=== PATIENT | male | born 1930 | race Caucasian/White ===

== ENCOUNTER → 2016-07-03 | Outpatient (REF) | payer MEDICARE, OTHER ==
[~2016-07-03] MED LIST: ALLO100T PO; ASPI1TAB PO; ASPI325T PO; ATOR40TA PO; DIGO0.12 PO; FINA5TAB2 PO; METO25TAB OR; NEXI40CA PO; PERC5TAB6 PO; TAMS0.4C2 PO; fish oil OR; levothyroxine OR; theophylline OR; tylenol OR; ventolin inhaler
[2016-07-03 13:53] LABS: PERCENT SATURATION 9.7 % (19.7-37.4)
== END ==
LOC: M LAB REF 13:11
PROVIDERS: ATTEND Internal Medicine Medical Oncology
DX: C91.90 Lymphoid leukemia, unspecified not having achieved remission (principal)

== ENCOUNTER → 2016-07-14 | Outpatient (REF) | payer MEDICARE, OTHER ==
[2016-07-14 13:46] LABS: PERCENT SATURATION 24.9 % (19.7-37.4)
== END ==
LOC: M LAB REF 12:58
PROVIDERS: ATTEND Internal Medicine Nephrology
DX: N18.9 Chronic kidney disease, unspecified (principal); D63.1 Anemia in chronic kidney disease

== ENCOUNTER → 2017-02-02 | Outpatient (CLI) | payer MEDICARE, OTHER ==
[~2017-02-02] MED LIST changes: -ATOR40TA PO; +ATOR40TA75 PO; +GASTROGRAFIN SOLUTION 30ML (Q9963) As Ordered ONE; +PERC5TAB12 PO; -PERC5TAB6 PO
--- NOTE | 2017-02-02 17:21 | REP ---
Clinical: History of testicular cancer, non-small cell lung cancer, chronic lymphocytic leukemia. Technique: Axial noncontrast images from the thoracic inlet to the upper abdomen with coronal and sagittal re-formations. Comparison: 06/19/2016. Findings: Moderate diffuse COPD and emphysematous changes are appreciated including perihilar and lower lobe bronchiectasis, as well as scattered scarring predominate noted in the left apex and right upper lobe and to a lesser extent the bilateral lung bases. An 8 mm noncalcified density in the subpleural right middle lobe (image 53) appears less conspicuous than prior examination. No further consolidation, significant nodule or mass lesion appreciated. No pleural effusion or pneumothorax. Tracheobronchial tree is patent. Right-sided volume loss and mediastinal shift is consistent with partial lobectomy as are the surgical clips in the right hilum. Sub centimeter mediastinal lymph nodes are nonspecific and remain unchanged. Atherosclerotic changes to the thoracic aorta and coronary arteries noted without aortic aneurysm or cardiomegaly. Surrounding musculoskeletal structures demonstrate osteopenia and degenerative changes including old healed right rib fractures. Impression: 1. Diffuse moderate COPD and emphysematous changes along with bronchiectasis and scattered scarring as well as postsurgical changes involving the right hemithorax which remains stable. 2. 8 mm noncalcified density in the periphery of the right middle lobe is less conspicuous than prior examination with less solid component noted. However, the patient's history a follow-up examination at 6-9 months may be warranted. 3. No further acute mediastinal or pleuroparenchymal process appreciated. Signed by Sam Maier MD 02/02/2017 05:13 P
--- NOTE | 2017-02-02 17:32 | REP ---
Clinical: History of testicular cancer, non-small cell lung cancer, chronic lymphocytic leukemia for evaluation of bladder mass. Comparison: 12/01/2016. Findings: Lung bases demonstrate moderate emphysematous changes and stable 9 mm nodule in the periphery of the right middle lobe along with bibasilar scarring. Liver, spleen, pancreas, gallbladder, bilateral adrenal glands are normal. Left kidney appears atrophic and bilateral renal rounded lesions are appreciated likely representing simple and hyperdense cysts although mass lesion cannot be excluded in exophytic right lateral lesion measuring 2.2 cm. The enteric system is without obstruction or acute inflammatory process scattered sigmoid diverticula noted without acute diverticulitis. Pelvis demonstrates enlarged prostate gland with mass effect extending into the bladder base which warrants urological consultation. No ascites. No significant adenopathy. No further obvious mass lesion appreciated. Atherosclerotic changes to the aorta and vasculature noted along with aorto-iliac stents. No free air. Osseous structures demonstrate degenerative changes without focal osseous abnormality. Impression: 1. Stable 9 mm right middle lobe lung nodule and bibasilar emphysematous changes with scarring. 2. Renal lesions likely representing simple and complex cysts although ultrasound may be warranted for further investigation to rule out right renal mass. 3. Diverticulosis without acute diverticulitis. 4. Enlarged prostate gland with significant mass effect into the base of the bladder warrants urological consultation. 5. No ascites, adenopathy, or further mass lesion identified within the abdomen and pelvis. Signed by Sam Maier MD 02/02/2017 05:23 P
== END ==
LOC: M RAD 15:06
PROVIDERS: ATTEND Internal Medicine Medical Oncology
DX: C34.91 Malignant neoplasm of unspecified part of right bronchus or lung (principal); N28.1 Cyst of kidney, acquired; K57.90 Diverticulosis of intestine, part unspecified, without perforation or abscess without bleeding; Z85.47 Personal history of malignant neoplasm of testis; C91.10 Chronic lymphocytic leukemia of B-cell type not having achieved remission
CPT/HCPCS: 71250; 74176; Q9963

== ENCOUNTER 2017-08-14 18:17 | Inpatient (IN) | payer MEDICARE, OTHER ==
[2017-08-14 19:31] LABS: BASO % 0.4 % (0.0-1.0); EOS # 0.1 10^3/uL (0.0-0.50); EOS % 1.3 % (0.0-3.0); HEMATOCRIT 33.2 % (42.0-52.0); IMMATURE GRANULOCYTE % 0.9 % (0-3.0); LYMPH % 11.6 % (24.0-44.0); MEAN CORPUSCULAR HEMOGLOBIN 29.7 pg (27.0-33.0); MEAN CORPUSCULAR HGB CONC 33.1 g/dl (32.0-36.5); MEAN CORPUSCULAR VOLUME 89.7 fl (80.0-96.0); MONO # 1.1 10^3/uL (0.0-0.8); MONO % 13.4 % (0.0-5.0); NEUTROPHILS # 5.9 10^3/uL (1.8-7.7); NEUTROPHILS % 72.4 % (36.0-66.0); PLATELET COUNT, AUTOMATED 260 10^3/uL (150-450); RED CELL DISTRIBUTION WIDTH 13.9 % (11.5-14.5); WHITE BLOOD COUNT 8.2 10^3/uL (4.0-10.0)
[2017-08-14 19:44] LABS: INR 1.06
[2017-08-14 20:10] LABS: LACTIC ACID SEPSIS PROTOCOL 1.1 MMOL/L (0.4-2.0)
[2017-08-14 20:10] LABS: ALBUMIN 2.8 GM/DL (3.2-5.2); ALBUMIN/GLOBULIN RATIO 0.64 (1.00-1.93); ALKALINE PHOSPHATASE 78 U/L (45-117); ALT/SGPT 10 U/L (12-78); ANION GAP 9 MEQ/L (8-16); AST/SGOT 9 U/L (7-37); BILIRUBIN,DIRECT 0.1 MG/DL (0.0-0.2); BILIRUBIN,TOTAL 0.3 MG/DL (0.2-1.0); BLOOD UREA NITROGEN 18 MG/DL (7-18); CALCIUM LEVEL 8.6 MG/DL (8.8-10.2); CARBON DIOXIDE LEVEL 24 MEQ/L (21-32); CHLORIDE LEVEL 106 MEQ/L (98-107); CPK CREATINE PHOSPHOKINASE 29 U/L (39-308); CREATININE FOR GFR 2.01 MG/DL (0.70-1.30); GLOMERULAR FILTRATION RATE 33.7 (>35); GLUCOSE, FASTING 105 MG/DL (70-100); POTASSIUM SERUM 4.3 MEQ/L (3.5-5.1); SODIUM LEVEL 139 MEQ/L (136-145); TOTAL PROTEIN 7.2 GM/DL (6.4-8.2); TROPONIN I < 0.02 NG/ML (< 0.10)
[2017-08-14 20:11] LABS: INFLUENZA A AMPLIFICATION NEGATIVE (NEGATIVE); INFLUENZA B AMPLIFICATION NEGATIVE (NEGATIVE)
[2017-08-14 20:15] LABS: MB/CK RELATIVE INDEX 3.44 (< OR =4); NT-PRO BNP 389 PG/ML (<450); THYROID STIMULATING HORMONE 0.642 uIU/ML (0.358-3.740)
[2017-08-14 20:20] LABS: DIGOXIN LEVEL 0.1 NG/ML (0.5-2.0)
[2017-08-14] MEDS: IPRATROPIUM 0.5MG/ALBUTEROL 2.5MG INH SOL UD 3ML (DUONEB)(J7620) NEB (20:20)
[2017-08-14] MEDS: NS 500 ML IV (22:00)
[2017-08-15] MEDS ORDERED: ALBUTEROL 90 MCG/ACT 8GM HFA INHALER INH (02:30)
[2017-08-15] MEDS ORDERED: PILL CUTTER/CRUSHER XX (03:00)
[2017-08-15] MEDS ORDERED: ACETAMINOPHEN TAB 650MG DOSE (2X325MG) As Ordered (03:21)
[2017-08-15] MEDS: ONDANSETRON 4MG/2ML VIAL (J2405) IV (03:30)
[2017-08-15] MEDS: ACETAMINOPHEN TAB 650MG DOSE (2X325MG) PO (03:30)
[2017-08-15] MEDS: GASTROGRAFIN SOLUTION 30ML PO ×2 (03:42→04:15)
[2017-08-15] MEDS: NS 1,000 ML IV ×3 (03:45→21:20)
[2017-08-15] MEDS: LEVOTHYROXINE 112MCG TABLET (0.112MG) PO (05:34)
[2017-08-15] MEDS: HEPARIN SOD (PORCINE) 5000 UNITS/ML VIAL SC ×3 (05:34→21:20)
[2017-08-15 07:19] LABS: ALBUMIN 2.3 GM/DL (3.2-5.2); ALBUMIN/GLOBULIN RATIO 0.64 (1.00-1.93); ALKALINE PHOSPHATASE 63 U/L (45-117); ALT/SGPT 6 U/L (12-78); ANION GAP 11 MEQ/L (8-16); AST/SGOT 8 U/L (7-37); BILIRUBIN,TOTAL 0.3 MG/DL (0.2-1.0); BLOOD UREA NITROGEN 17 MG/DL (7-18); CALCIUM LEVEL 7.9 MG/DL (8.8-10.2); CARBON DIOXIDE LEVEL 22 MEQ/L (21-32); CHLORIDE LEVEL 109 MEQ/L (98-107); CREATININE FOR GFR 1.86 MG/DL (0.70-1.30); GLOMERULAR FILTRATION RATE 36.9 (>35); GLUCOSE, FASTING 106 MG/DL (70-100); SODIUM LEVEL 142 MEQ/L (136-145); TOTAL PROTEIN 5.9 GM/DL (6.4-8.2)
[2017-08-15] MEDS: FINASTERIDE 5 MG TAB PO (08:29)
[2017-08-15] MEDS: PANTOPRAZOLE 40MG INJ (PROTONIX) (C9113) IV (08:29)
[2017-08-15] MEDS: METOPROLOL TART 25 MG TABLET PO ×2 (08:30→21:24)
[2017-08-15] MEDS: ALLOPURINOL 300 MG TAB PO (08:30)
[2017-08-15] MEDS: CETIRIZINE (ZyrTEC) 10 MG TAB PO (09:59)
[2017-08-15] MEDS: ALBUTEROL SULFATE 2.5 MG/0.5 ML INH NEB SOLN INH (20:28)
[2017-08-15] MEDS: TAMSULOSIN 0.4 MG CAP PO (21:20)
[2017-08-15] MEDS: ROSUVASTATIN 10 MG TAB (CRESTOR) PO (21:20)
[2017-08-16] MEDS: LEVOTHYROXINE 112MCG TABLET (0.112MG) PO (06:07)
[2017-08-16] MEDS: HEPARIN SOD (PORCINE) 5000 UNITS/ML VIAL SC ×3 (06:07→20:55)
[2017-08-16] MEDS: PANTOPRAZOLE 40MG INJ (PROTONIX) (C9113) IV (07:48)
[2017-08-16] MEDS: FINASTERIDE 5 MG TAB PO (07:48)
[2017-08-16] MEDS: CETIRIZINE (ZyrTEC) 10 MG TAB PO (07:48)
[2017-08-16] MEDS: ALLOPURINOL 300 MG TAB PO (07:49)
[2017-08-16] MEDS: amLODIPine 5 MG TAB PO (07:49)
[2017-08-16] MEDS: METOPROLOL TART 25 MG TABLET PO ×2 (07:49→20:55)
[2017-08-16 08:01] LABS: HEMATOCRIT 27.5 % (42.0-52.0); HEMOGLOBIN 8.9 g/dl (14.0-18.0); MEAN CORPUSCULAR HEMOGLOBIN 29.5 pg (27.0-33.0); MEAN CORPUSCULAR HGB CONC 32.4 g/dl (32.0-36.5); MEAN CORPUSCULAR VOLUME 91.1 fl (80.0-96.0); PLATELET COUNT, AUTOMATED 177 10^3/uL (150-450); RED BLOOD COUNT 3.02 10^6/uL (4.30-6.10); RED CELL DISTRIBUTION WIDTH 13.9 % (11.5-14.5); WHITE BLOOD COUNT 8.3 10^3/uL (4.0-10.0)
[2017-08-16 08:19] LABS: ANION GAP 8 MEQ/L (8-16); BLOOD UREA NITROGEN 13 MG/DL (7-18); CALCIUM LEVEL 7.5 MG/DL (8.8-10.2); CARBON DIOXIDE LEVEL 22 MEQ/L (21-32); CHLORIDE LEVEL 109 MEQ/L (98-107); CREATININE FOR GFR 1.72 MG/DL (0.70-1.30); GLOMERULAR FILTRATION RATE 40.3 (>35); GLUCOSE, FASTING 104 MG/DL (70-100); MAGNESIUM LEVEL 1.5 MG/DL (1.8-2.4); POTASSIUM SERUM 3.9 MEQ/L (3.5-5.1); SODIUM LEVEL 139 MEQ/L (136-145)
[2017-08-16] MEDS: ALBUTEROL SULFATE 2.5 MG/0.5 ML INH NEB SOLN INH ×3 (09:26→21:17)
[2017-08-16] MEDS: ACETAMINOPHEN TAB 650MG DOSE (2X325MG) PO (13:54)
[2017-08-16] MEDS: MAG SULF 1GM/100ML (MAG RUN) 1 GM in APPROPRIATE DILUENT 1 EA IV (13:54)
[2017-08-16] MEDS: ONDANSETRON 4MG/2ML VIAL (J2405) IV (13:54)
[2017-08-16] MEDS: ROSUVASTATIN 10 MG TAB (CRESTOR) PO (20:55)
[2017-08-16] MEDS: TAMSULOSIN 0.4 MG CAP PO (20:55)
[2017-08-17 05:43] LABS: HEMATOCRIT 26.4 % (42.0-52.0); HEMOGLOBIN 8.6 g/dl (14.0-18.0); MEAN CORPUSCULAR HGB CONC 32.6 g/dl (32.0-36.5); MEAN CORPUSCULAR VOLUME 88.9 fl (80.0-96.0); PLATELET COUNT, AUTOMATED 192 10^3/uL (150-450); RED BLOOD COUNT 2.97 10^6/uL (4.30-6.10); RED CELL DISTRIBUTION WIDTH 13.9 % (11.5-14.5); WHITE BLOOD COUNT 6.8 10^3/uL (4.0-10.0)
[2017-08-17] MEDS: LEVOTHYROXINE 112MCG TABLET (0.112MG) PO (05:51)
[2017-08-17] MEDS: HEPARIN SOD (PORCINE) 5000 UNITS/ML VIAL SC ×3 (05:51→15:51)
[2017-08-17 06:05] LABS: ANION GAP 7 MEQ/L (8-16); BLOOD UREA NITROGEN 16 MG/DL (7-18); CALCIUM LEVEL 8.1 MG/DL (8.8-10.2); CARBON DIOXIDE LEVEL 24 MEQ/L (21-32); CHLORIDE LEVEL 109 MEQ/L (98-107); CREATININE FOR GFR 1.75 MG/DL (0.70-1.30); FERRITIN 322 NG/ML (26-388); GLOMERULAR FILTRATION RATE 39.5 (>35); GLUCOSE, FASTING 108 MG/DL (70-100); IRON (FE) 11 UG/DL (65-175); PERCENT SATURATION 8.9 % (19.7-50.0); POTASSIUM SERUM 4.4 MEQ/L (3.5-5.1); SODIUM LEVEL 140 MEQ/L (136-145); TOTAL IRON BINDING CAPACITY 124 UG/DL (250-450)
[2017-08-17 09:28] LABS: VITAMIN B12 LEVEL 760 PG/ML (247-911)
[2017-08-17 09:30] LABS: FOLATE 15.4 NG/ML (>5.4)
[2017-08-17] MEDS: PANTOPRAZOLE 40MG INJ (PROTONIX) (C9113) IV (09:38)
[2017-08-17] MEDS: ALLOPURINOL 300 MG TAB PO (09:39)
[2017-08-17] MEDS: CETIRIZINE (ZyrTEC) 10 MG TAB PO (09:39)
[2017-08-17] MEDS: FINASTERIDE 5 MG TAB PO (09:39)
[2017-08-17] MEDS: FERROUS SULFATE 325MG TAB PO (09:39)
[2017-08-17] MEDS: METOPROLOL TART 25 MG TABLET PO ×2 (09:42→20:20)
[2017-08-17] MEDS: amLODIPine 5 MG TAB PO (09:42)
[2017-08-17] MEDS: ALBUTEROL SULFATE 2.5 MG/0.5 ML INH NEB SOLN INH (09:51)
[2017-08-17 15:21] LABS: D-DIMER QUANT 3870.5 ng/ml (<500)
[2017-08-17 15:25] LABS: CPK CREATINE PHOSPHOKINASE 30 U/L (39-308); TROPONIN I < 0.02 NG/ML (< 0.10)
[2017-08-17] MEDS: IPRATROPIUM 0.5MG/ALBUTEROL 2.5MG INH SOL UD 3ML (DUONEB)(J7620) NEB ×3 (15:28→23:41)
[2017-08-17 15:29] LABS: CK-MB VALUE MASS < 1.0 NG/ML (<3.6); MB/CK RELATIVE INDEX 3.33 (< OR =4)
[2017-08-17] MEDS ORDERED: ALBUTEROL SULFATE 2.5 MG/0.5 ML INH NEB SOLN INH (16:45)
[2017-08-17 16:57] LABS: HEMATOCRIT 28.5 % (42.0-52.0); HEMOGLOBIN 9.2 g/dl (14.0-18.0); MEAN CORPUSCULAR HEMOGLOBIN 29.5 pg (27.0-33.0); MEAN CORPUSCULAR HGB CONC 32.3 g/dl (32.0-36.5); MEAN CORPUSCULAR VOLUME 91.3 fl (80.0-96.0); PLATELET COUNT, AUTOMATED 191 10^3/uL (150-450); RED BLOOD COUNT 3.12 10^6/uL (4.30-6.10); WHITE BLOOD COUNT 8.3 10^3/uL (4.0-10.0)
[2017-08-17 17:25] LABS: PARTIAL THROMBOPLASTIN TIME 38.1 SECONDS (26.8-37.9)
[2017-08-17] MEDS: HEPARIN DRIP 25,000 UNITS in APPROPRIATE DILUENT 1 EA IV (18:17)
[2017-08-17] MEDS: NS 1,000 ML IV (18:23)
[2017-08-17] MEDS: methylPREDNISolone INJ 40 MG/1 ML VIAL (J2920) IV (18:23)
[2017-08-17] MEDS: ROSUVASTATIN 10 MG TAB (CRESTOR) PO (20:18)
[2017-08-17] MEDS: TAMSULOSIN 0.4 MG CAP PO (20:18)
[2017-08-18 00:22] LABS: PARTIAL THROMBOPLASTIN TIME 80.3 SECONDS (26.8-37.9)
[2017-08-18] MEDS: methylPREDNISolone INJ 40 MG/1 ML VIAL (J2920) IV ×3 (01:22→17:03)
[2017-08-18] MEDS: IPRATROPIUM 0.5MG/ALBUTEROL 2.5MG INH SOL UD 3ML (DUONEB)(J7620) NEB ×6 (04:00→23:31)
[2017-08-18 05:36] LABS: HEMOGLOBIN 8.8 g/dl (14.0-18.0); MEAN CORPUSCULAR HEMOGLOBIN 29.2 pg (27.0-33.0); MEAN CORPUSCULAR HGB CONC 32.6 g/dl (32.0-36.5); MEAN CORPUSCULAR VOLUME 89.7 fl (80.0-96.0); PLATELET COUNT, AUTOMATED 192 10^3/uL (150-450); RED BLOOD COUNT 3.01 10^6/uL (4.30-6.10); RED CELL DISTRIBUTION WIDTH 13.7 % (11.5-14.5); WHITE BLOOD COUNT 8.2 10^3/uL (4.0-10.0)
[2017-08-18 05:50] LABS: PARTIAL THROMBOPLASTIN TIME 74.9 SECONDS (26.8-37.9)
[2017-08-18 05:51] LABS: ANION GAP 9 MEQ/L (8-16); BLOOD UREA NITROGEN 22 MG/DL (7-18); CALCIUM LEVEL 8.2 MG/DL (8.8-10.2); CARBON DIOXIDE LEVEL 21 MEQ/L (21-32); CHLORIDE LEVEL 107 MEQ/L (98-107); CREATININE FOR GFR 1.58 MG/DL (0.70-1.30); GLOMERULAR FILTRATION RATE 44.5 (>35); GLUCOSE, FASTING 196 MG/DL (70-100); POTASSIUM SERUM 4.5 MEQ/L (3.5-5.1); SODIUM LEVEL 137 MEQ/L (136-145)
[2017-08-18] MEDS: LEVOTHYROXINE 112MCG TABLET (0.112MG) PO (06:36)
[2017-08-18] MEDS: CETIRIZINE (ZyrTEC) 10 MG TAB PO (09:07)
[2017-08-18] MEDS: FINASTERIDE 5 MG TAB PO (09:07)
[2017-08-18] MEDS: METOPROLOL TART 25 MG TABLET PO ×2 (09:08→20:38)
[2017-08-18] MEDS: amLODIPine 5 MG TAB PO (09:08)
[2017-08-18] MEDS: FERROUS SULFATE 325MG TAB PO (09:08)
[2017-08-18] MEDS: PANTOPRAZOLE 40MG INJ (PROTONIX) (C9113) IV (09:09)
[2017-08-18] MEDS: ALLOPURINOL 300 MG TAB PO (09:09)
[2017-08-18] MEDS: HEPARIN DRIP 25,000 UNITS in APPROPRIATE DILUENT 1 EA IV (14:26)
[2017-08-18] MEDS: ROSUVASTATIN 10 MG TAB (CRESTOR) PO (20:38)
[2017-08-18] MEDS: TAMSULOSIN 0.4 MG CAP PO (20:38)
[2017-08-19] MEDS: methylPREDNISolone INJ 40 MG/1 ML VIAL (J2920) IV ×2 (01:06→09:07)
[2017-08-19] MEDS: IPRATROPIUM 0.5MG/ALBUTEROL 2.5MG INH SOL UD 3ML (DUONEB)(J7620) NEB ×6 (04:00→23:53)
[2017-08-19] MEDS: LEVOTHYROXINE 112MCG TABLET (0.112MG) PO (06:07)
[2017-08-19 06:37] LABS: HEMATOCRIT 27.6 % (42.0-52.0); MEAN CORPUSCULAR HGB CONC 32.6 g/dl (32.0-36.5); PLATELET COUNT, AUTOMATED 255 10^3/uL (150-450); RED CELL DISTRIBUTION WIDTH 13.9 % (11.5-14.5); WHITE BLOOD COUNT 16.6 10^3/uL (4.0-10.0)
[2017-08-19 06:52] LABS: PARTIAL THROMBOPLASTIN TIME 72.3 SECONDS (26.8-37.9)
[2017-08-19 06:53] LABS: ANION GAP 9 MEQ/L (8-16); BLOOD UREA NITROGEN 34 MG/DL (7-18); CALCIUM LEVEL 8.5 MG/DL (8.8-10.2); CARBON DIOXIDE LEVEL 22 MEQ/L (21-32); CHLORIDE LEVEL 109 MEQ/L (98-107); GLOMERULAR FILTRATION RATE 47.2 (>35); GLUCOSE, FASTING 144 MG/DL (70-100); POTASSIUM SERUM 4.3 MEQ/L (3.5-5.1); SODIUM LEVEL 140 MEQ/L (136-145)
[2017-08-19] MEDS: ALLOPURINOL 300 MG TAB PO (09:07)
[2017-08-19] MEDS: PANTOPRAZOLE 40MG INJ (PROTONIX) (C9113) IV (09:07)
[2017-08-19] MEDS: FINASTERIDE 5 MG TAB PO (09:08)
[2017-08-19] MEDS: amLODIPine 5 MG TAB PO (09:08)
[2017-08-19] MEDS: FERROUS SULFATE 325MG TAB PO (09:08)
[2017-08-19] MEDS: CETIRIZINE (ZyrTEC) 10 MG TAB PO (09:08)
[2017-08-19] MEDS: METOPROLOL TART 25 MG TABLET PO ×2 (09:09→21:13)
[2017-08-19] MEDS: HEPARIN DRIP 25,000 UNITS in APPROPRIATE DILUENT 1 EA IV (13:42)
[2017-08-19] MEDS: predniSONE 10 MG TAB PO (14:17)
[2017-08-19] MEDS: TAMSULOSIN 0.4 MG CAP PO (21:13)
[2017-08-19] MEDS: ROSUVASTATIN 10 MG TAB (CRESTOR) PO (21:13)
[2017-08-19] MEDS: ONDANSETRON 4MG/2ML VIAL (J2405) IV (22:03)
[2017-08-20] MEDS: IPRATROPIUM 0.5MG/ALBUTEROL 2.5MG INH SOL UD 3ML (DUONEB)(J7620) NEB ×5 (03:38→21:20)
[2017-08-20] MEDS: LEVOTHYROXINE 112MCG TABLET (0.112MG) PO (05:32)
[2017-08-20] MEDS: ONDANSETRON 4MG/2ML VIAL (J2405) IV (05:32)
[2017-08-20 07:32] LABS: HEMATOCRIT 28.4 % (42.0-52.0); HEMOGLOBIN 9.3 g/dl (14.0-18.0); MEAN CORPUSCULAR HEMOGLOBIN 29.2 pg (27.0-33.0); MEAN CORPUSCULAR HGB CONC 32.7 g/dl (32.0-36.5); PLATELET COUNT, AUTOMATED 287 10^3/uL (150-450); RED BLOOD COUNT 3.19 10^6/uL (4.30-6.10); RED CELL DISTRIBUTION WIDTH 14.3 % (11.5-14.5); WHITE BLOOD COUNT 16.4 10^3/uL (4.0-10.0)
[2017-08-20 07:41] LABS: ANION GAP 9 MEQ/L (8-16); BLOOD UREA NITROGEN 45 MG/DL (7-18); CALCIUM LEVEL 8.6 MG/DL (8.8-10.2); CARBON DIOXIDE LEVEL 22 MEQ/L (21-32); CHLORIDE LEVEL 111 MEQ/L (98-107); CREATININE FOR GFR 1.71 MG/DL (0.70-1.30); GLOMERULAR FILTRATION RATE 40.6 (>35); GLUCOSE, FASTING 128 MG/DL (70-100); POTASSIUM SERUM 4.2 MEQ/L (3.5-5.1); SODIUM LEVEL 142 MEQ/L (136-145)
[2017-08-20 07:41] LABS: PARTIAL THROMBOPLASTIN TIME 51.7 SECONDS (26.8-37.9)
[2017-08-20] MEDS: HEPARIN SOD (PORCINE) 5000 UNITS/ML VIAL IV (08:13)
[2017-08-20] MEDS: HEPARIN DRIP 25,000 UNITS in APPROPRIATE DILUENT 1 EA IV (08:15)
[2017-08-20] MEDS: FERROUS SULFATE 325MG TAB PO (08:35)
[2017-08-20] MEDS: PANTOPRAZOLE 40MG INJ (PROTONIX) (C9113) IV (08:35)
[2017-08-20] MEDS: METOPROLOL TART 25 MG TABLET PO ×2 (09:08→20:55)
[2017-08-20] MEDS: amLODIPine 5 MG TAB PO ×2 (09:08→09:14)
[2017-08-20] MEDS: SUCRALFATE SUSP 1GM/10ML UD PO ×4 (09:34→20:54)
[2017-08-20] MEDS: CETIRIZINE (ZyrTEC) 10 MG TAB PO (10:41)
[2017-08-20] MEDS: ALLOPURINOL 300 MG TAB PO (10:42)
[2017-08-20] MEDS: FINASTERIDE 5 MG TAB PO (10:42)
[2017-08-20] MEDS: predniSONE 10 MG TAB PO (10:42)
[2017-08-20] MEDS: THEOPHYLLINE (THEO-24) 100MG SR **CAPSULE PO (10:43)
[2017-08-20 14:32] LABS: PARTIAL THROMBOPLASTIN TIME 47.7 SECONDS (26.8-37.9)
[2017-08-20] MEDS: TAMSULOSIN 0.4 MG CAP PO (20:54)
[2017-08-20] MEDS: ROSUVASTATIN 10 MG TAB (CRESTOR) PO (20:54)
[2017-08-21] MEDS: IPRATROPIUM 0.5MG/ALBUTEROL 2.5MG INH SOL UD 3ML (DUONEB)(J7620) NEB ×7 (00:13→23:26)
[2017-08-21] MEDS: LEVOTHYROXINE 112MCG TABLET (0.112MG) PO (05:43)
[2017-08-21 06:09] LABS: HEMOGLOBIN 8.4 g/dl (14.0-18.0); MEAN CORPUSCULAR HEMOGLOBIN 28.9 pg (27.0-33.0); MEAN CORPUSCULAR HGB CONC 32.3 g/dl (32.0-36.5); MEAN CORPUSCULAR VOLUME 89.3 fl (80.0-96.0); PLATELET COUNT, AUTOMATED 251 10^3/uL (150-450); RED BLOOD COUNT 2.91 10^6/uL (4.30-6.10); RED CELL DISTRIBUTION WIDTH 14.4 % (11.5-14.5); WHITE BLOOD COUNT 11.8 10^3/uL (4.0-10.0)
[2017-08-21 06:28] LABS: ANION GAP 7 MEQ/L (8-16); BLOOD UREA NITROGEN 51 MG/DL (7-18); CALCIUM LEVEL 8.3 MG/DL (8.8-10.2); CARBON DIOXIDE LEVEL 23 MEQ/L (21-32); CHLORIDE LEVEL 110 MEQ/L (98-107); CREATININE FOR GFR 1.67 MG/DL (0.70-1.30); GLOMERULAR FILTRATION RATE 41.7 (>35); GLUCOSE, FASTING 108 MG/DL (70-100); POTASSIUM SERUM 4.5 MEQ/L (3.5-5.1); SODIUM LEVEL 140 MEQ/L (136-145)
[2017-08-21] MEDS: SUCRALFATE SUSP 1GM/10ML UD PO ×4 (08:04→22:17)
[2017-08-21] MEDS: METOPROLOL TART 25 MG TABLET PO ×2 (08:04→22:17)
[2017-08-21] MEDS: amLODIPine 5 MG TAB PO (08:04)
[2017-08-21] MEDS: ALLOPURINOL 300 MG TAB PO (08:04)
[2017-08-21] MEDS: PANTOPRAZOLE 40MG INJ (PROTONIX) (C9113) IV (08:04)
[2017-08-21] MEDS: CETIRIZINE (ZyrTEC) 10 MG TAB PO (08:04)
[2017-08-21] MEDS: FERROUS SULFATE 325MG TAB PO (08:05)
[2017-08-21] MEDS: predniSONE 10 MG TAB PO (08:05)
[2017-08-21] MEDS: THEOPHYLLINE (THEO-24) 100MG SR **CAPSULE PO (08:05)
[2017-08-21] MEDS: FINASTERIDE 5 MG TAB PO (08:05)
[2017-08-21] MEDS: ROSUVASTATIN 10 MG TAB (CRESTOR) PO (22:16)
[2017-08-21] MEDS: TAMSULOSIN 0.4 MG CAP PO (22:16)
[2017-08-22] MEDS: IPRATROPIUM 0.5MG/ALBUTEROL 2.5MG INH SOL UD 3ML (DUONEB)(J7620) NEB ×2 (02:36→07:58)
[2017-08-22] MEDS: LEVOTHYROXINE 112MCG TABLET (0.112MG) PO (05:43)
[2017-08-22 06:07] LABS: HEMATOCRIT 27.7 % (42.0-52.0); MEAN CORPUSCULAR HEMOGLOBIN 29.1 pg (27.0-33.0); MEAN CORPUSCULAR HGB CONC 32.5 g/dl (32.0-36.5); MEAN CORPUSCULAR VOLUME 89.6 fl (80.0-96.0); PLATELET COUNT, AUTOMATED 264 10^3/uL (150-450); RED BLOOD COUNT 3.09 10^6/uL (4.30-6.10); RED CELL DISTRIBUTION WIDTH 14.6 % (11.5-14.5); WHITE BLOOD COUNT 12.1 10^3/uL (4.0-10.0)
[2017-08-22 06:24] LABS: ANION GAP 9 MEQ/L (8-16); BLOOD UREA NITROGEN 48 MG/DL (7-18); CALCIUM LEVEL 8.2 MG/DL (8.8-10.2); CARBON DIOXIDE LEVEL 24 MEQ/L (21-32); CHLORIDE LEVEL 107 MEQ/L (98-107); CREATININE FOR GFR 1.66 MG/DL (0.70-1.30); GLUCOSE, FASTING 87 MG/DL (70-100); POTASSIUM SERUM 4.4 MEQ/L (3.5-5.1); SODIUM LEVEL 140 MEQ/L (136-145)
[2017-08-22] MEDS: SUCRALFATE SUSP 1GM/10ML UD PO (07:30)
[2017-08-22] MEDS: THEOPHYLLINE (THEO-24) 100MG SR **CAPSULE PO (09:00)
[2017-08-22] MEDS: PANTOPRAZOLE 40MG INJ (PROTONIX) (C9113) IV (10:10)
[2017-08-22] MEDS: FINASTERIDE 5 MG TAB PO (10:11)
[2017-08-22] MEDS: CETIRIZINE (ZyrTEC) 10 MG TAB PO (10:11)
[2017-08-22] MEDS: ALLOPURINOL 300 MG TAB PO (10:13)
[2017-08-22] MEDS: METOPROLOL TART 25 MG TABLET PO (10:13)
[2017-08-22] MEDS: amLODIPine 5 MG TAB PO (10:14)
[2017-08-22] MEDS: predniSONE 10 MG TAB PO (10:26)
== END 2017-08-22 11:19 | disposition home health service (06) | DRG 392 ==
LOC: M ED INP 08-15 01:40 → M ED 18:17 → M MSPAV 08-15 12:23
DX: K52.9 Noninfective gastroenteritis and colitis, unspecified (principal); C95.91 Leukemia, unspecified, in remission; I12.9 Hypertensive chronic kidney disease with stage 1 through stage 4 chronic kidney disease, or unspecified chronic kidney disease; E78.5 Hyperlipidemia, unspecified; I25.10 Atherosclerotic heart disease of native coronary artery without angina pectoris; M50.20 Other cervical disc displacement, unspecified cervical region; D63.1 Anemia in chronic kidney disease; K21.9 Gastro-esophageal reflux disease without esophagitis; J44.9 Chronic obstructive pulmonary disease, unspecified; K44.9 Diaphragmatic hernia without obstruction or gangrene; N18.3 Chronic kidney disease, stage 3 (moderate); N40.0 Benign prostatic hyperplasia without lower urinary tract symptoms; Z85.118 Personal history of other malignant neoplasm of bronchus and lung; Z85.47 Personal history of malignant neoplasm of testis; Z90.2 Acquired absence of lung [part of]; Z95.5 Presence of coronary angioplasty implant and graft; Z87.891 Personal history of nicotine dependence; Z79.899 Other long term (current) drug therapy

== ENCOUNTER → 2017-10-09 | Outpatient (CLI) | payer MEDICARE, OTHER ==
[~2017-10-09] MED LIST changes: -ALLO100T PO; -ASPI1TAB PO; -ASPI325T PO; -ATOR40TA75 PO; -DIGO0.12 PO; -FINA5TAB2 PO; -GASTROGRAFIN SOLUTION 30ML (Q9963) As Ordered ONE; -METO25TAB OR; -NEXI40CA PO; -PERC5TAB12 PO; +PROHANCE 279.3MG/ML 5ML VIAL (A9576) As Ordered; -TAMS0.4C2 PO; -fish oil OR; -levothyroxine OR; -theophylline OR; -tylenol OR; -ventolin inhaler
== END ==
LOC: M RAD 15:24
DX: N28.89 Other specified disorders of kidney and ureter (principal); N28.1 Cyst of kidney, acquired; N26.1 Atrophy of kidney (terminal)
CPT/HCPCS: A9576

== ENCOUNTER → 2017-10-12 | Outpatient (REF) | payer MEDICARE, OTHER ==
[2017-10-15 18:54] LABS: FERRITIN 162 NG/ML (26-388); IRON (FE) 28 UG/DL (65-175); PERCENT SATURATION 12.4 % (19.7-50.0); TOTAL IRON BINDING CAPACITY 225 UG/DL (250-450)
== END ==
LOC: M LAB REF 18:00
DX: N18.9 Chronic kidney disease, unspecified (principal); D63.1 Anemia in chronic kidney disease
CPT/HCPCS: 83550

== ENCOUNTER → 2017-11-05 | Outpatient (REF) | payer MEDICARE, OTHER ==
[2017-11-05 14:02] LABS: FERRITIN 125 NG/ML (26-388); IRON (FE) 38 UG/DL (65-175); PERCENT SATURATION 15.7 % (19.7-50.0); TOTAL IRON BINDING CAPACITY 242 UG/DL (250-450)
== END ==
LOC: M LAB REF 13:18
DX: D50.9 Iron deficiency anemia, unspecified (principal)
CPT/HCPCS: 83550

== ENCOUNTER 2017-12-19 09:59 | Day surgery (SDC) | payer MEDICARE, OTHER ==
[~2017-12-19 09:59] MED LIST changes: +LIDOCAINE 2% MDV 20 ML VIAL As Ordered; -PROHANCE 279.3MG/ML 5ML VIAL (A9576) As Ordered; +PROPOFOL 200 MG/20 ML VIAL As Ordered
[2017-12-19] MEDS: NS 1,000 ML IV (10:15)
[2017-12-19] MEDS ORDERED: ePHEDrine SULFATE 25 MG/5 ML(5MG/ML) SYRINGE As Ordered (12:19)
== END 2017-12-19 13:11 | disposition home or self-care (01) ==
LOC: M OPP 09:59
DX: D50.9 Iron deficiency anemia, unspecified (principal); R13.10 Dysphagia, unspecified; D12.5 Benign neoplasm of sigmoid colon; D12.4 Benign neoplasm of descending colon; D12.3 Benign neoplasm of transverse colon; D12.2 Benign neoplasm of ascending colon; K64.0 First degree hemorrhoids; K31.7 Polyp of stomach and duodenum; K44.9 Diaphragmatic hernia without obstruction or gangrene; I25.119 Atherosclerotic heart disease of native coronary artery with unspecified angina pectoris; Z95.5 Presence of coronary angioplasty implant and graft; I25.2 Old myocardial infarction; I12.9 Hypertensive chronic kidney disease with stage 1 through stage 4 chronic kidney disease, or unspecified chronic kidney disease; E78.5 Hyperlipidemia, unspecified; Z97.8 Presence of other specified devices; I73.9 Peripheral vascular disease, unspecified; N18.9 Chronic kidney disease, unspecified; M10.9 Gout, unspecified; E03.9 Hypothyroidism, unspecified; K21.9 Gastro-esophageal reflux disease without esophagitis; R12 Heartburn; C95.90 Leukemia, unspecified not having achieved remission; M19.90 Unspecified osteoarthritis, unspecified site; Z87.39 Personal history of other diseases of the musculoskeletal system and connective tissue; M54.9 Dorsalgia, unspecified; Z85.118 Personal history of other malignant neoplasm of bronchus and lung; Z85.47 Personal history of malignant neoplasm of testis; Z92.3 Personal history of irradiation; J44.9 Chronic obstructive pulmonary disease, unspecified; G47.30 Sleep apnea, unspecified; N40.1 Benign prostatic hyperplasia with lower urinary tract symptoms; Z87.891 Personal history of nicotine dependence; Z79.899 Other long term (current) drug therapy
CPT/HCPCS: 45385

== ENCOUNTER → 2018-02-12 | Outpatient (CLI) | payer MEDICARE, OTHER | LOC: M RAD 09:28 | DX: C34.90 Malignant neoplasm of unspecified part of unspecified bronchus or lung (principal); R59.0 Localized enlarged lymph nodes | CPT/HCPCS: 71250 ==

== ENCOUNTER 2018-07-04 11:54 | Day surgery (SDC) | payer MEDICARE, OTHER ==
[~2018-07-04] VITALS: Ht 175.3 cm; Wt 67.0 kg
[~2018-07-04 11:54] MED LIST changes: +ALBU83IN INH; +ALLO100T PO; +AMLO5TAB6 PO; +ASPI1TAB PO; +ASPI325T PO; +ATOR40TA75 PO; +CETI10TA PO; +DIGO0.12 PO; +FINA5TAB2 PO; +FISH1000 PO; +FLOM0.4C39 PO; -LIDOCAINE 2% MDV 20 ML VIAL As Ordered; +METO25TAB OR; +METO50TA7 PO; +NEXI40CA PO; +PERC5TAB12 PO; +PRED10TA2 PO; -PROPOFOL 200 MG/20 ML VIAL As Ordered; +ROSU10TA5 PO; +SYNT112T2 PO; +TAMS0.4C2 PO; +THEO400T4 PO; +VENTAER INH; +VITA500T PO; +ZYLO300T6 PO; +fish oil OR; +levothyroxine OR; +theophylline OR; +tylenol OR; +ventolin inhaler
[2018-07-04] MEDS ORDERED: MORPHINE 4 MG/ML 1ML VIAL/SYRINGE (J2270) IV ONE (12:30)
[2018-07-04] MEDS ORDERED: ADACEL/BOOSTRIX VACCINE (DIPHTH/PERTUSS/ACELL/TETANUS)0.5ML SYR (90715) IM ONE (13:15)
[2018-07-04] MEDS ORDERED: ceFAZolin SOD 1 GM in D5W MINI-BAG PLUS 50 ML IV ONE (13:15)
[2018-07-04] MEDS ORDERED: ONDANSETRON 4MG/2ML VIAL (J2405) IV ONE (13:15)
[2018-07-04] MEDS: MORPHINE 4 MG/ML 1ML VIAL/SYRINGE (J2270) IV PRN ×2 (13:43→15:38)
[2018-07-04 14:07] LABS: HEMATOCRIT 33.2 % (42.0-52.0); HEMOGLOBIN 10.6 g/dl (13.5-17.5); MEAN CORPUSCULAR HGB CONC 31.9 g/dl (32.0-36.5); MEAN CORPUSCULAR VOLUME 94.1 fl (80.0-96.0); PLATELET COUNT, AUTOMATED 163 10^3/uL (150-450); RED BLOOD COUNT 3.53 10^6/uL (4.30-6.10); WHITE BLOOD COUNT 9.3 10^3/uL (4.0-10.0)
--- NOTE | 2018-07-04 14:30 | REP ---
Left wrist: Three views obtained portably. History: Trauma. Findings: Three views of the left wrist demonstrate a dorsally displaced comminuted fracture of the distal radial metaphysis with a 1 cm of override. A ulnocarpal articulation is dislocated. There is diffuse osteopenia. 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 Electronically Signed by Gregor Moran MD 07/04/2018 02:21 P
[2018-07-04 14:32] LABS: CALCIUM LEVEL 8.3 MG/DL (8.8-10.2); CREATININE FOR GFR 1.72 MG/DL (0.70-1.30); GLOMERULAR FILTRATION RATE 40.2 (>35); POTASSIUM SERUM 3.8 MEQ/L (3.5-5.1)
[2018-07-04 14:35] LABS: CPK CREATINE PHOSPHOKINASE 234 U/L (39-308); MB/CK RELATIVE INDEX 2.01 (< OR =4); TROPONIN I < 0.02 NG/ML (< 0.10)
--- NOTE | 2018-07-04 14:42 | REP ---
Portable left elbow: Two views. History: Portably obtained AP and cross-table lateral views demonstrate posterior elbow dislocation. There is diffuse osteopenia. No fracture is visible on these views. Impression: Posterior elbow dislocation. No fracture is visible on these views. Electronically Signed by Gregor Moran MD 07/04/2018 10:25 P
--- NOTE | 2018-07-04 14:45 | REP ---
LEFT FOREARM: TWO VIEWS. HISTORY: Trauma. FINDINGS: Portably-obtained AP and lateral views of the left forearm demonstrate a transversely oriented, comminuted fracture of the distal radial metaphysis with dorsal displacement and 1 cm of override. No distal ulnar fracture is appreciated. The proximal radius is dislocated at the elbow. The ulnotrochlear articulation is not aligned normally either. IMPRESSION: 1. Displaced comminuted overriding distal radial metaphyseal fracture. 2. Dislocation of the proximal radioulnar and radiocapitellar articulations. Possible ulnotrochlear dislocation at the elbow as well. Recommend elbow radiographs. Electronically Signed by Gregor Moran MD 07/04/2018 10:25 P
--- NOTE | 2018-07-04 14:47 | REP ---
Chest one-view HISTORY: Preop Comparison: 08/20/2017 Linear densities are present in the right upper lobe consistent with scarring. The left lung is clear. The heart is normal in size. The pulmonary vasculature is normal in appearance. Impression: No acute disease. Electronically Signed by Mau Paiz MD 07/04/2018 02:39 P
[2018-07-04] MEDS ORDERED: NITR4TASL SL (15:47)
[2018-07-04] MEDS ORDERED: SIMV10TA2 PO (15:47)
[2018-07-04] MEDS ORDERED: MIDAZOLAM INJ 2 MG/2 ML VIAL (J2250) As Ordered ONE (15:59)
[2018-07-04] MEDS ORDERED: fentaNYL 100 MCG/2 ML INJECTION (J3010) As Ordered ONE (15:59)
[2018-07-04] MEDS ORDERED: PROPOFOL 200 MG/20 ML VIAL As Ordered ONE (15:59)
[2018-07-04] MEDS ORDERED: LIDOCAINE 2% INJ 100 MG/5 ML SDV (FOR ANES.) As Ordered ONE (15:59)
[2018-07-04] MEDS ORDERED: ePHEDrine SULFATE 25 MG/5 ML(5MG/ML) SYRINGE As Ordered ONE (16:38)
[2018-07-04] MEDS ORDERED: dexameTHASONE 4 MG/ML 1ML VIAL (J1100) As Ordered ONE (16:51)
[2018-07-04] MEDS ORDERED: ONDANSETRON 4MG/2ML VIAL (J2405) As Ordered ONE (16:51)
[2018-07-04] MEDS ORDERED: ceFAZolin 1GM INJ (J0690 PER 500MG) As Ordered ONE ×2 (16:59→17:38)
[2018-07-04] MEDS ORDERED: METOPROLOL 5 MG/5 ML VIAL As Ordered ONE (18:57)
[2018-07-04] MEDS ORDERED: LR 1,000 ML IV SCH (19:00)
[2018-07-04] MEDS ORDERED: fentaNYL 100 MCG/2 ML INJECTION (J3010) IV PRN (19:00)
[2018-07-04] MEDS ORDERED: ONDANSETRON 4MG/2ML VIAL (J2405) IV PRN (19:00)
[2018-07-04] MEDS ORDERED: MORPHINE 10 MG/ML 1ML VIAL (J2270) IV PRN (19:00)
[2018-07-04] MEDS: METOPROLOL 5 MG/5 ML VIAL IV SCH ×5 (19:00→19:22)
--- NOTE | 2018-07-04 19:14 | REP ---
LEFT FOREARM, SEVEN VIEWS: HISTORY: Fracture. COMPARISON: 07/04/2018 Seven portable radiographs were obtained with the C-Arm. The patient is status post ORIF of a fracture of the distal radius. A metal fixation plate and screws are present. There is an anatomic alignment. Three portable radiographs of the elbow were included. There is no definite fracture or dislocation. Fluoro time: 2 minutes 55 seconds. IMPRESSION: The patient is status post ORIF of a fracture of the distal radius. There is anatomic alignment. Electronically Signed by Mau Paiz MD 07/04/2018 07:16 P
[2018-07-04] MEDS ORDERED: PERCOCET 5MG/325MG TAB PO PRN (19:15)
[2018-07-04] MEDS ORDERED: MORPHINE 4 MG/ML 1ML VIAL/SYRINGE (J2270) IV PRN (19:15)
[2018-07-04 19:22] VITALS: BP 185/75
[2018-07-04] MEDS: ACETAMINOPHEN TAB 650MG DOSE (2X325MG) PO PRN (19:46)
[2018-07-04 20:13] VITALS: BP 180/86
[2018-07-04] MEDS: NS 1,000 ML IV SCH (20:54)
--- NOTE | 2018-07-04 20:57 | ECGEPIP ---
Stationary ECG Study [facility] - ED Test Date: 2018-07-04 Pat Name: SUNITHA PAEZ Department: Room: - Gender: M Teletypist: : 1930 Requested By: Adam Jean Order Number: [id number] Reading MD: Johnna Augustine Measurements Intervals [place] Rate: 56 P: -15 MA: 155 QRS: -42 QRSD: 125 T: 26 QT: 458 QTc: 445 Interpretive Statements SINUS BRADYCARDIA MARKED LEFT AXIS DEVIATION RIGHT BUNDLE BRANCH BLOCK DECREASED RATE 08/20/17 Electronically Signed On 07-04-2018 20:56:57 EST by Johnna Augustine
[2018-07-04 21:00] VITALS: BP 187/89
[2018-07-04 21:30] VITALS: BP 180/84
[2018-07-04 22:00] VITALS: BP 182/85
[2018-07-04 23:00] VITALS: BP 152/72
[2018-07-05 01:00] VITALS: BP 184/82
[2018-07-05] MEDS: NS 1,000 ML IV SCH ×2 (05:51→11:10)
[2018-07-05] MEDS: ACETAMINOPHEN TAB 650MG DOSE (2X325MG) PO PRN (05:51)
[2018-07-05 06:00] VITALS: BP 161/74
[2018-07-05] MEDS ORDERED: LEVOTHYROXINE 112MCG TABLET (0.112MG) PO SCH (06:00)
[2018-07-05] MEDS ORDERED: PERC5TAB12 PO (06:35)
--- NOTE | 2018-07-05 07:40 | IPN ---
DATE OF SERVICE: 07/04/2018 CHIEF COMPLAINT: Postoperative day 1 closed reduction left elbow dislocation plus incision and drainage left open distal radius fracture and open reduction internal fixation (ORIF) of distal radius fracture with volar plate. HISTORY OF PRESENT ILLNESS: This 88-year-old man was seen today postoperative day 1. He is doing well. He is sitting up in a chair eating breakfast. He is comfortable. Definitely less pain in the upper extremity. He is ready to go home and I did advise him of followup procedures. On physical exam, his vital signs: Temperature 97.5, blood pressure 161/74, pulse rate 67. 98% on room air. Respiratory rate 12. Both of his upper extremities are warm and well perfused. Capillary refill is under 3 seconds. He is able to wiggle his fingers. Anterior interosseous nerve (AIN), posterior interosseous nerve (PIN), median, radial and ulnar nerves all intact to motor function and sensation. No cast irritation. ASSESSMENT AND PLAN: This 88-year-old man can be discharged home today whenever he is comfortable. I put in a prescription for Percocet but if that does not get put through, then certainly the office can put it through as well to his preferred pharmacy. I advised him that I would like him to followup in 1 weeks time and that him and/or the nurses will have to help make that appointment. OFELIA
[2018-07-05] MEDS ORDERED: FINASTERIDE 5 MG TAB PO SCH (09:00)
[2018-07-05] MEDS ORDERED: TAMSULOSIN 0.4 MG CAP PO SCH (09:00)
[2018-07-05 10:00] VITALS: BP 180/70
[2018-07-05] MEDS ORDERED: FUROSEMIDE 20 MG TAB PO ONE (11:00)
[2018-07-05 14:00] VITALS: BP 190/80
[2018-07-05] MEDS ORDERED: MAALOX 30 ML SUSP *UDC PO ONE (17:30)
--- NOTE | 2018-07-05 17:46 | RO ---
DATE OF PROCEDURE: 07/04/2018 PREOPERATIVE DIAGNOSES: Left elbow dislocation, plus open distal radius fracture. POSTOPERATIVE DIAGNOSES: Left elbow dislocation, plus open distal radius fracture. PLANNED PROCEDURE: Closed reduction and casting left elbow dislocation, plus incision and drainage (I and D) left distal radius fracture, plus open reduction and internal fixation (ORIF) left distal radius fracture. SURGEON: Russel Flores MD FARM ADVISOR: None. MANAGER LOAN: Dr. Castillo ANESTHESIA: General. IMPLANTS USED: Synthes distal radius 2.4 mm variable angle plate. Six head holes and for shaft holes. PREOPERATIVE PREAMBLE: This 88-year-old man unfortunately had a slip and fall on ice. Standard closed neurovascularly intact left elbow dislocation, plus an open distal radius fracture. I saw him in emergency room at [facility]. I discussed the pros and cons, risks and benefits of going ahead with open reduction, internal fixation plus I and D of the fracture site. He had gotten tetanus and 1 gram of Ancef in the emergency department. We booked and consented this as an emergency case. OPERATIVE REPORT: Patient was brought to the operating theater and administered general anesthetic. He was given one additional gram of Ancef prior to the surgery. He was placed supine on the operating room table with the arm table up to the left. I performed a gentle closed reduction with longitudinal traction with my thumbs over the olecranon process of the left elbow. This was stable on full range of motion from 0 to 135 degrees and stable on supination and pronation. Then the left upper extremity was prepped and draped in the usual sterile fashion. A sterile tourniquet was used. This was inflated for 88 minutes prior to be taken down at the end of the case. Once the sterile prep solution was allowed to thoroughly dry, I used an Esmarch bandage to thoroughly exsanguinate the limb and then the tourniquet was inflated to 250 mmHg. I made a 4-inch incision centered over the volar aspect of the flexor carpi radialis (FCR) tendon and carried this down through skin and subcutaneous tissue. Achieved meticulous hemostasis. I incised longitudinally along the sheath of the FCR and then incised longitudinally along the floor of the tendon. I retracted this radially to protect the radial artery and nerve and then elevated the pronator quadratus and flexor pollicis longus (FPL) from the radial side and towards the ulnar side. This was quite a comminuted fracture. There was a longitudinal intra-articular split as well as a nondisplaced longitudinal split on the radial side of the proximal radial shaft. I disimpacted the fracture site thoroughly. This was difficult to get out to length. Eventually, but through longitudinal traction and reduction maneuvers, I was able to get a good reduction. I then selected a four proximal hole Synthes precontoured plate, the narrow one. I used the 2.7 mm cortical bone screw to attach this at the bone and oblong hole. Prior to doing this, I used the 1.6 mm pins to marketing communications leader my position and then I was also taking 30-degree flexion views to examine the joint. Once I had the plate in perfect position, I then performed my final reduction maneuver. It appeared to be out to length with good radial inclination and at last neutral volar tilt. I placed all the distal 2.4 mm fully threaded cortical locking screws in the plate. This was all fixed to them. I ensured that they were outside of the joint by taking AP/lateral radiographs as well as 30-degree joint views. One screw was close to the joint, so I backed that out and then redirected it. This was the most ulnar and most distal screw. It appeared more along the subchondral bone again once I redirected it. Once I was satisfied with reduction, then I placed the rest of the 2.7 mm fully threaded cortical bone screws in the proximal end of the plate. This appeared to achieve good reduction. There was definite comminution along the radial column, but this appeared to be held out to length. The joint surface appeared to be congruent. The longitudinal split at the proximal fragment did not displace. I was satisfied with the reduction of the joint surface. I then thoroughly irrigated both the surgical wound as well as the small 2 cm focal type incision overlying the ulnar head on the ulnar side. I then closed subcutaneous tissue with interrupted #2-0 Vicryl stitches and then #3-0 Ethilon in a horizontal mattress fashion for the skin. The skin was cleaned with wet and dry dressings followed by application of Adaptic and sterile 4 x 8 gauze. We then placed sterile cast padding along the length of the forearm and then used the rest of the cast padding up to above the elbow. We placed a three-sided plaster of Maya slab and then overwrapped this with Boris bandage. Patient was placed into a sling and allowed the cast to dry at about 70 degrees flexion. I took final pictures, AP/lateral, of the elbow to confirm the reduction was still in place. All sponge, needle, and instrument counts were correct, and there were no complications or excessive blood loss associated with the procedure. PLAN: For the patient is to be discharged home when they are comfortable. We will give them a prescription for Percocet, and I will followup the patient in 1 week's time.
[2018-07-05] MEDS ORDERED: METOPROLOL TART 25 MG TABLET PO SCH (21:00)
== END 2018-07-05 17:45 | disposition home or self-care (01) ==
LOC: M ED 11:54 → EDBD 11:54 → M SDC 15:08 → M ED 16:08 → M MSPAV 20:13 → M SDC 07-05 17:45
PROVIDERS: ATTEND Orthopaedic Surgery Sports Medicine
DX: S52.572B Other intraarticular fracture of lower end of left radius, initial encounter for open fracture type I or II (principal); S53.105A Unspecified dislocation of left ulnohumeral joint, initial encounter; W00.0XXA Fall on same level due to ice and snow, initial encounter; Y93.89 Activity, other specified; Y92.014 Private driveway to single-family (private) house as the place of occurrence of the external cause; Y99.8 Other external cause status; I25.10 Atherosclerotic heart disease of native coronary artery without angina pectoris; I12.9 Hypertensive chronic kidney disease with stage 1 through stage 4 chronic kidney disease, or unspecified chronic kidney disease; I25.2 Old myocardial infarction; E11.22 Type 2 diabetes mellitus with diabetic chronic kidney disease; E78.5 Hyperlipidemia, unspecified; N18.9 Chronic kidney disease, unspecified; G47.33 Obstructive sleep apnea (adult) (pediatric); K21.9 Gastro-esophageal reflux disease without esophagitis; M12.9 Arthropathy, unspecified; M10.9 Gout, unspecified; Z79.899 Other long term (current) drug therapy; Z85.118 Personal history of other malignant neoplasm of bronchus and lung; Z96.1 Presence of intraocular lens
CPT/HCPCS: 11012; 24605; 25608; 71045; 73080; 73090; 73110; 80048; 82550; 82553; 84484; 85027; 90715; 93005; 96372; 96374; 96375; 96376; 99285; C1713; J0690; J1100; J2250; J2270; J2405; J3010

== ENCOUNTER 2018-09-24 11:22 | Day surgery (SDC) | payer MEDICARE, OTHER ==
[~2018-09-24] VITALS: Ht 175.3 cm; Wt 59.0 kg
[~2018-09-24 11:22] MED LIST changes: +ASPI-1 PO; -ASPI1TAB PO; -ASPI325T PO; +ASPI81TA26 PO; +FLON1SPR NARES; +METO1TAB63 OR; -METO25TAB OR; +NITR4TASL SL; +NS 1,000 ML IV ONE; +SIMV10TA2 PO; +SUCR1TA PO; +ZOFR8TAB24 PO
--- NOTE | 2018-09-24 14:17 | ROOR ---
Patient Name: Yahir Turner Procedure Date: 09/24/2018 12:16 PM Date of : 1930 Age: 88 Room: [facility] Gender: Male Note Status: Finalized Procedure: Upper GI endoscopy Indications: Epigastric abdominal pain, Dysphagia Providers: Vishal Avila MD Referring MD: PER GALEANO MD Requesting Provider: Medicines: Monitored Anesthesia Care Complications: No immediate complications. Procedure: Pre-Anesthesia Assessment: - Prior to the procedure, a History and Physical was performed, and patient medications and allergies were reviewed. The patient is competent. The risks and benefits of the procedure and the sedation options and risks were discussed with the patient. All questions were answered and informed consent was obtained. Patient identification and proposed procedure were verified by the physician, the nurse and the anesthesiologist in the procedure room. Mental Status Examination: alert and oriented. Airway Examination: normal oropharyngeal airway and neck mobility. Respiratory Examination: clear to auscultation. CV Examination: normal. Prophylactic Antibiotics: The patient does not require prophylactic antibiotics. Prior Anticoagulants: The patient has taken no previous anticoagulant or antiplatelet agents. ASA Grade Assessment: II - A patient with mild systemic disease. After reviewing the risks and benefits, the patient was deemed in satisfactory condition to undergo the procedure. The anesthesia plan was to use monitored anesthesia care (MAC). Immediately prior to administration of medications, the patient was re-assessed for adequacy to receive sedatives. The heart rate, respiratory rate, oxygen saturations, blood pressure, adequacy of pulmonary ventilation, and response to care were monitored throughout the procedure. The physical status of the patient was re-assessed after the procedure. The Endoscope was introduced through the mouth, and advanced to the second part of duodenum. The upper GI endoscopy was accomplished without difficulty. The patient tolerated the procedure well. Findings: A medium-sized hiatal hernia was present. The Z-line was regular and was found 35 cm from the incisors. Normal mucosa was found in the entire esophagus. Scattered moderate inflammation characterized by erythema, friability and granularity was found in the gastric antrum. Biopsies were taken with a cold forceps for Helicobacter pylori testing. Verification of patient identification for the specimen was done by the physician and nurse using the patient's name, date and medical record number. Estimated blood loss was minimal. A 10 mm healed ulcer was found in the gastric antrum. The scar tissue was healthy in appearance. Biopsies were taken with a cold forceps for histology. The duodenal bulb and second portion of the duodenum were normal. Biopsies for histology were taken with a cold forceps for evaluation of celiac disease. Impression: - Medium-sized hiatal hernia. - Z-line regular, 35 cm from the incisors. - Normal mucosa was found in the entire esophagus. - Gastritis. Biopsied. - Scar in the gastric antrum. Biopsied. - Normal duodenal bulb and second portion of the duodenum. Biopsied. Recommendation: - Patient has a contact number available for emergencies. The signs and symptoms of potential delayed complications were discussed with the patient. Return to normal activities tomorrow. Written discharge instructions were provided to the patient. - Resume previous diet. - Continue present medications. - Await pathology results. - Return to GI clinic in [facility] (address [address], [address], [place], [facility]) in 4 -- 6 weeks. Please call GI clinic @ [phone] for apppointment date and time. - Return to primary care physician. Vishal Avila MD Vishal Avila MD 09/24/2018 2:17:16 PM Electronically signed by Vishal Avila MD Number of Addenda: 0 Note Initiated On: 09/24/2018 12:16 PM Estimated Blood Loss: Estimated blood loss was minimal.
[2018-09-24 14:39] VITALS: BP 180/84
== END 2018-09-24 16:29 | disposition home or self-care (01) ==
LOC: M OPP 11:22
PROVIDERS: ATTEND Internal Medicine Gastroenterology
DX: K44.9 Diaphragmatic hernia without obstruction or gangrene (principal); K29.70 Gastritis, unspecified, without bleeding; K31.89 Other diseases of stomach and duodenum; R10.13 Epigastric pain; R13.10 Dysphagia, unspecified; G47.30 Sleep apnea, unspecified; R63.4 Abnormal weight loss; J44.9 Chronic obstructive pulmonary disease, unspecified; Z79.899 Other long term (current) drug therapy; Z87.891 Personal history of nicotine dependence; Z85.118 Personal history of other malignant neoplasm of bronchus and lung; Z85.47 Personal history of malignant neoplasm of testis

== ENCOUNTER → 2018-10-14 | Outpatient (CLI) | payer MEDICARE, OTHER ==
[~2018-10-14] MED LIST changes: +CETI10TA8 PO; +ESOM1CAP5 PO; +FLUT50SP33; -NS 1,000 ML IV ONE
[2018-10-14 17:49] LABS: ALBUMIN 2.7 GM/DL (3.2-5.2); BILIRUBIN,TOTAL 0.3 MG/DL (0.2-1.0); CALCIUM LEVEL 7.8 MG/DL (8.8-10.2); CREATININE FOR GFR 1.37 MG/DL (0.70-1.30); GLOMERULAR FILTRATION RATE 52.3 (>35); POTASSIUM SERUM 3.9 MEQ/L (3.5-5.1); TOTAL PROTEIN 6.5 GM/DL (6.4-8.2)
== END ==
LOC: M LAB 11:47
PROVIDERS: ATTEND Nurse Practitioner Family
DX: C91.10 Chronic lymphocytic leukemia of B-cell type not having achieved remission (principal)

== ENCOUNTER → 2018-10-16 | Outpatient (CLI) | payer MEDICARE, OTHER ==
[~2018-10-16] MED LIST changes: +GASTROGRAFIN SOLUTION 30ML (Q9963) As Ordered ONE; +ISOVUE-370 76% 100ML VIAL (Q9967) As Ordered ONE; +LEVO250T12 PO; +PROBCAP14 PO
--- NOTE | 2018-10-16 17:55 | REP ---
Clinical: Pain and weight loss. Technique: Axial contrast enhanced images from the thoracic inlet to the upper abdomen with coronal and sagittal re-formations using 100 ml Isovue 370 intravenous contrast material. Comparison: 02/12/2018. Findings: Right-sided pleuroparenchymal and postsurgical changes are again appreciated and remain relatively stable. Mild chronic COPD/emphysematous changes including scattered bullae, bronchiectasis and minimal scarring again noted. 8 mm noncalcified nodule in the right middle lobe (image 65) appears relatively stable. No acute consolidation, new nodule or mass lesion identified. No adenopathy. Mediastinum demonstrates atherosclerotic changes to the thoracic aorta and coronary arteries without aortic aneurysm/dissection, cardiomegaly or pericardial effusion. Surrounding musculoskeletal structures without focal osseous abnormality. Limited upper abdomen demonstrates stable 3 cm right renal cyst and atrophic appearance the left kidney. Normal bilateral adrenal glands noted. Impression: 1. Chronic stable right-sided postsurgical/pleuroparenchymal changes and diffuse mild COPD/emphysematous changes along with further chronic changes as described above. 2. Stable 8 mm noncalcified nodule in the periphery of the right middle lobe. 3. No acute mediastinal or pleuroparenchymal process appreciated. Electronically Signed by Sam Maier MD 10/16/2018 05:47 P
--- NOTE | 2018-10-16 17:59 | REP ---
Clinical: Abdominal pain and weight loss. Technique: Axial contrast enhanced images from the thoracic inlet to the upper abdomen using oral (per protocol) and 100 ml Isovue 370 intravenous contrast material with coronal and sagittal re-formations. Comparison: By 01/12/2018. Findings: Liver, spleen, pancreas, gallbladder, and bilateral adrenal glands are normal. Right kidney includes stable 3 cm posterior exophytic cyst. Left kidney is completely atrophic. Evaluation of the enteric system demonstrates moderate hiatal hernia along with few scattered colonic and sigmoid diverticula. No acute obstruction or inflammatory process identified. Pelvis demonstrates mildly prominent prostate gland measuring approximately 4 cm diameter having mass effect on the base of the bladder along with subtle bladder wall irregularity which may reflect chronic changes related to outlet obstruction. No ascites. No adenopathy. No free air. Atherosclerotic changes to the aorta without aneurysm or dissection. Osseous structures demonstrate age-related osteopenia and degenerative change without significant focal osseous abnormality identified. Impression: 1. Stable right renal cyst and atrophic appearance the left kidney. 2. Prominent prostate gland with significant mass effect on the base of the bladder along the bladder changes that may reflect chronic outlet obstruction. Urology consultation may be warranted. 3. Few scattered colonic diverticula. 4. Moderate hiatal hernia. 5. No further acute abdominopelvic pathology appreciated. Electronically Signed by Sam Maier MD 10/16/2018 05:51 P
== END ==
LOC: M RAD 14:10
PROVIDERS: ATTEND Internal Medicine Medical Oncology
DX: R91.1 Solitary pulmonary nodule (principal); J44.9 Chronic obstructive pulmonary disease, unspecified; N28.1 Cyst of kidney, acquired; N40.1 Benign prostatic hyperplasia with lower urinary tract symptoms
CPT/HCPCS: 71260; 74177; Q9963; Q9967

== ENCOUNTER 2018-10-17 16:47 | Inpatient (IN) | payer MEDICARE, OTHER ==
[~2018-10-17] VITALS: Ht 175.3 cm; Wt 64.5 kg
[~2018-10-17 16:47] MED LIST changes: -CETI10TA8 PO; -ESOM1CAP5 PO; -FLUT50SP33; -GASTROGRAFIN SOLUTION 30ML (Q9963) As Ordered ONE; -ISOVUE-370 76% 100ML VIAL (Q9967) As Ordered ONE; -LEVO250T12 PO; -PROBCAP14 PO
[2018-10-17] MEDS ORDERED: MOM 30ML SUSPENSION UDC PO PRN (19:15)
[2018-10-17 20:36] VITALS: BP 148/78
[2018-10-17] MEDS ORDERED: DOCUSATE SODIUM 100 MG CAP PO SCH (21:00)
[2018-10-17] MEDS ORDERED: NEXI40CA PO (21:20)
[2018-10-17] MEDS ORDERED: FLUT50SP33 (21:20)
[2018-10-17] MEDS ORDERED: CETI10TA8 PO (21:21)
[2018-10-17] MEDS ORDERED: ESOM1CAP5 PO (21:21)
[2018-10-17] MEDS ORDERED: ONDANSETRON 4MG/2ML VIAL (J2405) IV PRN (21:45)
[2018-10-17] MEDS ORDERED: ALBUTEROL SULFATE 2.5 MG/0.5 ML INH NEB SOLN NEB PRN (21:45)
[2018-10-17] MEDS: TAMSULOSIN 0.4 MG CAP PO SCH (21:57)
[2018-10-17] MEDS: HEPARIN SOD (PORCINE) 5000 UNITS/ML VIAL SC SCH (21:58)
[2018-10-17] MEDS ORDERED: ACETAMINOPHEN 500 MG TAB PO PRN (22:00)
[2018-10-17] MEDS: METOPROLOL TART 50 MG TAB PO SCH (22:02)
[2018-10-17 22:03] LABS: BASO # 0.1 10^3/uL (0.0-0.2); BASO % 0.4 % (0.0-1.0); EOS # 0.2 10^3/uL (0.0-0.50); HEMATOCRIT 30.9 % (42.0-52.0); HEMOGLOBIN 9.9 g/dl (13.5-17.5); LYMPH # 1.3 10^3/uL (1.5-4.5); LYMPH % 11.2 % (24.0-44.0); MEAN CORPUSCULAR HEMOGLOBIN 30.3 pg (27.0-33.0); MEAN CORPUSCULAR VOLUME 94.5 fl (80.0-96.0); MONO # 1.1 10^3/uL (0.0-0.8); MONO % 8.8 % (0.0-5.0); NEUTROPHILS # 9.3 10^3/uL (1.8-7.7); NEUTROPHILS % 77.2 % (36.0-66.0); PLATELET COUNT, AUTOMATED 172 10^3/uL (150-450); RED BLOOD COUNT 3.27 10^6/uL (4.30-6.10)
[2018-10-17 22:25] LABS: ALBUMIN 2.4 GM/DL (3.2-5.2); BILIRUBIN,TOTAL 0.4 MG/DL (0.2-1.0); CALCIUM LEVEL 7.3 MG/DL (8.8-10.2); CREATININE FOR GFR 1.44 MG/DL (0.70-1.30); GLOMERULAR FILTRATION RATE 49.4 (>35); POTASSIUM SERUM 4.4 MEQ/L (3.5-5.1); TOTAL PROTEIN 5.7 GM/DL (6.4-8.2)
--- NOTE | 2018-10-18 01:58 | HPEPDOC ---
General Date of Admission October 17, 2018 at 20:36 Date of Service: October 17, 2018 Chief Complaint The patient is a 88-year-old male admitted with a reason for visit of Prostatitis. Source: Patient, Family, Old records Exam Limitations: No limitations Severity: Moderate Associated Symptoms: Chest Pain, Nausea, Vomiting, Shortness of breath, Weakness History of Present Illness 88 year old male with PMH of multiple cancers including lung, testicular bother treated and CLL being monitored , BPH, CAD with stents, HLD, Hiatal hernia, diverticulosis, COPD, CKD with renal artery stents, hypertension presented to [facility] ED ED with complains of abdominal pain, nausea, diarrhea, chest pain, SOB and weakness. Here he had a T scan which showed prostatic enlargement. His WBC was elevated to 20K. It was felt that he had prostatitis and was transferred here after giving a dose of Zosyn. On my interview paint complained of lower abdominal pain more in the hypogastrium and left illiac fossa which was constant , dull aching without any radiation. It was associated with intermittent nausea and vomiting and intermittent diarrhea. This pain has been going on for about 6 weeks. He denied any chest pain or SOB to me. He also complained of frequency of urination which became really bad today. e was going several times in the morning with only small amounts of output each time. He had a bladder scan here which showed 547 l. He could void only 25 ml . Straight cath produced 675 ml of urine. i feel most of his abdominal symptoms are related to acute on chronic urinary retention due to BPH. I am not sure if he has an associated parostitis or UTI or not. His UA is benign but he has already received antibiotics in [place]. Home Medications Scheduled Allopurinol (Zyloprim) 300 Mg Tab, 150 MG PO DAILY, (Reported) Cetirizine HCl (Cetirizine HCl) 10 Mg Tablet, 10 MG PO DAILY, (Reported) Esomeprazole Magnesium (Esomeprazole Magnesium) 40 Mg Capsule.dr, 40 MG PO DAILY, (Reported) Finasteride (Finasteride) 5 Mg Tab, 5 MG PO DAILY, (Reported) Levothyroxine Sodium (Synthroid) 112 Mcg Tab, 112 MCG PO DAILY, (Reported) Metoprolol Tartrate (Metoprolol Tartrate) 50 Mg Tab, 25 MG PO BID, (Reported) Simvastatin (Simvastatin) 10 Mg Tab, 10 MG PO DAILY, (Reported) Tamsulosin HCl (Flomax) 0.4 Mg Cap, 0.4 MG PO QHS, (Reported) Scheduled PRN Albuterol Sulf (Albuterol Sulfate) 2.5 Mg/3 Ml Nebu, 2.5 MG INH Q4H PRN for SHORTNESS OF BREATH, (Reported) Albuterol Sulfate (Ventolin Hfa) 108 Mcg/Act Aer, 2 PUFFS INH Q4H PRN for SHORTNESS OF BREATH, (Reported) Fluticasone Propionate (Fluticasone Propionate) 15.8 Ml [place].susp, 2 SPRAYS NA DAILY PRN for NASAL CONGESTION, (Reported) Nitroglycerin (Nitrostat) 0.4 Mg Subl, 0.4 MG SL NITRO PRN for CHEST PAIN, (Reported) Allergies Coded Allergies: ascorbic acid (Verified Allergy, Unknown, VIT C, 09/24/18) iron (Verified Allergy, Unknown, 09/24/18) Past Medical History Medical History multiple cancers including Stage 1A Adenocarcinoma of lung treated , 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 Stern , Hypothyroid, gout. Surgical History right upper lobectomy in 2013 right orchidectomy in cardiac stents Bilateral renal artery stents inguinal hernia repair carpal tunnel release breast biopsy appendectomy Family History Both parents . No family history of coronary artery disease. One brother from kidney problem. Social History * Smoker: former Smoker Alcohol: Denies Drugs: denies Remote tobacco use as well as alcohol drinking. Quit many years. No drug abuse. A-FIB/CHADSVASC A-FIB History Current/History of A-Fib/PAF?: No Review of Systems Constitutional: Reports: Weakness, Fatigue; Denies: Chills, Fever, Night Sweats Eyes: Denies: Pain, Vision change ENT: Denies: Head Aches, Ear Pain, Dysphagia Skin: Denies: Rash, Lesions, Breakdown Pulmonary: Denies: Dyspnea, Cough Cardiovascular: Denies: Chest Pain, Palpitations, Orthopnea Gastrointestinal: Reports: Nausea, Vomiting, Abdominal Pain, Diarrhea Genitourinary: Reports: Dysuria, Frequency Hematologic: Denies: Bruising, Bleeding Excessively Musculoskeletal: Denies: Neck Pain, Back Pain Neurological: Denies: Weakness, Numbness, Change in speech, Confusion Psych: Reports: Mood Normal; Denies: Depression, Memory Issues Physical Examination General Exam: Positive: Alert, Cooperative, Mild Distress Eye Exam: Positive: PERRLA, Conjunctiva & lids normal, EOMI; Negative: Sclera icteric ENT Exam: Positive: Atraumatic, Mucous membr. moist/pink, Pharynx Normal Neck Exam: Positive: Supple; Negative: JVD, thyromegaly Chest Exam: Positive: Clear to auscultation, Diminished Heart Exam: Positive: Rate Normal, Regular Rhythm, Normal S1, Normal S2; Negative: Murmurs, Rubs Abdomen Exam: Positive: Normal bowel sounds, Soft, Tenderness (in the hypogastrium), Other (dull to percussion in kassi ypogastrium) Extremity Exam: Negative: Clubbing, Cyanosis, Edema Skin Exam: Positive: Nl turgor and temperature; Negative: Breakdown, Lesion Neuro Exam: Positive: Normal Gait, Normal Speech, Cranial Nerves 3-12 NL, Reflexes 2+ Psych Exam: Positive: Mental status NL, Mood NL, Oriented x 3 Vital Signs Vital Signs Date Time Temp Pulse Resp B/P (MAP) Pulse Ox O2 Delivery O2 Flow Rate FiO2 10/17/18 22:02 64 148/78 10/17/18 20:36 97.9 16 95 Laboratory Data Labs 24H Laboratory Tests 2 10/17/18 20:55: Lactic Acid Level 1.1 10/17/18 21:48: Immature Granulocyte % (Auto) 0.4, White Blood Count 12.0H, Red Blood Count 3.27L, Hemoglobin 9.9L, Hematocrit 30.9L, Mean Corpuscular Volume 94.5, Mean Co rpuscular Hemoglobin 30.3, Mean Corpuscular Hemoglobin Concent 32.0, Red Cell Distribution Width 16.2H, Platelet Count 172, Neutrophils (%) (Auto) 77.2H, Lymphocytes (%) (Auto) 11.2L, Monocytes (%) (Auto) 8.8H, Eosinophils (%) (Auto) 2.0, Basophils (%) (Auto) 0.4, Neutrophils # (Auto) 9.3H, Lymphocytes # (Auto) 1.3L, Monocytes # (Auto) 1.1H, Eosinophils # (Auto) 0.2, Basophils # (Auto) 0.1, Nucleated Red Blood Cells % (auto) 0.0, Anion Gap 6L, Glomerular Filtration Rate 49.4, Blood Urea Nitrogen 17, Creatinine 1.44H, Sodium Level 139, Potassium Level 4.4, Chloride Level 107, Carbon Dioxide Level 26, Calcium Level 7.3L, Aspartate Amino Transf (AST/SGOT) 13, Alanine Aminotransferase (ALT/SGPT) 21, Alkaline Phosphatase 91, Total Bilirubin 0.4, Total Protein 5.7L, Albumin 2.4L, Albumin/Globulin Ratio 0.73L 10/17/18 22:24: Urine Color YELLOW, Urine Appearance CLEAR, Urine pH 5.0, Urine Specific [place] 1.025, Urine Protein 1+H, Urine Glucose (UA) NEGATIVE, Urine Ketones NEGATIVE, Urine Blood NEGATIVE, Urine Nitrite NEGATIVE, Urine Bilirubin NEGATIVE, Urine Urobilinogen 0.2, Urine Leukocyte Esterase NEGATIVE, Urine WBC (Auto) 5H, Urine RBC (Auto) 1, Urine Hyaline Casts (Auto) 0, Urine Bacteria (Auto) NEGATIVE, Urine Squamous Epithelial Cells 0, Urine Sperm (Auto) CBC/BMP Laboratory Tests 10/17/18 21:48 Red Blood Count 3.27 L, Mean Corpuscular Volume 94.5, Mean Corpuscular Hemoglobin 30.3, Mean Corpuscular Hemoglobin Concent 32.0, Red Cell Distribution Width 16.2 H, Neutrophils (%) (Auto) 77.2 H, Lymphocytes (%) (Auto) 11.2 L, Monocytes (%) (Auto) 8.8 H, Eosinophils (%) (Auto) 2.0, Basophils (%) (Auto) 0.4, Neutrophils # (Auto) 9.3 H, Lymphocytes # (Auto) 1.3 L, Monocytes # (Auto) 1.1 H, Eosinophils # (Auto) 0.2, Basophils # (Auto) 0.1, Calcium Level 7.3 L, Aspartate Amino Transf (AST/SGOT) 13, Alanine Aminotransferase (ALT/SGPT) 21, Alkaline Phosphatase 91, Total Bilirubin 0.4, Total Protein 5.7 L, Albumin 2.4 L Microbiology Microbiology 10/17/18 Blood Culture, Received Pending 10/17/18 Blood Culture, Received Pending Assessment/Plan 88 year old male with PMH of multiple cancers including lung, testicular bother treated and CLL being monitored , BPH, CAD with stents, HLD, Hiatal hernia, diverticulosis, COPD, CKD with renal artery stents, hypertension presented to [place] ED with complains of abdominal pain, nausea, diarrhea, chest pain, SOB and weakness. Here he had a T scan which showed prostatic enlargement. His WBC was elevated to 20K. It was felt that he had prostatitis and was transferred here after giving a dose of Zosyn. On my interview paint complained of lower abdominal pain more in the hypogastrium and left illiac fossa which was constant , dull aching without any radiation. It was associated with intermittent nausea and vomiting and intermittent diarrhea. This pain has been going on for about 6 weeks. He denied any chest pain or SOB to me. He also complained of frequency of urination which became really bad today. e was going several times in the morning with only small amounts of output each time. He had a bladder scan here which showed 547 l. He could void only 25 ml . Straight cath produced 675 ml of urine. i feel most of his abdominal symptoms are related to acute on chronic urinary retention due to BPH. I am not sure if he has an associated parostitis or UTI or not. His UA is benign but he has already received antibiotics in [place]. Acute on chronic urinary retention due to BPH bladder scan prn and leonardo cath if again has retention continue flomax and finasteride. Prostatitis I am unsure if he actually has this or not. His UA has 5 cells here and WBC is 12k His WBC was 20K in other hospital but that could also be due to pain and discomfort form the acute retention will give levofloxacin IV has e has been having nausea and vomiting. blood culture has been ordered. Follow up Urine culture from other hospital Hiatal hernia, GERD, Healed gastric antral ulcer and gastritis in EGD continue pantoprazole will also give sucralfate Hypothyroid continue Synthroid Hyperuricemia continue allopurinol hyperlipidemia continue statin Chronic anemia due to chronic disease and iron deficiency get IV iron intermittently. CANCERS h/o lung ca, h/o testicular cancer treated CLL followed by oncology Bladder mass followed by urology COPD continue albuterol prn. CAD with h/o stents no issues at present CKD stage 3 will bilateral renal artery stents no issues at present Hypertension BP well controlled. Protein calorie malnutrition BMI of 19.2 with temporal wasting and albumin of 2.4 DVT prophylaxis has been ordered Plan / VTE VTE Prophylaxis Ordered?: Yes JOSIAH KUMAR MD October 18, 2018 01:38
[2018-10-18] MEDS: LevoFLOXacin IV 250 MG in APPROPRIATE DILUENT 1 EA IV SCH (02:49)
[2018-10-18] MEDS: LEVOTHYROXINE 112MCG TABLET (0.112MG) PO SCH (05:57)
[2018-10-18 06:00] VITALS: BP 129/62
[2018-10-18 08:03] LABS: BASO # 0.1 10^3/uL (0.0-0.2); BASO % 0.7 % (0.0-1.0); EOS # 0.3 10^3/uL (0.0-0.50); EOS % 3.6 % (0.0-3.0); HEMATOCRIT 27.8 % (42.0-52.0); HEMOGLOBIN 8.8 g/dl (13.5-17.5); LYMPH # 1.2 10^3/uL (1.5-4.5); LYMPH % 13.6 % (24.0-44.0); MEAN CORPUSCULAR HEMOGLOBIN 29.1 pg (27.0-33.0); MEAN CORPUSCULAR HGB CONC 31.7 g/dl (32.0-36.5); MEAN CORPUSCULAR VOLUME 92.1 fl (80.0-96.0); MONO # 0.7 10^3/uL (0.0-0.8); MONO % 8.3 % (0.0-5.0); NEUTROPHILS # 6.2 10^3/uL (1.8-7.7); PLATELET COUNT, AUTOMATED 145 10^3/uL (150-450); RED BLOOD COUNT 3.02 10^6/uL (4.30-6.10); WHITE BLOOD COUNT 8.5 10^3/uL (4.0-10.0)
[2018-10-18] MEDS: ALLOPURINOL 300 MG TAB PO SCH (08:37)
[2018-10-18] MEDS: SIMVASTATIN 10 MG TAB PO SCH (08:37)
[2018-10-18] MEDS: FINASTERIDE 5 MG TAB PO SCH (08:37)
[2018-10-18] MEDS: HEPARIN SOD (PORCINE) 5000 UNITS/ML VIAL SC SCH ×2 (08:37→22:02)
[2018-10-18] MEDS: PANTOPRAZOLE 40MG INJ (PROTONIX) (C9113) IV SCH (08:37)
[2018-10-18] MEDS: METOPROLOL TART 50 MG TAB PO SCH ×2 (08:37→22:02)
[2018-10-18 09:50] LABS: ALBUMIN 2.2 GM/DL (3.2-5.2); BILIRUBIN,TOTAL 0.3 MG/DL (0.2-1.0); CALCIUM LEVEL 7.7 MG/DL (8.8-10.2); CREATININE FOR GFR 1.35 MG/DL (0.70-1.30); GLOMERULAR FILTRATION RATE 53.2 (>35); POTASSIUM SERUM 4.1 MEQ/L (3.5-5.1); TOTAL PROTEIN 5.6 GM/DL (6.4-8.2)
[2018-10-18 09:51] LABS: MAGNESIUM LEVEL 0.9 MG/DL (1.8-2.4)
[2018-10-18] MEDS: MAG SULF 1GM/100ML (MAG RUN) 1 GM in APPROPRIATE DILUENT 1 EA IV SCH ×3 (11:07→13:25)
[2018-10-18 14:00] VITALS: BP 140/69
--- NOTE | 2018-10-18 15:27 | IPNPDOC ---
Text Note Date of Service The patient was seen on 10/18/18. NOTE Subjective: Patient is an 88-year-old male with a PMHx COPD, HTN, DLP, CKD3 w/ Renal artery stents, Lung CA s/p resection, Testicular CA s/p orchiectomy, CLL (Following oncology), BPH, CAD s/p stent, Hiatal hernia, Diverticulosis, who presented to [facility] completed, abdominal pain, nausea and diarrhea. Patient received imaging yesterday CT scan which showed prostate enlargement and a WBC of 20. Patient was suspected of having prostatitis and was transferred to [facility] for further evaluation and treatment. Patient was seen and examined at the bedside. Currently patient reports that his abdominal pain is doing significantly better. He denies nausea or vomiting. Has not yet had a bowel movement. Patient denies chest pain, shortness of breath, palpitations. Patient is having some difficulty with urination, overnight he required straight catheterization. Currently patient is attempting to urinate on his own. I have advised him that if he is unable to urinate, a Ahumada catheter will be placed. Objective: Vitals (See below) General: Lying in bed, no acute distress, comfortable, AAOx3 HEENT: NC, AT CVS: RRR, +S1S2 Lungs: Fair air entry b/l, -w/r/r Abdomen: Soft, nondistended, without tenderness Extremities: No edema, - Calf tenderness Assessment and plan: Acute on Chronic urinary retention - possibly 2/2 enlarge prostate - 2/2 BPH, possibly 2/2 prostatitis - Currently patient's kidney function appears to be better than baseline - Patient is required straight catheterizations while hospitalized - Patient will attempt to urinate on his own today - Will continue with bladder scans to evaluate urinary retention - Will insert indwelling Ahumada catheter if persistently retaining - c/w Tamsulosin and Finasteride Suspected Prostatitis - Currently, patient is afebrile and hemodynamically stable - Urine analysis did not reveal any signs of infection - Blood cultures 10/17: Pending - Will review lab work completed a [facility] - s/p Zosyn at [place] - c/w Levofloxacin (Antibiotic day #2) Hypothyroid - c/w Levothyroxine Hyperuricemia - c/w Allopurinol Chronic anemia 2/2 chronic disease and iron deficiency - Patient receives outpatient infusions of iron Malignancy - Patient has extensive history of lung cancer status post resection, testicular cancer status post orchiectomy - Current history of CLL following with oncology - She also has a bladder mass and is following urology COPD - no evidence of exacerbation - c/w inhaled therapy as ordered DLP - c/w Simvastatin CKD stage 3 - Patient has had bilateral renal artery stents placement - Creatinine baseline of 1.4-1.6 - Creatinine appears to be better than baseline Hypertension - BP appears well controlled - c/w Metoprolol Protein calorie malnutrition - BMI of 19.2 with temporal wasting and albumin of 2.4 - Will start Ensure supplementation Hiatal hernia / GERD / Healed gastric antral ulcer / Gastritis - Found on EGD - c/w Protonix DVT prophylaxis - c/w Heparin VS,Fishbone, I+O VS, Fishbone, I+O Laboratory Tests 10/17/18 21:48 Red Blood Count 3.27 L, Mean Corpuscular Volume 94.5, Mean Corpuscular Hemoglobi n 30.3, Mean Corpuscular Hemoglobin Concent 32.0, Red Cell Distribution Width 16.2 H, Neutrophils (%) (Auto) 77.2 H, Lymphocytes (%) (Auto) 11.2 L, Monocytes (%) (Auto) 8.8 H, Eosinophils (%) (Auto) 2.0, Basophils (%) (Auto) 0.4, Neutrophils # (Auto) 9.3 H, Lymphocytes # (Auto) 1.3 L, Monocytes # (Auto) 1.1 H, Eosinophils # (Auto) 0.2, Basophils # (Auto) 0.1, Calcium Level 7.3 L, Aspartate Amino Transf (AST/SGOT) 13, Alanine Aminotransferase (ALT/SGPT) 21, Alkaline Phosphatase 91, Total Bilirubin 0.4, Total Protein 5.7 L, Albumin 2.4 L 10/18/18 07:47 Red Blood Count 3.02 L, Mean Corpuscular Volume 92.1, Mean Corpuscular Hemoglobin 29.1, Mean Corpuscular Hemoglobin Concent 31.7 L, Red Cell Distribution Width 16.1 H, Neutrophils (%) (Auto) 73.0 H, Lymphocytes (%) (Auto) 13.6 L, Monocytes (%) (Auto) 8.3 H, Eosinophils (%) (Auto) 3.6 H, Basophils (%) (Auto) 0.7, Neutrophils # (Auto) 6.2, Lymphocytes # (Auto) 1.2 L, Monocytes # (Auto) 0.7, Eosinophils # (Auto) 0.3, Basophils # (Auto) 0.1, Calcium Level 7.7 L, Aspartate Amino Transf (AST/SGOT) 16, Alanine Aminotransferase (ALT/SGPT) 17, Alkaline Phosphatase 80, Total Bilirubin 0.3, Total Protein 5.6 L, Albumin 2.2 L Vital Signs Date Time Temp Pulse Resp B/P (MAP) Pulse Ox O2 Delivery O2 Flow Rate FiO2 10/18/18 14:00 97.8 56 17 140/69 (92) 98 I&O- Last 24 Hours up to 6 AM 10/18/18 06:00 Intake Total 350 ml Output Total 700 ml Balance -350 ml YURIY FORD MD October 18, 2018 15:27
[2018-10-18 22:00] VITALS: BP 168/74
[2018-10-18] MEDS: TAMSULOSIN 0.4 MG CAP PO SCH (22:01)
[2018-10-19] MEDS: LevoFLOXacin IV 250 MG in APPROPRIATE DILUENT 1 EA IV SCH (01:04)
[2018-10-19 06:00] VITALS: BP 163/85
[2018-10-19] MEDS: LEVOTHYROXINE 112MCG TABLET (0.112MG) PO SCH (06:03)
[2018-10-19 06:35] LABS: BASO % 0.5 % (0.0-1.0); EOS # 0.3 10^3/uL (0.0-0.50); EOS % 3.9 % (0.0-3.0); HEMATOCRIT 28.6 % (42.0-52.0); HEMOGLOBIN 9.3 g/dl (13.5-17.5); MEAN CORPUSCULAR HEMOGLOBIN 29.7 pg (27.0-33.0); MEAN CORPUSCULAR HGB CONC 32.5 g/dl (32.0-36.5); MEAN CORPUSCULAR VOLUME 91.4 fl (80.0-96.0); MONO # 0.7 10^3/uL (0.0-0.8); MONO % 8.9 % (0.0-5.0); NEUTROPHILS # 6.2 10^3/uL (1.8-7.7); NEUTROPHILS % 74.1 % (36.0-66.0); PLATELET COUNT, AUTOMATED 163 10^3/uL (150-450); RED BLOOD COUNT 3.13 10^6/uL (4.30-6.10); WHITE BLOOD COUNT 8.3 10^3/uL (4.0-10.0)
[2018-10-19 06:57] LABS: CALCIUM LEVEL 7.5 MG/DL (8.8-10.2); CREATININE FOR GFR 1.26 MG/DL (0.70-1.30); GLOMERULAR FILTRATION RATE 57.6 (>35); MAGNESIUM LEVEL 1.8 MG/DL (1.8-2.4); POTASSIUM SERUM 3.8 MEQ/L (3.5-5.1)
[2018-10-19] MEDS: PANTOPRAZOLE 40MG INJ (PROTONIX) (C9113) IV SCH (09:44)
[2018-10-19] MEDS: HEPARIN SOD (PORCINE) 5000 UNITS/ML VIAL SC SCH (09:44)
[2018-10-19] MEDS: FINASTERIDE 5 MG TAB PO SCH (09:44)
[2018-10-19 09:45] VITALS: BP 163/85
[2018-10-19] MEDS: ALLOPURINOL 300 MG TAB PO SCH (09:45)
[2018-10-19] MEDS: SIMVASTATIN 10 MG TAB PO SCH (09:45)
[2018-10-19] MEDS: METOPROLOL TART 50 MG TAB PO SCH (09:45)
[2018-10-19 14:00] VITALS: BP 154/72
[2018-10-19] MEDS ORDERED: LEVO250T12 PO ×2 (14:42→15:19)
[2018-10-19] MEDS ORDERED: PROBCAP14 PO ×2 (14:44→15:19)
--- NOTE | 2018-10-19 15:26 | DS.PDOC ---
Discharge Summary General Date of Admission October 17, 2018 at 20:36 Date of Discharge 10/19/2018 Discharge Summary PROCEDURES PERFORMED DURING STAY: [None]. ADMITTING DIAGNOSES / DISCHARGE DIAGNOSES: Acute on Chronic urinary retention - possibly 2/2 enlarge prostate - 2/2 BPH, possibly 2/2 prostatitis Suspected Prostatitis Hypothyroid Hyperuricemia Chronic anemia 2/2 chronic disease and iron deficiency Malignancy COPD DLP CKD stage 3 Hypertension Protein calorie malnutrition Hiatal hernia / GERD / Healed gastric antral ulcer / Gastritis DVT prophylaxis COMPLICATIONS/CHIEF COMPLAINT: Possible urinary retention HISTORY OF PRESENT ILLNESS: Patient is an 88-year-old male with a PMHx COPD, HTN, DLP, CKD3 w/ Renal artery stents, Lung CA s/p resection, Testicular CA s/p orchiectomy, CLL (Following oncology), BPH, CAD s/p stent, Hiatal hernia, Diverticulosis, who presented to [facility] completed, abdominal pain, nausea and diarrhea. Patient received imaging yesterday CT scan which showed prostate enlargement and a WBC of 20. Patient was suspected of having prostatitis and was transferred to [facility] for further evaluation and treatment. HOSPITAL COURSE: Acute on Chronic urinary retention - possibly 2/2 enlarge prostate - 2/2 BPH, possibly 2/2 prostatitis - Currently patient's kidney function appears to be better than baseline - Patient had required straight catheterizations while hospitalized; - Patient will attempt to urinate on his own today - Will continue with bladder scans to evaluate urinary retention - Patient has not required a urinary catheter - c/w Tamsulosin and Finasteride Fevers - likely 22/2 suspected Prostatitis - ROS is negative for any other source of infection - Currently, patient is afebrile and hemodynamically stable - Urine analysis did not reveal any signs of infection - Blood cultures 10/17: Negative at 24 hours - GI Panel 10/19: Negative - Will review lab work completed a [facility] - Discussed with [place] ER provider; Urinalysis was negative / Urine culture negative / CXR completed negative - s/p Zosyn at [place]; c/w Levofloxacin (Antibiotic day #3) - will complete antibiotic course as an outpatient - Will have outpatient follow up with primary care to evaluate need for continue antibiotics Hypothyroid - c/w Levothyroxine Hyperuricemia - c/w Allopurinol Chronic anemia 2/2 chronic disease and iron deficiency - Patient receives outpatient infusions of iron Malignancy - Patient has extensive history of lung cancer status post resection, testicular cancer status post orchiectomy - Current history of CLL following with oncology - She also has a bladder mass and is following urology COPD - no evidence of exacerbation - c/w inhaled therapy as ordered DLP - c/w Simvastatin CKD stage 3 - Patient has had bilateral renal artery stents placement - Creatinine baseline of 1.4-1.6 - Creatinine appears to be better than baseline Hypertension - BP appears well controlled - c/w Metoprolol Protein calorie malnutrition - BMI of 19.2 with temporal wasting and albumin of 2.4 - c/w Ensure supplementation Hiatal hernia / GERD / Healed gastric antral ulcer / Gastritis - Found on EGD - c/w Protonix DVT prophylaxis - c/w Heparin DISCHARGE MEDICATIONS: Please see below. ALLERGIES: Please see below. PHYSICAL EXAMINATION ON DISCHARGE: Vitals (See below) General: Lying in bed, no acute distress, comfortable, AAOx3 HEENT: NC, AT CVS: RRR, +S1S2 Lungs: Fair air entry b/l, no auscultated wheezing / rhonchi / rales Abdomen: Soft, nondistended, without tenderness Extremities: No edema, - Calf tenderness LABORATORY DATA: Please see below. ACTIVITY: [As tolerated]. DISCHARGE PLAN: Follow up with Dr. Josefa Mesa within 7 days Remain complaint with treatment plan and medications Return to the ER if you experience any problems DISPOSITION: Home DISCHARGE CONDITION: [Stable]. TIME SPENT ON DISCHARGE: 36 minutes Vital Signs/I&Os Vital Signs Date Time Temp Pulse Resp B/P (MAP) Pulse Ox O2 Delivery O2 Flow Rate FiO2 10/19/18 09:45 63 163/85 10/19/18 06:00 99.0 18 98 I&O- Last 24 Hours up to 6 AM 10/19/18 06:00 Intake Total 1460 ml Output Total 220 ml Balance 1240 ml Laboratory Data Labs 24H Laboratory Tests 2 10/19/18 05:33: Immature Granulocyte % (Auto) 0.6, White Blood Count 8.3, Red Blood Count 3.13L, Hemoglobin 9.3L, Hematocrit 28.6L, Mean Corpuscular Volume 91.4, Mean Corpuscular Hemoglobin 29.7, Mean Corpuscular Hemoglobin Concent 32.5, Red Cell Distribution Width 16.0H, Platelet Count 163, Neutrophils (%) (Auto) 74.1H, Lymphocytes (%) (Auto) 12.0L, Monocytes (%) (Auto) 8.9H, Eosinophils (%) (Auto) 3.9H, Basophils (%) (Auto) 0.5, Neutrophils # (Auto) 6.2, Lymphocytes # (Auto) 1.0L, Monocytes # (Auto) 0.7, Eosinophils # (Auto) 0.3, Basophils # (Auto) 0.0, Nucleated Red Blood Cells % (auto) 0.0, Anion Gap 5L, Glomerular Filtration Rate 57.6, Blood Urea Nitrogen 18, Creatinine 1.26, Sodium Level 138, Potassium Level 3.8, Chloride Level 107, Carbon Dioxide Level 26, Calcium Level 7.5L, Magnesium Level 1.8 CBC/BMP Laboratory Tests 10/19/18 05:33 Red Blood Count 3.13 L, Mean Corpuscular Volume 91.4, Mean Corpuscular Hemoglobin 29.7, Mean Corpuscular Hemoglobin Concent 32.5, Red Cell Distribution Width 16.0 H, Neutrophils (%) (Auto) 74.1 H, Lymphocytes (%) (Auto) 12.0 L, Monocytes (%) (Auto) 8.9 H, Eosinophils (%) (Auto) 3.9 H, Basophils (%) (Auto) 0.5, Neutrophils # (Auto) 6.2, Lymphocytes # (Auto) 1.0 L, Monocytes # (Auto) 0.7, Eosinophils # (Auto) 0.3, Basophils # (Auto) 0.0, Calcium Level 7.5 L Microbiology Microbiology 10/17/18 Blood Culture - Preliminary, Resulted No growth after 24 hours . All specim... 10/17/18 Blood Culture - Preliminary, Resulted No growth after 24 hours . All specim... 10/19/18 Gastrointestinal Tract Panel (PCR) - Final, Complete Discharge Medications Scheduled Allopurinol (Zyloprim) 300 Mg Tab, 150 MG PO DAILY, (Reported) Cetirizine HCl (Cetirizine HCl) 10 Mg Tablet, 10 MG PO DAILY, (Reported) Esomeprazole Magnesium (Esomeprazole Magnesium) 40 Mg Capsule.dr, 40 MG PO DAILY, (Reported) Finasteride (Finasteride) 5 Mg Tab, 5 MG PO DAILY, (Reported) Lactobacillus Acidophilus (Probiotic) 1 Each Capsule, 1 CAP PO TID Levofloxacin (Levofloxacin) 250 Mg Tablet, 1 TAB PO DAILY Levothyroxine Sodium (Synthroid) 112 Mcg Tab, 112 MCG PO DAILY, (Reported) Metoprolol Tartrate (Metoprolol Tartrate) 50 Mg Tab, 25 MG PO BID, (Reported) Simvastatin (Simvastatin) 10 Mg Tab, 10 MG PO DAILY, (Reported) Tamsulosin HCl (Flomax) 0.4 Mg Cap, 0.4 MG PO QHS, (Reported) Scheduled PRN Albuterol Sulf (Albuterol Sulfate) 2.5 Mg/3 Ml Nebu, 2.5 MG INH Q4H PRN for SHORTNESS OF BREATH, (Reported) Albuterol Sulfate (Ventolin Hfa) 108 Mcg/Act Aer, 2 PUFFS INH Q4H PRN for SHORTNESS OF BREATH, (Reported) Fluticasone Propionate (Fluticasone Propionate) 15.8 Ml [place].susp, 2 SPRAYS NA DAILY PRN for NASAL CONGESTION, (Reported) Nitroglycerin (Nitrostat) 0.4 Mg Subl, 0.4 MG SL NITRO PRN for CHEST PAIN, (Re ported) Allergies Coded Allergies: ascorbic acid (Verified Allergy, Unknown, VIT C, 09/24/18) iron (Verified Allergy, Unknown, 09/24/18) YURIY FORD MD October 19, 2018 15:26
== END 2018-10-19 17:45 | disposition home or self-care (01) | DRG 728 ==
LOC: M MSPAV 20:36
PROVIDERS: ADMIT Student in an Organized Health Care Education/Training Program; ATTEND Internal Medicine
DX: N41.0 Acute prostatitis (principal); C91.90 Lymphoid leukemia, unspecified not having achieved remission; E46 Unspecified protein-calorie malnutrition; N40.1 Benign prostatic hyperplasia with lower urinary tract symptoms; R33.9 Retention of urine, unspecified; I25.10 Atherosclerotic heart disease of native coronary artery without angina pectoris; E78.5 Hyperlipidemia, unspecified; K44.9 Diaphragmatic hernia without obstruction or gangrene; E03.9 Hypothyroidism, unspecified; M10.9 Gout, unspecified; D50.9 Iron deficiency anemia, unspecified; K57.90 Diverticulosis of intestine, part unspecified, without perforation or abscess without bleeding; J44.9 Chronic obstructive pulmonary disease, unspecified; N18.3 Chronic kidney disease, stage 3 (moderate); I12.9 Hypertensive chronic kidney disease with stage 1 through stage 4 chronic kidney disease, or unspecified chronic kidney disease; Z79.899 Other long term (current) drug therapy; Z88.8 Allergy status to other drugs, medicaments and biological substances; Z85.49 Personal history of malignant neoplasm of other male genital organs; Z85.118 Personal history of other malignant neoplasm of bronchus and lung; Z95.5 Presence of coronary angioplasty implant and graft; Z90.2 Acquired absence of lung [part of]; Z90.49 Acquired absence of other specified parts of digestive tract; Z96.0 Presence of urogenital implants; Z87.891 Personal history of nicotine dependence

== ENCOUNTER 2018-10-31 09:59 | Inpatient (IN) | payer MEDICARE, OTHER ==
[~2018-10-31] VITALS: Ht 175.3 cm; Wt 59.1 kg
[2018-10-31] MEDS: SIMVASTATIN 10 MG TAB PO SCH (09:00)
[~2018-10-31 09:59] MED LIST changes: +CETI10TA8 PO; +ESOM1CAP5 PO; +FLUT50SP33; +LEVO250T12 PO; +PROBCAP14 PO
[2018-10-31] MEDS ORDERED: ONDA4TAB5 PO (10:11)
[2018-10-31 10:38] LABS: BASO # 0.1 10^3/uL (0.0-0.2); BASO % 0.9 % (0.0-1.0); EOS # 0.3 10^3/uL (0.0-0.50); EOS % 3.7 % (0.0-3.0); HEMATOCRIT 36.5 % (42.0-52.0); HEMOGLOBIN 11.7 g/dl (13.5-17.5); LYMPH # 1.3 10^3/uL (1.5-4.5); LYMPH % 14.3 % (24.0-44.0); MEAN CORPUSCULAR HEMOGLOBIN 30.5 pg (27.0-33.0); MEAN CORPUSCULAR HGB CONC 32.1 g/dl (32.0-36.5); MEAN CORPUSCULAR VOLUME 95.1 fl (80.0-96.0); MONO # 0.8 10^3/uL (0.0-0.8); MONO % 8.7 % (0.0-5.0); NEUTROPHILS # 6.5 10^3/uL (1.8-7.7); NEUTROPHILS % 71.5 % (36.0-66.0); PLATELET COUNT, AUTOMATED 231 10^3/uL (150-450); RED BLOOD COUNT 3.84 10^6/uL (4.30-6.10); WHITE BLOOD COUNT 9.1 10^3/uL (4.0-10.0)
[2018-10-31] MEDS ORDERED: IPRATROPIUM 0.5MG/ALBUTEROL 2.5MG INH SOL UD 3ML (DUONEB)(J7620) NEB ONE (10:45)
[2018-10-31] MEDS ORDERED: ALBUTEROL SULFATE 2.5 MG/0.5 ML INH NEB SOLN INH ONE (10:45)
[2018-10-31] MEDS ORDERED: NS 500 ML IV ONE ×2 (10:45→15:15)
--- NOTE | 2018-10-31 10:58 | REP ---
Chest one-view HISTORY: Cough Comparison: 07/04/2018 Linear densities are present in the right upper lobe consistent with scarring. A minimal increase in interstitial markings is present in the lungs consistent with chronic interstitial change. The heart is normal in size. The pulmonary vasculature is normal in appearance. Impression: 1. Right upper lobe scarring. 2. Chronic interstitial change. Electronically Signed by Mau Paiz MD 10/31/2018 10:50 A
[2018-10-31 11:11] LABS: ABG HCO3 24.7 MEQ/L (22.0-26.0); ABG O2 SATURATION 97.4 % (95.0-99.0); ABG PARTIAL PRESSURE CO2 32.3 mmHg (35.0-45.0); ABG PARTIAL PRESSURE O2 88.6 mmHg (75.0-100.0); ABG STANDARD HCO3 26.2 MEQ/L (22.0-26.0); ABG TOTAL CO2 25.7 MEQ/L (23.0-31.0); ABG pH (ARTERIAL) 7.501 UNITS (7.350-7.450)
[2018-10-31] MEDS ORDERED: ISOVUE-370 76% 100ML VIAL (Q9967) As Ordered ONE (11:12)
[2018-10-31 11:17] LABS: ALBUMIN 2.6 GM/DL (3.2-5.2); ALT/SGPT 31 U/L (12-78); BILIRUBIN,DIRECT 0.1 MG/DL (0.0-0.2); BILIRUBIN,TOTAL 0.3 MG/DL (0.2-1.0); CK-MB VALUE MASS < 1.0 NG/ML (<3.6); CPK CREATINE PHOSPHOKINASE 14 U/L (39-308); LIPASE 102 U/L (73-393); MB/CK RELATIVE INDEX 7.14 (< OR =4); NT-PRO BNP 339 PG/ML (<450); TOTAL PROTEIN 6.4 GM/DL (6.4-8.2); TROPONIN I < 0.02 NG/ML (< 0.10)
--- NOTE | 2018-10-31 12:17 | REP ---
CT ANGIOGRAM CHEST: TECHNIQUE: Axial contrast enhanced images from the thoracic inlet to the upper abdomen using 100 mL Isovue 370 intravenous contrast material with multiplanar reformations. There is no CT evidence of pulmonary embolism. There is atherosclerotic calcification of the thoracic aorta without aneurysm or dissection. Heart is not enlarged. Patient has had prior right lung surgery. No significant adenopathy is seen in the axillary, mediastinal or hilar regions. A small calcified lymph node is seen in the subcarinal region. There is a small hiatal hernia. There is mild pericardial fluid. There is diffuse chronic fibrotic change and postsurgical scarring. There is a new hazy infiltrate in the right lower lobe with a small right effusion. Small bullous changes are seen in the right lower lobe. IMPRESSION: No CT evidence of pulmonary embolism. Postsurgical and chronic fibrotic changes. Small amount of pericardial fluid. Small right effusion. Mild right lower lobe infiltrate. Electronically Signed by Dante Edwards MD 11/04/2018 01:44 P
--- NOTE | 2018-10-31 12:46 | REP ---
CT ABDOMEN AND PELVIS WITH IV CONTRAST: TECHNIQUE: Axial contrast enhanced images from the lung bases to the pubic symphysis using 100 mL Isovue 370 intravenous contrast material with multiplanar reformations. Liver demonstrates no mass. Gallbladder is significantly distended with possible wall edema raising the possibility of cholecystitis. There is no evidence for biliary dilatation. The spleen, adrenals, pancreas are unremarkable. Right kidney demonstrates two cysts as seen on prior study of 10/16/2018. There is significant left renal atrophy with a small cyst in the upper pole. There is no hydronephrosis bilaterally. There is mild ectasia of the distal abdominal aorta. There is atherosclerotic calcification. 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 A stent is seen in the proximal renal artery bilaterally. No adenopathy is seen. There is no free air or free fluid. There is no bowel wall thickening. Prostate is enlarged compressing upon the base of the bladder. There are degenerative changes of the spine. IMPRESSION: Significantly distended gallbladder with possible wall edema. I cannot exclude cholecystitis. There is no biliary dilatation or free fluid. Recommend right upper quadrant ultrasound. No other acute findings identified. Electronically Signed by Dante Edwards MD 11/04/2018 01:45 P
--- NOTE | 2018-10-31 13:58 | REP ---
RIGHT UPPER QUADRANT ULTRASOUND: Real-time sonographic evaluation of right upper quadrant performed. Moderate sludge is seen in a mildly distended gallbladder. No stones are seen. There is no gallbladder wall thickening. There is no pericholecystic fluid. There is no intrahepatic or extrahepatic biliary dilatation, common bile duct measuring 5 mm. Liver is grossly unremarkable. Pancreas could not be seen. Right kidney demonstrates no hydronephrosis with normal size 11.1 cm in length. Cyst in the mid right kidney measures 3 cm in diameter. IMPRESSION: Mildly distended gallbladder with moderate intraluminal sludge. No gallstones, gallbladder wall thickening, pericholecystic fluid, or biliary dilatation. Electronically Signed by Dante Edwards MD 11/04/2018 01:46 P
[2018-10-31] MEDS ORDERED: LIDOCAINE 2% 5ML JELLY UROJET TOP ONE (14:15)
[2018-10-31] MEDS ORDERED: GI COCKTAIL 50ML BTL(HYOSCYAMINE/MAALOX/LIDOCAINE VISCOUS)(1:3:1) PO ONE (15:00)
[2018-10-31 16:40] LABS: CK-MB VALUE MASS < 1.0 NG/ML (<3.6); CPK CREATINE PHOSPHOKINASE 15 U/L (39-308); MB/CK RELATIVE INDEX 6.67 (< OR =4); TROPONIN I < 0.02 NG/ML (< 0.10)
[2018-10-31] MEDS ORDERED: NS 1,000 ML IV ONE (17:30)
[2018-10-31] MEDS ORDERED: ACETAMINOPHEN TAB 650MG DOSE (2X325MG) PO PRN (17:45)
[2018-10-31] MEDS ORDERED: MAALOX 30 ML SUSP *UDC PO PRN (17:45)
[2018-10-31] MEDS: IPRATROPIUM 0.5MG/ALBUTEROL 2.5MG INH SOL UD 3ML (DUONEB)(J7620) NEB SCH (19:25)
[2018-10-31 20:26] LABS: INR 1.01; PROTHROMBIN TIME 13.4 SECONDS (12.1-14.4)
[2018-10-31 20:28] LABS: ALBUMIN 2.7 GM/DL (3.2-5.2); BILIRUBIN,TOTAL 0.3 MG/DL (0.2-1.0); CALCIUM LEVEL 8.9 MG/DL (8.8-10.2); CREATININE FOR GFR 1.4 MG/DL (0.70-1.30); POTASSIUM SERUM 4.1 MEQ/L (3.5-5.1); TOTAL PROTEIN 6.5 GM/DL (6.4-8.2)
[2018-10-31 21:16] VITALS: BP 177/88
[2018-10-31] MEDS: METOPROLOL TART 25 MG TABLET PO SCH (22:27)
[2018-10-31] MEDS: TAMSULOSIN 0.4 MG CAP PO SCH (22:27)
[2018-10-31] MEDS: HEPARIN SOD (PORCINE) 5000 UNITS/ML VIAL SC SCH (22:28)
[2018-10-31] MEDS: FAMOTIDINE IV BAG 20 MG in APPROPRIATE DILUENT 1 EA IV SCH (22:28)
[2018-11-01 02:00] VITALS: BP 168/86
[2018-11-01] MEDS: IPRATROPIUM 0.5MG/ALBUTEROL 2.5MG INH SOL UD 3ML (DUONEB)(J7620) NEB SCH ×4 (02:00→18:23)
--- NOTE | 2018-11-01 02:57 | HPEPDOC ---
General Date of Admission Oct 31, 2018 at 17:45 Date of Service: Oct 31, 2018 Chief Complaint The patient is a 88-year-old male admitted with a reason for visit of Gastroenteritis. Source: Patient, Old records History of Present Illness Pt is 88 y/o M with Hx of Lung Ca diagnosed 4 years ago , s/p lobe resection with no chemoradiation as per Pt. Pt f/u with hem/Onc on a regular basis and he states that there is new lesion found in his lung and kidney. 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 He presented to ED with complaints of abdominal pain , acid reflux and generalized weakness. Upon my encounter pt states that he has ongoing generalized abdominal pain for the last three months he has been worked up by GI and underwent EGD which revealed gastritis/inflammation. He states the last few weeks he has burning sensation due to acid reflux. As per ED physician he had orthostatic hypotension. He refers that when he gets up he feels dizzy and lightheaded. He denies any vomiting, any hematemesis. Denies any blood in the stools. Denies fever, chest pain or SOB. Home Medications Scheduled Allopurinol (Zyloprim) 300 Mg Tab, 150 MG PO DAILY, (Reported) Cetirizine HCl (Cetirizine HCl) 10 Mg Tablet, 10 MG PO DAILY, (Reported) Esomeprazole Magnesium (Esomeprazole Magnesium) 40 Mg Capsule.dr, 40 MG PO DAILY, (Reported) Finasteride (Finasteride) 5 Mg Tab, 5 MG PO DAILY, (Reported) Levothyroxine Sodium (Synthroid) 112 Mcg Tab, 112 MCG PO DAILY, (Reported) Metoprolol Tartrate (Metoprolol Tartrate) 50 Mg Tab, 25 MG PO BID, (Reported) Simvastatin (Simvastatin) 10 Mg Tab, 10 MG PO DAILY, (Reported) Tamsulosin HCl (Flomax) 0.4 Mg Cap, 0.4 MG PO QHS, (Reported) Scheduled PRN Albuterol Sulf (Albuterol Sulfate) 2.5 Mg/3 Ml Nebu, 2.5 MG INH Q4H PRN for SHORTNESS OF BREATH, (Reported) Albuterol Sulfate (Ventolin Hfa) 108 Mcg/Act Aer, 2 PUFFS INH Q4H PRN for SHORTNESS OF BREATH, (Reported) Fluticasone Propionate (Fluticasone Propionate) 15.8 Ml [place].susp, 2 SPRAYS NA DAILY PRN for NASAL CONGESTION, (Reported) Nitroglycerin (Nitrostat) 0.4 Mg Subl, 0.4 MG SL NITRO PRN for CHEST PAIN, (Reported) Ondansetron HCl (Ondansetron HCl) 4 Mg Tablet, 4 MG PO Q6H PRN for NAUSEA OR VOMITING, (Reported) Allergies Coded Allergies: ascorbic acid (Verified Allergy, Unknown, VIT C, 09/24/18) iron (Verified Allergy, Unknown, 09/24/18) Past Medical History Medical History multiple cancers including Stage 1A Adenocarcinoma of lung treated , 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 Stern , Hypothyroid, gout. Surgical History right upper lobectomy in 2013 right orchidectomy in cardiac stents Bilateral renal artery stents inguinal hernia repair carpal tunnel release breast biopsy appendectomy Family History Both parents . No family history of coronary artery disease. One brother from kidney problem. Social History * Smoker: former Smoker Alcohol: Denies Drugs: denies Remote tobacco use as well as alcohol drinking. Quit many years. No drug abuse. A-FIB/CHADSVASC A-FIB History Current/History of A-Fib/PAF?: No Review of Systems Constitutional: Denies: Chills, Fever, Night Sweats Eyes: Denies: Pain, Vision change ENT: Denies: Head Aches, Ear Pain, Dysphagia Skin: Denies: Rash, Lesions, Breakdown Pulmonary: Denies: Dyspnea, Cough Cardiovascular: Denies: Chest Pain, Palpitations, Orthopnea, Paroxysmal Noc. Dy spnea, Lt Headedness Musculoskeletal: Denies: Neck Pain, Back Pain, Joint Pain, Muscle Pain, Spasms Neurological: Denies: Weakness, Numbness, Change in speech, Confusion Psych: Reports: Mood Normal; Denies: Depression, Memory Issues Other systems GI : pt reports burning sensation, abdominal pain, dizziness, lightheadedness, generalized weakness Physical Examination General Exam: Positive: Alert, No Acute Distress Eye Exam: Positive: PERRLA, Conjunctiva & lids normal, EOMI; Negative: Sclera icteric ENT Exam: Positive: Atraumatic, Mucous membr. moist/pink, Pharynx Normal Neck Exam: Positive: Supple; Negative: JVD, thyromegaly Chest Exam: Positive: Clear to auscultation, Normal air movement Heart Exam: Positive: Rate Normal, Regular Rhythm, Normal S1, Normal S2; Negative: Murmurs, Rubs Telemetry: Positive: No significant arrhythmia Extremity Exam: Positive: Normal pulses; Negative: Clubbing, Cyanosis, Edema Psych Exam: Positive: Mental status NL, Mood NL, Oriented x 3 Other physical findings Pt has epigastric tenderness, Positive orthostatic hypotension, dry mucus membrane, diminished skin turgor Vital Signs Vital Signs Date Time Temp Pulse Resp B/P (MAP) Pulse Ox O2 Delivery O2 Flow Rate FiO2 10/31/18 22:27 85 175/88 10/31/18 21:16 97.6 18 86 10/31/18 19:46 Room Air Laboratory Data Labs 24H Laboratory Tests 2 10/31/18 10:28: Immature Granulocyte % (Auto) 0.9, White Blood Count 9.1, Red Blood Count 3.84L, Hemoglobin 11.7L, Hematocrit 36.5L, Mean Corpuscular Volume 95.1, Mean Corpuscular Hemoglobin 30.5, Mean Corpuscular Hemoglobin Concent 32.1, Red Cell Distribution Width 16.0H, Platelet Count 231, Neutrophils (%) (Auto) 71.5H, Lymphocytes (%) (Auto) 14.3L, Monocytes (%) (Auto) 8.7H, Eosinophils (%) (Auto) 3.7H, Basophils (%) (Auto) 0.9, Neutrophils # (Auto) 6.5, Lymphocytes # (Auto) 1.3L, Monocytes # (Auto) 0.8, Eosinophils # (Auto) 0.3, Basophils # (Auto) 0.1, Nucleated Red Blood Cells % (auto) 0.0, Aspartate Amino Transf (AST/SGOT) 29, Alanine Aminotransferase (ALT/SGPT) 31, Alkaline Phosphatase 100, Total Bili estes 0.3, Direct Bilirubin 0.1, Total Creatine Kinase 14L, Creatine Kinase MB < 1.0, Creatine Kinase MB Relative Index 7.14H, Troponin I < 0.02, GE-Nmj-[id number]-Type Natriuretic Peptide 339, Total Protein 6.4, Albumin 2.6L, Albumin/Globulin Ratio 0.68L, Lipase 102, Thyroid Stimulating Hormone (TSH) 18.400H 10/31/18 10:31: POC Glucose (Misc Panel) 90, POC Sodium (Misc Panel) 138, POC Potassium (Misc Panel) 4.4, POC Chloride (Misc Panel) 101, POC Total CO2 (Misc Panel) 30.0H, POC Blood Urea Nitrogen (Misc Panel 28H, POC Ionized Calcium (Misc Panel) 4.1L, POC Creatinine (Misc Panel) 1.5H, POC Hematocrit (Misc Panel) 34.0L 10/31/18 10:46: Activated Partial Thromboplast Time 28.5, Lactic Acid Level 1.4 10/31/18 10:52: Blood Gas Bicarbonate Standard 26.2H, Arterial Blood pH 7.501H, Arterial Blood Partial Pressure CO2 32.3L, Arterial Blood Partial Pressure O2 88.6, Arterial Blood Total CO2 25.7, Arterial Blood HCO3 24.7, Arterial Blood Base Excess 2.0, Arterial Blood Oxygen Saturation 97.4 10/31/18 14:29: Urine Color YELLOW, Urine Appearance CLEAR, Urine pH 7.0, Urine Specific [place] 1.035, Urine Protein NEGATIVE, Urine Glucose (UA) NEGATIVE, Urine Ketones TRACEH, Urine Blood NEGATIVE, Urine Nitrite NEGATIVE, Urine Bilirubin NEGATIVE, Urine Urobilinogen 0.2, Urine Leukocyte Esterase NEGATIVE, Urine WBC (Auto) 0, Urine RBC (Auto) 2, Urine Hyaline Casts (Auto) 0, Urine Bacteria (Auto) NEGATIVE, Urine Squamous Epithelial Cells 0, Urine Sperm (Auto) 10/31/18 15:51: Total Creatine Kinase 15L, Creatine Kinase MB < 1.0, Creatine Kinase MB Relative Index 6.67H, Troponin I < 0.02 10/31/18 19:38: Prothrombin Time 13.4, Prothromb Time International Ratio 1.01, Anion Gap 9, Glomerular Filtration Rate 51.0, Blood Urea Nitrogen 23H, Creatinine 1.40H, Sodium Level 139, Potassium Level 4.1, Chloride Level 105, Carbon Dioxide Level 25, Calcium Level 8.9, Aspartate Amino Transf (AST/SGOT) 23, Alanine Aminotransferase (ALT/SGPT) 27, Alkaline Phosphatase 88, Total Bilirubin 0.3, Total Protein 6.5, Albumin 2.7L, Albumin/Globulin Ratio 0.71L CBC/BMP Laboratory Tests 10/31/18 10:28 Red Blood Count 3.84 L, Mean Corpuscular Volume 95.1, Mean Corpuscular Hem oglobin 30.5, Mean Corpuscular Hemoglobin Concent 32.1, Red Cell Distribution Width 16.0 H, Neutrophils (%) (Auto) 71.5 H, Lymphocytes (%) (Auto) 14.3 L, Monocytes (%) (Auto) 8.7 H, Eosinophils (%) (Auto) 3.7 H, Basophils (%) (Auto) 0.9, Neutrophils # (Auto) 6.5, Lymphocytes # (Auto) 1.3 L, Monocytes # (Auto) 0.8, Eosinophils # (Auto) 0.3, Basophils # (Auto) 0.1 10/31/18 19:38 Calcium Level 8.9, Aspartate Amino Transf (AST/SGOT) 23, Alanine Aminotransferase (ALT/SGPT) 27, Alkaline Phosphatase 88, Total Bilirubin 0.3, Total Protein 6.5, Albumin 2.7 L Microbiology Microbiology 10/31/18 Blood Culture, Received Pending 10/31/18 Blood Culture, Received Pending Assessment/Plan Pt is 88 y/o M with Hx of lung CA, s/p lobectomy with possible recent recurrence (?), presented to ED with abdominal pain, acid reflux , generalized weakness and orthostatic hypotension. Pt will be admitted to regular floor to receive IVF resuscitation, correct electrolyte abnormalities, symptomatic management of N /V/GI discomfort. Recent abdominal sono and CT scan completed reveales possible gastritis. 1-Dehydration 2/2 GI loss 2-Generalized weakness/Deconditioning 3-Gastroenteritis 4-Hx of Lung CA Plan / VTE VTE Prophylaxis Ordered?: Yes VTE Exclusion Mechanical Proph: Other VTE Exclusion Pharmacological: Other LEIDA HARRIS MD Nov 01, 2018 02:57
[2018-11-01] MEDS: HEPARIN SOD (PORCINE) 5000 UNITS/ML VIAL SC SCH ×3 (05:24→20:04)
[2018-11-01 05:40] VITALS: BP 142/72
[2018-11-01 06:42] LABS: ALBUMIN 2.1 GM/DL (3.2-5.2); BILIRUBIN,TOTAL 0.2 MG/DL (0.2-1.0); CALCIUM LEVEL 7.6 MG/DL (8.8-10.2); CREATININE FOR GFR 1.28 MG/DL (0.70-1.30); GLOMERULAR FILTRATION RATE 56.6 (>35); MAGNESIUM LEVEL 2.1 MG/DL (1.8-2.4); POTASSIUM SERUM 4.2 MEQ/L (3.5-5.1); TOTAL PROTEIN 5.3 GM/DL (6.4-8.2)
[2018-11-01] MEDS: SIMVASTATIN 10 MG TAB PO SCH (08:44)
[2018-11-01] MEDS: METOPROLOL TART 25 MG TABLET PO SCH ×2 (08:44→20:04)
[2018-11-01 10:00] VITALS: BP 148/74
[2018-11-01 13:56] VITALS: BP 148/74
[2018-11-01 17:50] VITALS: BP 149/74
[2018-11-01] MEDS: TAMSULOSIN 0.4 MG CAP PO SCH (20:04)
[2018-11-01] MEDS: FAMOTIDINE IV BAG 20 MG in APPROPRIATE DILUENT 1 EA IV SCH (20:05)
[2018-11-01] MEDS: ONDANSETRON 4 MG TAB (S0181) PO PRN (20:06)
[2018-11-01 22:00] VITALS: BP 134/73
--- NOTE | 2018-11-01 23:25 | IPNPDOC ---
Text Note Date of Service The patient was seen on 11/01/18. NOTE Pt was seen and examined at bedside. Reports improvement in abdominal discomfor t. Denies N/V. Denies hematemesis or blood in the stool. Subjective: Constitutional: Denies: Chills, Fever, Night Sweats Eyes: Denies: Pain, Vision change ENT: Denies: Head Aches, Ear Pain, Dysphagia Skin: Denies: Rash, Lesions, Breakdown Pulmonary: Denies: Dyspnea, Cough Cardiovascular: Denies: Chest Pain, Palpitations, Orthopnea, Paroxysmal Noc. Dyspnea, Lt Headedness Musculoskeletal: Denies: Neck Pain, Back Pain, Joint Pain, Muscle Pain, Spasms Neurological: Denies: Weakness, Numbness, Change in speech, Confusion Psych: Reports: Mood Normal; Denies: Depression, Memory Issues Other systems GI : pt reports burning sensation, abdominal pain, dizziness, lightheadedness, generalized weakness Physical Examination General Exam: Positive: Alert, No Acute Distress Eye Exam: Positive: PERRLA, Conjunctiva & lids normal, EOMI; Negative: Sclera icteric ENT Exam: Positive: Atraumatic, Mucous membr. moist/pink, Pharynx Normal Neck Exam: Positive: Supple; Negative: JVD, thyromegaly Chest Exam: Positive: Clear to auscultation, Normal air movement Heart Exam: Positive: Rate Normal, Regular Rhythm, Normal S1, Normal S2; Negative: Murmurs, Rubs Telemetry: Positive: No significant arrhythmia Extremity Exam: Positive: Normal pulses; Negative: Clubbing, Cyanosis, Edema Psych Exam: Positive: Mental status NL, Mood NL, Oriented x 3 Other physical findings Pt has epigastric tenderness, Positive orthostatic hypotension, dry mucus mem brane, diminished skin turgor Vital Signs Date Time Temp Pulse Resp B/P (MAP) Pulse Ox O2 Delivery O2 Flow Rate FiO2 11/01/18 22:00 98.0 73 19 134/73 (93) 95 11/01/18 20:04 74 134/74 11/01/18 17:50 97.8 62 16 149/74 (99) 92 11/01/18 13:56 98.2 93 16 148/74 (98) 91 11/01/18 10:00 98.9 74 16 148/74 (98) 95 11/01/18 08:44 62 139/66 11/01/18 05:40 97.7 62 142/72 (95) 97 Intake & Output 11/02/18 06:00 Intake Total 450 ml Output Total 640 ml Balance -190 ml Laboratory Tests 11/01/18 05:58: Blood Urea Nitrogen 20H, Creatinine 1.28, Sodium Level 140, Potassium Level 4.2, Chloride Level 109H, Carbon Dioxide Level 26, Calcium Level 7.6L, Aspartate Amino Transf (AST/SGOT) 26, Alanine Aminotransferase (ALT/SGPT) 29, Alkaline Phosphatase 81, Total Bilirubin 0.2, Total Protein 5.3L, Albumin 2.1#L, Anion Gap 5L, Glomerular Filtration Rate 56.6, Fasting Glucose 79, Magnesium Level 2.1, Albumin/Globulin Ratio 0.66L 11/01/18 12:05: Bedside Glucose (Misc Panel) 101 11/01/18 16:35: Bedside Glucose (Misc Panel) 93 Microbiology 11/01/18 Stool Occult Blood (GIOVANNI) - Final, Complete 11/01/18 Stool Occult Blood (GIOVANNI) - Final, Complete 11/01/18 Stool Occult Blood (GIOVANNI) - Final, Complete Current Medications Medications (Trade) Dose Ordered Sig/Emil Route PRN Reason Start Time Stop Time Status Last Admin Dose Admin Albuterol/ Ipratropium (Duoneb (Ipr 0.5mg/Alb 2.5mg)) 3 ml RQ6H NEB 10/31/18 20:00 11/02/18 01:22 3 ML Famotidine 20 mg/ IV Miscellaneous Supplies 50 ml @ 100 mls/hr Q24H IV 10/31/18 20:00 11/01/18 20:05 100 MLS/HR Heparin Sodium (Porcine) (Heparin) 5,000 units Q8H SC 10/31/18 21:00 11/01/18 20:04 5,000 UNITS Metoprolol Tartrate (Lopressor) 25 mg BID PO 10/31/18 21:00 11/01/18 20:04 25 MG Ondansetron HCl (Zofran) 4 mg Q6H PRN PO NAUSEA OR VOMITING 10/31/18 16:30 11/01/18 20:06 4 MG Simvastatin (Zocor) 10 mg DAILY PO 10/31/18 09:00 11/01/18 08:44 10 MG Tamsulosin HCl (Flomax) 0.4 mg QHS PO 10/31/18 21:00 11/01/18 20:04 0.4 MG Assessment/Plan Pt is 88 y/o M with Hx of lung CA, s/p lobectomy with possible recent recurrence (?), presented to ED with abdominal pain, acid reflux , generalized weakness and orthostatic hypotension. Pt will be admitted to regular floor to receive IVF resuscitation, correct electrolyte abnormalities, symptomatic management of N/V/GI discomfort. Recent abdominal sono and CT scan completed reveales possible gastritis. 1-Dehydration 2/2 GI loss 2-Generalized weakness/Deconditioning 3-Gastroenteritis 4-Hx of Lung CA Cont current management VS,Fishbone, I+O VS, Fishbone, I+O Laboratory Tests 11/01/18 05:58 Calcium Level 7.6 L, Aspartate Amino Transf (AST/SGOT) 26, Alanine Aminotransferase (ALT/SGPT) 29, Alkaline Phosphatase 81, Total Bilirubin 0.2, [place] Protein 5.3 L, Albumin 2.1 #L Vital Signs Date Time Temp Pulse Resp B/P (MAP) Pulse Ox O2 Delivery O2 Flow Rate FiO2 11/01/18 22:00 98.0 73 19 134/73 (93) 95 10/31/18 19:46 Room Air I&O- Last 24 Hours up to 6 AM 11/01/18 06:00 Intake Total 650 ml Output Total 525 ml Balance 125 ml LEIDA HARRIS MD Nov 01, 2018 23:25
[2018-11-02] MEDS: IPRATROPIUM 0.5MG/ALBUTEROL 2.5MG INH SOL UD 3ML (DUONEB)(J7620) NEB SCH ×2 (01:22→07:57)
[2018-11-02 02:00] VITALS: BP 144/70
[2018-11-02] MEDS: HEPARIN SOD (PORCINE) 5000 UNITS/ML VIAL SC SCH (05:45)
[2018-11-02] MEDS: ONDANSETRON 4 MG TAB (S0181) PO PRN (05:45)
[2018-11-02 06:00] VITALS: BP 142/68
--- NOTE | 2018-11-02 08:04 | ECGEPIP ---
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
[2018-11-02 08:08] VITALS: BP 142/68
[2018-11-02] MEDS: SIMVASTATIN 10 MG TAB PO SCH (08:08)
[2018-11-02] MEDS: METOPROLOL TART 25 MG TABLET PO SCH (08:08)
--- NOTE | 2018-11-02 08:16 | ECGEPIP ---
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
[2018-11-02 10:00] VITALS: BP 142/68
--- NOTE | 2018-11-02 10:14 | DS.PDOC ---
Discharge Summary General Date of Admission Oct 31, 2018 at 17:45 Discharge Summary PROCEDURES PERFORMED DURING STAY: [None]. ADMITTING DIAGNOSES: 1. . DISCHARGE DIAGNOSES: 1. . COMPLICATIONS/CHIEF COMPLAINT: Gastroenteritis. HISTORY OF PRESENT ILLNESS: . HOSPITAL COURSE: . DISCHARGE MEDICATIONS: Please see below. ALLERGIES: Please see below. PHYSICAL EXAMINATION ON DISCHARGE: VITAL SIGNS: Please see below. GENERAL: HEENT: NECK: CARDIOVASCULAR EXAMINATION: RESPIRATORY EXAMINATION: ABDOMINAL EXAMINATION: EXTREMITIES: SKIN: NEUROLOGICAL EXAMINATION: PSYCHIATRIC EXAMINATION: LABORATORY DATA: Please see below. IMAGING: [facility] Department of Laboratories [place] [address] Perla Evans MD, [facility] Report Name: SUNITHA PAEZ Unit: [id number] Spec#: [id number] Signout: 09/26/18 Patient Name: SUNITHA PAEZ Unit#: [id number] Spec#: [id number] Page 2 of 2 [facility] Department of Laboratories [place], [place] [address] Perla Evans MD, [facility] Report Patient Name: SUNITHA PAEZ Unit#: [id number] Spec#: [id number] Page 1 of 2 Specimen #: [id number] Received Date: 09/25/18 Specimen Date: 09/24/18 Reported Date: 09/26/18 FINAL DIAGNOSIS A Small bowel, biopsy: No villous abnormality identified. B Gastric antrum, scar, biopsy: No significant pathologic change. No Helicobacter organisms identified. C Gastric body, biopsy: No significant pathologic change. No Helicobacter organisms identified. PROGNOSIS: ACTIVITY: [As tolerated]. DIET: DISCHARGE PLAN: DISPOSITION: . DISCHARGE INSTRUCTIONS: 1. . ITEMS TO FOLLOWUP ON ON OUTPATIENT: 1. . DISCHARGE CONDITION: [Stable]. TIME SPENT ON DISCHARGE: Greater than minutes. Vital Signs/I&Os Vital Signs Date Time Temp Pulse Resp B/P (MAP) Pulse Ox O2 Delivery O2 Flow Rate FiO2 11/02/18 08:08 72 142/68 11/02/18 06:00 98.2 18 96 10/31/18 19:46 Room Air I&O- Last 24 Hours up to 6 AM 11/02/18 06:00 Intake Total 450 ml Output Total 640 ml Balance -190 ml Laboratory Data Labs 24H Laboratory Tests 2 11/01/18 12:05: Bedside Glucose (Misc Panel) 101 11/01/18 16:35: Bedside Glucose (Misc Panel) 93 FSBS Laboratory Tests Test 11/01/18 12:05 11/01/18 16:35 Range/Units Bedside Glucose (Misc Panel) 101 93 83-110 MG/DL Microbiology Microbiology 10/31/18 Blood Culture - Preliminary, Resulted No growth after 24 hours . All specim... 10/31/18 Blood Culture - Preliminary, Resulted No growth after 24 hours . All specim... 11/01/18 Stool Occult Blood (GIOVANNI) - Final, Complete 11/01/18 Stool Occult Blood (GIOVANNI) - Final, Complete 11/01/18 Stool Occult Blood (GIOVANNI) - Final, Complete Discharge Medications Scheduled Allopurinol (Zyloprim) 300 Mg Tab, 150 MG PO DAILY, (Reported) Cetirizine HCl (Cetirizine HCl) 10 Mg Tablet, 10 MG PO DAILY, (Reported) Esomeprazole Magnesium (Esomeprazole Magnesium) 40 Mg Capsule.dr, 40 MG PO DAILY, (Reported) Finasteride (Finasteride) 5 Mg Tab, 5 MG PO DAILY, (Reported) Levothyroxine Sodium (Synthroid) 112 Mcg Tab, 112 MCG PO DAILY, (Reported) Metoprolol Tartrate (Metoprolol Tartrate) 50 Mg Tab, 25 MG PO BID, (Reported) Simvastatin (Simvastatin) 10 Mg Tab, 10 MG PO DAILY, (Reported) Tamsulosin HCl (Flomax) 0.4 Mg Cap, 0.4 MG PO QHS, (Reported) Scheduled PRN Albuterol Sulf (Albuterol Sulfate) 2.5 Mg/3 Ml Nebu, 2.5 MG INH Q4H PRN for SHORTNESS OF BREATH, (Reported) Albuterol Sulfate (Ventolin Hfa) 108 Mcg/Act Aer, 2 PUFFS INH Q4H PRN for SHORTNESS OF BREATH, (Reported) Fluticasone Propionate (Fluticasone Propionate) 15.8 Ml [place].susp, 2 SPRAYS NA DAILY PRN for NASAL CONGESTION, (Reported) Nitroglycerin (Nitrostat) 0.4 Mg Subl, 0.4 MG SL NITRO PRN for CHEST PAIN, (Reported) Ondansetron HCl (Ondansetron HCl) 4 Mg Tablet, 4 MG PO Q6H PRN for NAUSEA OR VOMITING, (Reported) Allergies Coded Allergies: ascorbic acid (Verified Allergy, Unknown, VIT C, 09/24/18) iron (Verified Allergy, Unknown, 09/24/18) LEIDA HARRIS MD Nov 02, 2018 10:14
== END 2018-11-02 12:04 | disposition home or self-care (01) | DRG 392 ==
LOC: EDBD 09:59 → M ED 09:59 → M ED INP 17:45 → M MS5PR 21:30
PROVIDERS: ADMIT Hospitalist; ATTEND Hospitalist
DX: K52.9 Noninfective gastroenteritis and colitis, unspecified (principal); C91.90 Lymphoid leukemia, unspecified not having achieved remission; I25.10 Atherosclerotic heart disease of native coronary artery without angina pectoris; K21.9 Gastro-esophageal reflux disease without esophagitis; K29.70 Gastritis, unspecified, without bleeding; I95.1 Orthostatic hypotension; N40.0 Benign prostatic hyperplasia without lower urinary tract symptoms; E78.5 Hyperlipidemia, unspecified; K44.9 Diaphragmatic hernia without obstruction or gangrene; K57.90 Diverticulosis of intestine, part unspecified, without perforation or abscess without bleeding; J44.9 Chronic obstructive pulmonary disease, unspecified; E86.0 Dehydration; N18.9 Chronic kidney disease, unspecified; I12.9 Hypertensive chronic kidney disease with stage 1 through stage 4 chronic kidney disease, or unspecified chronic kidney disease; R53.1 Weakness; D64.9 Anemia, unspecified; E03.9 Hypothyroidism, unspecified; M10.9 Gout, unspecified; N32.89 Other specified disorders of bladder; Z85.118 Personal history of other malignant neoplasm of bronchus and lung; Z90.2 Acquired absence of lung [part of]; Z95.5 Presence of coronary angioplasty implant and graft; Z96.0 Presence of urogenital implants; Z88.8 Allergy status to other drugs, medicaments and biological substances; Z79.899 Other long term (current) drug therapy; Z85.47 Personal history of malignant neoplasm of testis; Z90.49 Acquired absence of other specified parts of digestive tract; Z90.79 Acquired absence of other genital organ(s); Z87.891 Personal history of nicotine dependence

== ENCOUNTER → 2019-01-06 | Outpatient (CLI) | payer MEDICARE, OTHER ==
[~2019-01-06] MED LIST changes: +ONDA4TAB5 PO; -ROSU10TA5 PO; +ROSU10TA6 PO
--- NOTE | 2019-01-06 14:52 | REP ---
REASON FOR EXAM: Hydronephrosis. COMPARISON EXAM: 03/14/2016. Prior right upper quadrant ultrasound of 10/31/2018 showed a 3 cm sized cyst in the right kidney. The right kidney measures 10.0 x 4.5 x 4.4 cm and left kidney measures 5.1 x 2.6 x 3.1 cm. The right renal cortical echoes are normal. There is good cortical medullary differentiation. There is a 3 cm sized anechoic structure seen in the right kidney unchanged from the prior right upper quadrant ultrasound and consistent with a cyst. There is no solid masses. There is no hydronephrosis. The left renal cortical echoes are increased and there is less than optimal cortical medullary differentiation. There are no cystic or solid masses seen on the left. IMPRESSION: 1. Simple right renal cyst status quo. 2. Atrophic echogenic left kidney etiology uncertain. This could be congenital or vascular related. Electronically Signed by Hari Sellers DO 01/06/2019 04:47 P
== END ==
LOC: M RAD 11:07
PROVIDERS: ATTEND Nurse Practitioner Family
DX: N28.1 Cyst of kidney, acquired (principal)

== ENCOUNTER → 2019-02-20 | Outpatient (REF) | payer MEDICARE, OTHER ==
[~2019-02-20] MED LIST changes: +FURO20TA2 PO; +PANT40TA3 PO; +POTA20TA6 PO
[2019-02-20 17:39] LABS: APPEARANCE, URINE TURBID (CLEAR); BACTERIA, URINE AUTO 3+ (NEGATIVE); BILIRUBIN, URINE AUTO NEGATIVE (NEGATIVE); BLOOD, URINE BLOOD 2+ (NEGATIVE); COLOR, URINE YELLOW (YELLOW); GLUCOSE, URINE (UA) AUTO NEGATIVE (NEGATIVE); KETONE, URINE AUTO NEGATIVE (NEGATIVE); LEUKOCYTE ESTERASE, URINE AUTO 3+ (NEGATIVE); NITRITE, URINE AUTO NEGATIVE (NEGATIVE); PROTEIN, URINE AUTO 2+ mg/dL (NEGATIVE); RBC, URINE AUTO 21 /HPF (0-3); SPECIFIC GRAVITY URINE AUTO 1.009 (1.002-1.035); SQUAMOUS EPITHELIAL CELL UR AU 0 /HPF (0-6); UROBILINOGEN, URINE AUTO 0.2 mg/dL (0.0-2.0); WBC, URINE AUTO TNTC /HPF (0-3)
== END ==
LOC: M SMT 16:39
PROVIDERS: ATTEND Nurse Practitioner Family
DX: R30.0 Dysuria (principal)

== ENCOUNTER → 2019-03-27 | Outpatient (REF) | payer MEDICARE, OTHER ==
[2019-03-27 13:46] LABS: APPEARANCE, URINE MANUAL CLOUDY (CLEAR); COLOR, URINE MANUAL YELLOW (YELLOW)
[2019-03-27 13:47] LABS: GLUCOSE, URINE (UA) MANUAL NEGATIVE (NEGATIVE); KETONE, URINE MANUAL NEGATIVE (NEGATIVE); PROTEIN, URINE MANUAL 3+ mg/dL (NEGATIVE); SPECIFIC GRAVITY,URINE MANUAL 1.015 (1.002-1.035); UROBILINOGEN, URINE MANUAL NORMAL (NORMAL)
[2019-03-27 13:48] LABS: BILIRUBIN, URINE MANUAL NEGATIVE (NEGATIVE); BLOOD URINE MANUAL POSITIVE (NEGATIVE); LEUKOCYTE ESTERASE, URINE MAN POSITIVE (NEGATIVE); NITRITE, URINE MANUAL POSITIVE (NEGATIVE)
[2019-03-27 13:54] LABS: BACTERIA, URINE SMALL AMOUNT; RBC, URINE NONE SEEN /hpf (0-3); SQUAMOUS EPITHELIAL CELL URINE NONE SEEN /hpf (SMALL AMT); WBC, URINE 15-20 /hpf (0-3)
[2019-03-27 13:58] LABS: HYALINE CAST, URINE NONE SEEN /lpf (0-1); YEAST, URINE SMALL AMOUNT
== END ==
LOC: M SMT 13:03
PROVIDERS: ATTEND Nurse Practitioner Family
DX: Z01.818 Encounter for other preprocedural examination (principal); N13.30 Unspecified hydronephrosis; R33.8 Other retention of urine

== ENCOUNTER 2019-04-04 08:37 | Day surgery (SDC) | payer MEDICARE, OTHER ==
[~2019-04-04] VITALS: Ht 175.3 cm; Wt 55.7 kg
[~2019-04-04 08:37] MED LIST changes: +CIPROFLOXACIN 400 MG in IV 1 EA IV ONE; +LIDOCAINE 1% MDV 20ML VIAL SQ PRN; +LR 1,000 ML IV ONE
[2019-04-04] MEDS ORDERED: PROPOFOL 200 MG/20 ML VIAL As Ordered ONE (08:45)
[2019-04-04] MEDS ORDERED: LIDOCAINE 2% INJ 100 MG/5 ML SDV (FOR ANES.) As Ordered ONE (08:46)
[2019-04-04] MEDS ORDERED: MIDAZOLAM INJ 2 MG/2 ML VIAL (J2250) As Ordered ONE (08:48)
[2019-04-04] MEDS ORDERED: ONDANSETRON 4MG/2ML VIAL (J2405) As Ordered ONE (08:49)
[2019-04-04] MEDS ORDERED: fentaNYL 100 MCG/2 ML INJECTION (J3010) As Ordered ONE (08:49)
[2019-04-04] MEDS ORDERED: dexameTHASONE 4 MG/ML 1ML VIAL (J1100) As Ordered ONE (08:49)
[2019-04-04] MEDS ORDERED: LIDOCAINE 2% 5ML JELLY UROJET As Ordered ONE (11:20)
[2019-04-04] MEDS ORDERED: CONRAY-60 60% 50ML VIAL (Q9961) As Ordered ONE (11:46)
--- NOTE | 2019-04-04 12:43 | REP ---
RETROGRADE PYELOGRAM: TWO VIEWS. HISTORY: Ureteral stricture. 22 seconds of fluoroscopy time is reported. FINDINGS: A sequence of two last image hold fluoroscopic spot radiographs of the abdomen document ureteral cannulation, contrast injection, and stent placement. No laterality markers are visible. Electronically Signed by Gregor Moran MD 04/04/2019 01:56 P
[2019-04-04] MEDS ORDERED: ACETAMINOPHEN TAB 650MG DOSE (2X325MG) PO PRN (13:00)
[2019-04-04 13:20] VITALS: BP 169/81
--- NOTE | 2019-04-04 16:26 | RO ---
DATE OF PROCEDURE: 04/04/2019 PREPROCEDURE DIAGNOSIS: Right ureteral stricture. POSTPROCEDURE DIAGNOSIS: Right ureteral stricture. PROCEDURE: Cystoscopy, right retrograde pyelogram with intraoperative interpretation of images, right ureteral stent exchange. SURGEON: Anup Stern MD CONFECTIONERY DROPS MACHINE OPERATOR: None. ANESTHESIA: Monitored anesthesia care (MAC). OPERATIVE INDICATIONS: This is an 89-year-old male with a right ureteral stricture, which is managed with chronic ureteral stenting at this point. He is here today for ureteral stent exchange. DESCRIPTION OF PROCEDURE: The patient was brought to the operating room and MAC anesthesia was administered. Prophylactic antibiotics were infused. He was then placed in the dorsal lithotomy position and prepped and draped in the usual sterile fashion. A rigid cystoscope was inserted into the urethral meatus and advanced to the bladder. Once inside the bladder, the previously placed stent was grasped and withdrawn until the distal end was seen protruding from the urethral meatus. A guidewire was advanced up the right ureteral stent into the right collecting system. The stent was then completely removed, leaving the wire in place. At this point, the sheath where for the Resonance stent was advanced over the wire and up to the right collecting system. The wire was then removed and a retrograde pyelogram was performed. It was notable for what mild right hydronephrosis, no extravasation. I then utilized a sheath to advance the Resonance stent up into the right collecting system. The pusher was utilized to advance it all the way in and then the sheath was withdrawn until the stent was released. Once done there were adequate curls of the Resonance stent in the right renal pelvis and in the bladder. At this point, a new 16-Russian Coude catheter was inserted into the bladder as the patient came to the hospital with one. The balloon was filled with 10 mL of sterile water and the catheter was connected to gravity drainage. This marked the conclusion of the procedure. The patient was then taken out of the dorsal lithotomy position, awakened from anesthesia, and transported to recovery room in stable condition. ESTIMATED BLOOD LOSS: 5 mL. COMPLICATIONS: None. SPECIMENS: None. PLAN: The patient will continue to followup for catheter changes once a month. He will followup in the clinic in 3 months with renal ultrasound prior to assess for hydronephrosis. If there is hydronephrosis, we will have to exchange the stent. If there is no hydronephrosis, we will try to keep the stent in longer, ideally for up to a year. BGD
== END 2019-04-04 13:30 | disposition home or self-care (01) ==
LOC: M SDC 08:37
PROVIDERS: ATTEND Urology
DX: R33.8 Other retention of urine (principal); N13.30 Unspecified hydronephrosis; I10 Essential (primary) hypertension; E78.00 Pure hypercholesterolemia, unspecified; E05.90 Thyrotoxicosis, unspecified without thyrotoxic crisis or storm; I73.9 Peripheral vascular disease, unspecified; J44.9 Chronic obstructive pulmonary disease, unspecified; I25.10 Atherosclerotic heart disease of native coronary artery without angina pectoris; Z87.891 Personal history of nicotine dependence; K22.719 Barrett's esophagus with dysplasia, unspecified; Z79.899 Other long term (current) drug therapy
CPT/HCPCS: 52332; 74420; C1769; C2625; J0744; J1100; J2250; J2405; J3010; Q9961

== ENCOUNTER → 2019-05-01 | Outpatient (REF) | payer MEDICARE, OTHER ==
[~2019-05-01] MED LIST changes: -CIPROFLOXACIN 400 MG in IV 1 EA IV ONE; -LIDOCAINE 1% MDV 20ML VIAL SQ PRN; -LR 1,000 ML IV ONE; -SIMV10TA2 PO; +SIMV10TA21 PO
[2019-05-01 14:01] LABS: PERCENT SATURATION 16.4 % (19.7-50.0)
== END ==
LOC: M LAB REF 13:34
PROVIDERS: ATTEND Nurse Practitioner Family
DX: N39.0 Urinary tract infection, site not specified (principal); D64.9 Anemia, unspecified

== ENCOUNTER 2019-05-07 11:37 | Inpatient (IN) | payer MEDICARE, OTHER ==
[~2019-05-07] VITALS: Ht 175.3 cm; Wt 51.2 kg
[2019-05-07 12:53] LABS: BASO # 0.1 10^3/uL (0.0-0.2); BASO % 0.7 % (0.0-1.0); EOS # 0.2 10^3/uL (0.0-0.5); EOS % 1.7 % (0.0-3.0); HEMATOCRIT 29.1 % (42.0-52.0); HEMOGLOBIN 8.6 g/dl (13.5-17.5); LYMPH # 1.3 10^3/uL (1.5-5.0); MEAN CORPUSCULAR HEMOGLOBIN 28.8 pg (27.0-33.0); MEAN CORPUSCULAR HGB CONC 29.6 g/dl (32.0-36.5); MEAN CORPUSCULAR VOLUME 97.3 fl (80.0-96.0); MONO # 1.2 10^3/uL (0.0-0.8); MONO % 9.3 % (0.0-5.0); NEUTROPHILS # 9.7 10^3/uL (1.5-8.5); NEUTROPHILS % 75.3 % (36.0-66.0); PLATELET COUNT, AUTOMATED 277 10^3/uL (150-450); RED BLOOD COUNT 2.99 10^6/uL (4.30-6.10); WHITE BLOOD COUNT 12.8 10^3/uL (4.0-10.0)
--- NOTE | 2019-05-07 12:56 | REP ---
Single view chest: 05/07/2019. Indication: Hypotension. Comparison: 10/31/2018. Findings: No focal airspace consolidation is present. There is no significant pleural effusion or pneumothorax. The cardiomediastinal silhouette is unremarkable. There is rightward deviation of the trachea with right upper pulmonary surgical sequelae. Chronic interstitial fibrotic changes are present, particularly within the left lung base. Impression: No acute cardiopulmonary process. Electronically Signed by Kiet Leger DO 05/07/2019 12:47 P
[2019-05-07 13:06] LABS: INR 1.13; PROTHROMBIN TIME 14.3 SECONDS (11.8-14.0)
[2019-05-07 13:07] LABS: PARTIAL THROMBOPLASTIN TIME 30.7 SECONDS (25.0-38.4)
[2019-05-07 13:44] LABS: BLOOD UREA NITROGEN 26 MG/DL (7-18); CARBON DIOXIDE LEVEL 23 MEQ/L (21-32); CHLORIDE LEVEL 108 MEQ/L (98-107); CREATININE FOR GFR 1.66 MG/DL (0.70-1.30); GLOMERULAR FILTRATION RATE 41.8 (>35); GLUCOSE, FASTING 103 MG/DL (70-100); POTASSIUM SERUM 5.3 MEQ/L (3.5-5.1); SODIUM LEVEL 140 MEQ/L (136-145)
[2019-05-07 13:45] LABS: CALCIUM LEVEL 8.6 MG/DL (8.8-10.2); CK-MB VALUE MASS < 1.0 NG/ML (<3.6); CPK CREATINE PHOSPHOKINASE 43 U/L (39-308); MB/CK RELATIVE INDEX 2.32 (< OR =4)
[2019-05-07 13:46] LABS: TROPONIN I < 0.02 NG/ML (< 0.10)
[2019-05-07] MEDS ORDERED: MOM 30ML SUSPENSION UDC PO PRN (14:45)
[2019-05-07] MEDS ORDERED: METO1TAB32 PO (14:54)
[2019-05-07] MEDS ORDERED: ESOM0.1C PO (14:54)
[2019-05-07] MEDS ORDERED: ROSU20TA5 PO (14:54)
[2019-05-07] MEDS ORDERED: LEVO125T4 PO (14:54)
[2019-05-07] MEDS ORDERED: ALBUTEROL SULFATE 2.5 MG/0.5 ML INH NEB SOLN INH PRN (15:00)
[2019-05-07] MEDS ORDERED: NS 1,000 ML IV SCH (16:00)
[2019-05-07] MEDS: ROSUVASTATIN 10 MG TAB (CRESTOR) PO SCH (16:31)
[2019-05-07] MEDS: CETIRIZINE (ZyrTEC) 10 MG TAB PO SCH (16:31)
[2019-05-07 16:33] LABS: MAGNESIUM LEVEL 1.8 MG/DL (1.8-2.4)
--- NOTE | 2019-05-07 16:43 | HPEPDOC ---
General Date of Admission May 07, 2019 at 15:02 Date of Service: May 07, 2019 Primary Care Physician: Josefa Mesa Attending Physician: SHANTANU CLINE MD Chief Complaint The patient is a 89-year-old male admitted with a reason for visit of Transient Hypotension. History of Present Illness HPI: 89-year-old male with significant past medical history as noted below brought in to the ER via ambulance after he felt very weak shopping earlier today. He reports he usually feels weak when waking up, however it usually improves throughout the day. However today, weakness has been gradually worsening. Denies any loss of consciousness or any other symptoms. Denies chest pain, shortness of breath, nausea, vomiting, blurred vision, paresthesias. States his oral intake has been stable without any changes. Per report, systolic BP obtained by EMS was in the 70s. They gave him IV fluids, and he improved to systolic in the 90s upon arrival to the ER. Per reports, he was pale and ill-appearing, however not tachycardic. Ultimately his blood pressure gradually improved to now hypertensive in the 160s over 90s without any additional intervention in the ER. Of note, he was also found to have a bifascicular block on EKG: Sinus rhythm with RBBB and LAFB. This was present when compared to 10/2018 EKG, but does not appear he had any intervention. In ER, he was also found to have hemoglobin of 8.6, with his baseline 10-11. He was heme-negative in the ER. Also found to have slightly elevated creatinine 1.66, with baseline 1.3. Potassium also elevated at 5.3. At time of admission, he states he feels much improved and almost back to his baseline. Denies any symptoms currently. Denies any recent changes in meds, travel, sick contacts. Of note, he was recently discharged from [facility] for Pseudomonas pneumonia about one month ago, and a few months prior to that, was found to have ischemic bowel, requiring grafting of the SMA. He will be admitted for further workup and monitoring. 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 Admits lightheadedness. Denies vertigo GI: Denies nausea, vomiting, abdominal pain, melena, hematochezia : Denies hematuria MSK: Denies new pains or joint swelling Neurologic: Denies new numbness/tingling PHYSICAL: General exam: A&Ox3, NAD, resting comfortably, speaking full sentences HEENT: NCAT, EOMI, MMM, no JVD, neck supple, no scleral icterus Cardiac: distant sounds, RRR, no appreciable murmurs Respiratory: squeaking in right lower chest wall. Clear in remaining brown. No accessory muscle use Abdomen: soft, NT, ND, normoactive bowel sounds Extremity: 2+ radial and dorsalis pedis pulses, no edema or calf tenderness Skin: [place], warm, dry, no visible rash. No jaundice or pallor Msk: strength 5/5 x4, normal tone Neuro: normal speech, no focal deficits Psych: Normal mood and affect LABORATORY DATA, MICROBIOLOGY: Please see below. IMAGING STUDIES: CXR: No acute cardiopulmonary process. ASSESSMENT AND PLAN: This is a 89-year-old male with history of MN s/p stent and CABG, severe peripheral vascular disease, lung and testicular cancer s/p surgical resection, CLL, COPD intermittently on 2 L nasal cannula, CKD3 with chronic anemia, brought in to hospital after an episode of generalized weakness and presyncope, and found to have systolic BP 70s, responded well to fluids, found to have bifascicular block. 1. Generalized weakness/presyncope: * Likely 2/2 hypotensive episode with SBP in the 70s. Responded well to IV fluids, is actually now hypertensive in the ER with almost full resolution of symptoms. Initial cardiac markers negative. Repeat cardiac markers pending. Orthostatics ordered. Unlikely infectious source given lack of infectious etiology and history. EKG reveals bifascicular block: RBBB and LAFB . This was also present on 10/2018 EKG, but it does not appear any intervention was done. Cannot rule out cardiac cause of syncope at this point. Monitor on telemetry and echo is ordered. * Hold antihypertensives currently and monitor BP. * PT/OT ordered. 2. Bifascicular block: * Per our EKGs, this dates back years. It does not appear he has had any intervention or workup for this thus far, and patient is not aware of the blocks. Case was discussed with Dr. Wyman, who stated pacemaker is not needed at this point as there is no documented complete heart block, and that his symptoms are more attributable to his hypotension, especially in light of his heart rate maintaining normal sinus on admission and the bifascicular block being chronic. Per his recommendations, patient should follow-up outpatient with his normal dispatcher maintenance, Dr. Lombardo, and no intervention needed at this point. * Echo ordered, continue monitoring on telemetry. Repeat cardiac markers ordered. 3. Hyperkalemia: * K = 5.3, pt asymptomatic. Monitor on tele at this point. Gentle IVF. Repeat lab pending overnight. 4. Elevated creatinine: * Baseline CR. To be around 1.3. 1.66 on admission, likely prerenal given his hypovolemic state. Patient does have CK D3 at baseline, follows with Dr. Ryan. Gentle IV fluids and repeat labs. Hold nephrotoxins. 5. Lactic acidosis: * Likely 2/2 hypovolemic state. No infectious source suspected currently. Patient does not appear septic. Four hour follow-up pending. Continue IV fluids and monitor blood pressure. 6. Leukocytosis: * May be reactionary to his presyncopal episode. He denies any fever, chills, recent illness, sick contacts, and all other ROS. Hold antibiotics for now and reassess on repeat labs. Blood cultures ordered. 7. Chronic anemia: * Multifactorial-iron deficiency on prior workup, as well as chronic renal insufficiency. Per reports, he has not tolerated when necessary supplements and receives IV infusions as needed. Hemoglobin currently 8.6 with baseline being 9-11. No melena, hematochezia, hematuria, hemoptysis. He does have a history of upper GI bleed with Antunez's esophagitis. Continue PPI and monitor. Currently, no suspected acute bleed. He was heme-negative per ER reports. Monitor and transfuse as needed to maintain hemoglobin above 8. For his remaining chronic medical conditions, continue medications. DVT prophylaxis: Heparin SC CODE: FULL CODE, pt verbalized yes to CPR & intubation HCP: great granddaughter DISPOSITION: Admit to hospitalist service, monitor on telemetry. Will require >2 midnights. Home Medications Scheduled Allopurinol (Zyloprim) 300 Mg Tab, 150 MG PO DAILY, (Reported) Cetirizine HCl (Cetirizine HCl) 10 Mg Tablet, 10 MG PO DAILY, (Reported) Esomeprazole Magnesium (Esomeprazole Magnesium) 20 Mg Capsule.dr, 20 MG PO BID, (Reported) Levothyroxine Sodium (Levothyroxine Sodium) 125 Mcg Tablet, 125 MCG PO DAILY, (Reported) Metoprolol Succinate (Metoprolol Succinate) 25 Mg Tab.er.24h, 25 MG PO DAILY, (Reported) Rosuvastatin Calcium (Rosuvastatin Calcium) 20 Mg Tablet, 20 MG PO DAILY, (Reported) Scheduled PRN Albuterol Sulf (Albuterol Sulfate) 2.5 Mg/3 Ml Nebu, 2.5 MG INH Q4H PRN for SHORTNESS OF BREATH, (Reported) Albuterol Sulfate (Ventolin Hfa) 108 Mcg/Act Aer, 2 PUFFS INH Q4H PRN for SHORTNESS OF BREATH, (Reported) Nitroglycerin (Nitrostat) 0.4 Mg Subl, 0.4 MG SL Q5MP PRN for CHEST PAIN, (Reported) Allergies Coded Allergies: ascorbic acid (Verified Adverse Reaction, Unknown, VIT C- NAUSEA, 03/21/19) iron (Verified Adverse Reaction, Unknown, MADE "SICKER THAN A DOG", 03/21/19) A-FIB/CHADSVASC A-FIB History Current/History of A-Fib/PAF?: No Current PO Anticoag Therapy: No Vital Signs Vital Signs Date Time Temp Pulse Resp B/P (MAP) Pulse Ox O2 Delivery O2 Flow Rate FiO2 05/07/19 14:21 68 18 160/76 (104) 100 Room Air 05/07/19 12:35 98.4 Laboratory Data Labs 24H Laboratory Tests 2 05/07/19 12:26: Anion Gap 9, Glomerular Filtration Rate 41.8, Calcium Level 8.6L, Total Creatine Kinase 43, Creatine Kinase MB < 1.0, Creatine Kinase MB Relative Index 2.32, Troponin I < 0.02 05/07/19 12:37: Immature Granulocyte % (Auto) 3.0, Neutrophils (%) (Auto) 75.3H, Lymphocytes (%) (Auto) 10.0L, Monocytes (%) (Auto) 9.3H, Eosinophils (%) (Auto) 1.7, Basophils (%) (Auto) 0.7, Neutrophils # (Auto) 9.7H, Lymphocytes # (Auto) 1.3L, Monocytes # (Auto) 1.2H, Eosinophils # (Auto) 0.2, Basophils # (Auto) 0.1, Nucleated Red Blood Cells % (auto) 0.0, Prothrombin Time 14.3H, Prothromb Time International Ratio 1.13, Activated Partial Thromboplast Time 30.7 05/07/19 12:38: CBC/BMP Laboratory Tests 05/07/19 12:26 05/07/19 12:37 Plan / VTE VTE Prophylaxis Ordered?: Yes GME ATTESTATION GME ATTESTATION My faculty preceptor for this patient encounter was physically present during the encounter and was fully available. All aspects of the patient interview, examination, medical decision making process, and medical care plan development were reviewed and approved by the faculty preceptor. The faculty preceptor is aware and concurs with the plan as stated in the body of this note and will attest to such by his/her cosignature. COURTNEY WALDROP DO May 07, 2019 16:43
[2019-05-07 20:04] LABS: BLOOD UREA NITROGEN 26 MG/DL (7-18); CALCIUM LEVEL 8.3 MG/DL (8.8-10.2); CARBON DIOXIDE LEVEL 24 MEQ/L (21-32); CHLORIDE LEVEL 108 MEQ/L (98-107); CREATININE FOR GFR 1.71 MG/DL (0.70-1.30); GLOMERULAR FILTRATION RATE 40.4 (>35); GLUCOSE, FASTING 124 MG/DL (70-100); POTASSIUM SERUM 4.4 MEQ/L (3.5-5.1); SODIUM LEVEL 139 MEQ/L (136-145)
[2019-05-07 20:05] LABS: CK-MB VALUE MASS < 1.0 NG/ML (<3.6); CPK CREATINE PHOSPHOKINASE 11 U/L (39-308); MB/CK RELATIVE INDEX 9.09 (< OR =4); TROPONIN I < 0.02 NG/ML (< 0.10)
[2019-05-07] MEDS: OMEPRAZOLE 20 MG CAP PO SCH (20:26)
[2019-05-07] MEDS: HEPARIN SOD (PORCINE) 5000 UNITS/ML VIAL SC SCH (20:26)
--- NOTE | 2019-05-07 22:58 | ECHO ---
DATE OF PROCEDURE: 05/07/2019 Date of : 1930 Age: 89 REFERRING PHYSICIAN: Mau Flores MD PATIENT LOCATION: ED, room 2 REASON FOR ECHOCARDIOGRAM: Syncope. 2D MEASUREMENTS: IVS: 1.2 cm LV: 4.3 cm LVPW: 1.2 cm LA: 3.1 cm Aorta: 3.1 cm DOPPLER MEASUREMENTS: Peak velocity across the aortic valve: 0.93 m/s Peak velocity across the LVOT: 0.67 m/s Mitral E: 0.50, Mitral A: 0.95 with a ratio of 0.5 2D COMMENTS: 1. Technically limited study due to poor acoustic window. 2. Normal left ventricular size with normal left ventricular wall thickness, but a moderately depressed global left ventricular systolic function. There was diffuse global hypokinesis and the estimated left ventricular systolic ejection fraction is 30-35%. 3. Normal left atrium. Normal right atrium and right ventricle noted in limited views. 4. The atrial septum appeared to be normal without evidence of defect or shunt. 5. Normal aortic root. 6. A small pericardial effusion was noted around the heart, no evidence of cardiac tamponade. 7. Mildly calcified aortic valve with normal leaflet excursion. Mildly calcified mitral annulus with normal anterior mitral valve leaflet motion. Normal tricuspid valve. The pulmonic valve and proximal pulmonary artery branches were not well visualized. 8. The inferior vena cava was not visualized. DOPPLER: No significant valvular abnormalities detected. Abnormal relaxation pattern was noted across the mitral valve leaflets as well as the mitral valve annulus consistent with features of grade 1 left ventricular diastolic dysfunction. IMPRESSION 1. Moderate global left ventricular systolic dysfunction with diffuse hypokinesis. There are some features of grade 1 left ventricular diastolic dysfunction manifested by abnormal relaxation. 2. Aortic valve sclerosis without stenosis or aortic regurgitation. 3. Isolated mitral annulus calcification. 4. A small pericardial effusion was noted, no evidence of cardiac tamponade. 5. No significant valvular heart disease detected.
[2019-05-08] VITALS (11 sets, daily range): BP systolic 129–185; BP diastolic 72–90
[2019-05-08 02:12] LABS: CK-MB VALUE MASS < 1.0 NG/ML (<3.6); CPK CREATINE PHOSPHOKINASE 8 U/L (39-308); TROPONIN I < 0.02 NG/ML (< 0.10)
[2019-05-08] MEDS ORDERED: LEVOTHYROXINE 100MCG TABLET (0.1MG) PO SCH (06:00)
[2019-05-08] MEDS ORDERED: LEVOTHYROXINE 125MCG TABLET (0.125MG) PO SCH (06:00)
[2019-05-08 07:17] LABS: HEMOGLOBIN 7.1 g/dl (13.5-17.5); MEAN CORPUSCULAR HGB CONC 29.6 g/dl (32.0-36.5); PLATELET COUNT, AUTOMATED 219 10^3/uL (150-450); RED BLOOD COUNT 2.45 10^6/uL (4.30-6.10); WHITE BLOOD COUNT 6.9 10^3/uL (4.0-10.0)
[2019-05-08 08:05] LABS: CALCIUM LEVEL 7.5 MG/DL (8.8-10.2); CREATININE FOR GFR 1.62 MG/DL (0.70-1.30); FREE T4 0.96 NG/DL (0.76-1.46); POTASSIUM SERUM 4.6 MEQ/L (3.5-5.1)
[2019-05-08] MEDS ORDERED: hydroCHLOROthiazide 12.5 MG CAPSULE PO SCH (09:00)
[2019-05-08] MEDS ORDERED: amLODIPine 5 MG TAB PO SCH (09:00)
[2019-05-08] MEDS: ROSUVASTATIN 10 MG TAB (CRESTOR) PO SCH (09:30)
[2019-05-08] MEDS: CETIRIZINE (ZyrTEC) 10 MG TAB PO SCH (09:32)
[2019-05-08] MEDS: HEPARIN SOD (PORCINE) 5000 UNITS/ML VIAL SC SCH (09:32)
[2019-05-08] MEDS: OMEPRAZOLE 20 MG CAP PO SCH ×2 (09:32→21:52)
[2019-05-08] MEDS: allopurinoL 300 MG TAB PO SCH (09:32)
[2019-05-08] MEDS ORDERED: amLODIPine 5 MG TAB PO ONE (14:00)
--- NOTE | 2019-05-08 17:40 | IPNPDOC ---
Text Note Date of Service The patient was seen on 05/08/19. NOTE S: Pt examined at bedside, lutz in ER. Has no complaints and feels back to normal. "I feel like a whole new man." No f/c/lightheadedness/dizziness/cp. BP has been maintaining well without any low readings. PE: General exam: A&Ox3, NAD, resting comfortably, speaking full sentences, more interactive today HEENT: NCAT, EOMI, MMM, no JVD, neck supple, no scleral icterus Cardiac: distant sounds, RRR, no appreciable murmurs Respiratory: Diminished throughout. Clear in all lung brown. No accessory muscle use Abdomen: soft, NT, ND, normoactive bowel sounds Extremity: 2+ radial and dorsalis pedis pulses, no edema or calf tenderness Skin: [place], warm, dry, no visible rash. No jaundice or pallor Msk: strength 5/5 x4, normal tone Neuro: normal speech, no focal deficits Psych: Normal mood and affect ASSESSMENT AND PLAN: This is a 89-year-old male with history of [place] s/p stent and CABG, severe peripheral vascular disease, lung and testicular cancer s/p surgical resection, CLL, COPD intermittently on 2 L nasal cannula, CKD3 with chronic anemia, brought in to hospital after an episode of generalized weakness and presyncope, and found to have systolic BP 70s, responded well to fluids, found to have bifascicular block. 1. Generalized weakness/presyncope: * Resolved with supportive care s/p IVF & bp control * Likely 2/2 hypotensive episode with SBP in the 70s per EMS. Now actually hypertensive-asymptomatic. Will restart bp meds-avoid nephrotoxins. * Cardiac markers negative x3. Orthostatics neg. No infectious source. * EKG reveals bifascicular block: RBBB and LAFB . This appears chronic dating back years. 05/07/19 echo: EF 30-35, grade 1 diastolic dysfunction. Continue monitoring on tele. Less likely cardiac * PT/OT ordered. 2. Bifascicular block: * Per our EKGs, this dates back years. It does not appear he has had any inter vention or workup for this thus far, and patient is not aware of the blocks. Case was discussed with Dr. Wyman on adsmission, who stated pacemaker is not needed at this point as there is no documented complete heart block, and that his symptoms are more attributable to his hypotension, especially in light of his heart rate maintaining normal sinus on admission and the bifascicular block being chronic. Per his recommendations, patient should follow-up outpatient with his normal informatics consultant, Dr. Lombardo, and no intervention needed at this point. Relayed to pt. * Echo ordered: 1. Moderate global left ventricular systolic dysfunction with diffuse hypokinesis. There are some features of grade 1 left ventricular diastolic dysfunction manifested by abnormal relaxation. 2. Aortic valve sclerosis without stenosis or aortic regurgitation. 3. Isolated mitral annulus calcification. 4. A small pericardial effusion was noted, no evidence of cardiac tamponade. 5. No significant valvular heart disease detected. 3. Hyperkalemia: * Resolved from 5.3 to 4.4 with supportive care s/p gentle IVF. Pt asymptomatic. On telemetry 4. Elevated creatinine: * Baseline CR ~1.3. [place] ~1.6, likely prerenal given his hypovolemic state. Patient does have CK D3 at baseline, follows with Dr. Ryan. S/p gentle IV fluids. Hold nephrotoxins. Repeat in am. 5. Lactic acidosis: * Resolved with supportive care s/p IVF * Likely 2/2 hypovolemic state. No infectious source suspected 6. Leukocytosis: * Resolved with supportive care. Like was reactionary to his presyncopal episode * no signs of infection. Blood cultures negative 7. Acute on Chronic anemia: * Decreased from 8.6 on admission to 7.1 this morning. No bleed. Denies melena, hematochezia, hematemesis, hematuria. He is anemic at baseline hemoglobin 9- 11. * Risk, benefits, alternatives scopes with patient. He is agreeable to transfusion. Consent in chart, 2 units ordered. Repeat H&H pending. Monitor and transfuse as needed to maintain hemoglobin above 8. * Multifactorial: iron deficiency on 05/01/2019 workup + chronic renal insufficiency. Per reports, he has not tolerated po supplement and receives IV infusions as needed. He does have a history of upper GI bleed with Antunez's esophagitis. Continue PPI and monitor. Currently, no suspected acute bleed. He was heme-negative per ER reports. 8. Hypothyroidism * Patient only takes 125mcg Synthroid at home. TSH 15, normal T4, similar to 10/2018 * Patient symptomatic. 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 Hold AC given anemia CODE: FULL CODE, pt verbalized yes to CPR & intubation HCP: great granddaughter DISPOSITION: Monitor on telemetry & H&H. PT/OT. VS,Fishbone, I+O VS, Fishbone, I+O Laboratory Tests 05/07/19 19:15 05/08/19 06:50 Vital Signs Date Time Temp Pulse Resp B/P (MAP) Pulse Ox O2 Delivery O2 Flow Rate FiO2 05/08/19 16:00 2.0 05/08/19 15:36 98.4 70 20 129/80 95 Nasal Cannula I&O- Last 24 Hours up to 6 AM 05/08/19 06:00 Intake Total 105 ml Output Total 430 ml Balance -325 ml GME ATTESTATION GME ATTESTATION My faculty preceptor for this patient encounter was physically present during the encounter and was fully available. All aspects of the patient interview, examination, medical decision making process, and medical care plan development were reviewed and approved by the faculty preceptor. The faculty preceptor is aware and concurs with the plan as stated in the body of this note and will attest to such by his/her cosignature. COURTNEY WALDROP DO May 08, 2019 17:40
[2019-05-08 17:48] LABS: HEMATOCRIT 35.8 % (42.0-52.0)
[2019-05-08 17:49] LABS: HEMOGLOBIN 11.1 g/dl (13.5-17.5)
--- NOTE | 2019-05-08 17:52 | ECGEPIP ---
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
[2019-05-09] VITALS (8 sets, daily range): BP systolic 127–166; BP diastolic 60–78
[2019-05-09 00:12] LABS: HEMATOCRIT 33.1 % (42.0-52.0); HEMOGLOBIN 10.7 g/dl (13.5-17.5)
[2019-05-09] MEDS: LEVOTHYROXINE 137MCG TABLET (0.137MG) PO SCH (05:22)
[2019-05-09 05:56] LABS: HEMATOCRIT 38.8 % (42.0-52.0); HEMOGLOBIN 11.3 g/dl (13.5-17.5); MEAN CORPUSCULAR HGB CONC 29.1 g/dl (32.0-36.5); MEAN CORPUSCULAR VOLUME 102.9 fl (80.0-96.0); PLATELET COUNT, AUTOMATED 190 10^3/uL (150-450); RED BLOOD COUNT 3.77 10^6/uL (4.30-6.10); WHITE BLOOD COUNT 9.5 10^3/uL (4.0-10.0)
[2019-05-09 06:23] LABS: CALCIUM LEVEL 8.6 MG/DL (8.8-10.2); CREATININE FOR GFR 1.55 MG/DL (0.70-1.30); GLOMERULAR FILTRATION RATE 45.3 (>35); POTASSIUM SERUM 4.7 MEQ/L (3.5-5.1)
[2019-05-09] MEDS: ROSUVASTATIN 10 MG TAB (CRESTOR) PO SCH (09:15)
[2019-05-09] MEDS: amLODIPine 10 MG TAB PO SCH (09:15)
[2019-05-09] MEDS: ACETAMINOPHEN TAB 650MG DOSE (2X325MG) PO PRN ×2 (09:15→22:32)
[2019-05-09] MEDS: OMEPRAZOLE 20 MG CAP PO SCH ×2 (09:16→20:06)
[2019-05-09] MEDS: CETIRIZINE (ZyrTEC) 10 MG TAB PO SCH (09:16)
[2019-05-09] MEDS: allopurinoL 300 MG TAB PO SCH (09:16)
--- NOTE | 2019-05-09 19:01 | IPNPDOC ---
Text Note Date of Service The patient was seen on 05/09/19. NOTE S: Pt examined at bedside. Feels well and has no complaints. Feels almost back to normal. No f/c/n/v/dizziness. BP better today. Hgb remaining stable. PE: General exam: A&Ox3, NAD, resting comfortably, speaking full sentences HEENT: NCAT, EOMI, MMM, no JVD, neck supple, no scleral icterus Cardiac: distant sounds, RRR, no appreciable murmurs Respiratory: Diminished throughout. Clear in all lung brown. No accessory muscle use Abdomen: soft, NT, ND, normoactive bowel sounds Extremity: 2+ radial and dorsalis pedis pulses, no edema or calf tenderness Skin: [place], warm, dry, no visible rash. No jaundice or pallor Msk: strength 5/5 x4, normal tone Neuro: normal speech, no focal deficits Psych: Normal mood and affect ASSESSMENT AND PLAN: This is a 89-year-old male with history of [place] s/p stent and CABG, severe peripheral vascular disease, lung and testicular cancer s/p surgical resection, CLL, COPD intermittently on 2 L nasal cannula, CKD3 with chronic anemia, brought in to hospital after an episode of generalized weakness and presyncope, and found to have systolic BP 70s, responded well to fluids, found to have bifascicular block. 1. Generalized weakness/presyncope: * Resolved with supportive care s/p IVF & bp control * Likely 2/2 hypotensive episode with SBP in the 70s per EMS. No further episodes of hypotension. BP meds restarted * Cardiac markers negative x3. Orthostatics neg. No infectious source. * EKG reveals bifascicular block: RBBB and LAFB . This appears chronic dating back years. 05/07/19 echo: EF 30-35, grade 1 diastolic dysfunction. Continue monitoring on tele. * PT/OT ordered. 2. Bifascicular block: * Per our EKGs, this dates back years. It does not appear he has had any intervention or workup for this thus far, and patient is not aware of the blocks. Case was discussed with Dr. Wyman on adsmission, who stated pacemaker is not needed at this point as there is no documented complete heart block, and that his symptoms are more attributable to his hypotension, especially in light of his heart rate maintaining normal sinus on admission and the bifascicular block being chronic. Per his recommendations, patient should follow-up outpatient with his normal report clerk, Dr. Lombardo, and no intervention needed at this point. Relayed to pt. * Echo ordered: 1. Moderate global left ventricular systolic dysfunction with diffuse hypokinesis. There are some features of grade 1 left ventricular diastolic dysfunction manifested by abnormal relaxation. 2. Aortic valve sclerosis without stenosis or aortic regurgitation. 3. Isolated mitral annulus calcification. 4. A small pericardial effusion was noted, no evidence of cardiac tamponade. 5. No significant valvular heart disease detected. 3. Hyperkalemia: * Resolved from 5.3 to 4.4 with supportive care s/p gentle IVF. Pt asymptomatic. On telemetry 4. Elevated creatinine: * Baseline CR ~1.3. Improving down to 1.5 today, likely prerenal given his hypovolemic state. Patient does have CK D3 at baseline, follows with Dr. Ryan. S/p gentle IV fluids. Hold nephrotoxins. Monitor 5. Acute on Chronic anemia: * Decreased from 8.6 on admission to 7.1 this morning. No bleed. Denies melena, hematochezia, hematemesis, hematuria. He is anemic at baseline hemoglobin 9- 11. * Risk, benefits, alternatives scopes with patient. He is agreeable to trans fusion. Consent in chart, 2 units ordered. Repeat H&H pending. Monitor and transfuse as needed to maintain hemoglobin above 8. * Multifactorial: iron deficiency on 05/01/2019 workup + chronic renal ins ufficiency. Per reports, he has not tolerated po supplement and receives IV infusions as needed. He does have a history of upper GI bleed with Antunez's esophagitis. Continue PPI and monitor. Currently, no suspected acute bleed. He was heme-negative per ER reports. 6. Hypothyroidism * Patient only takes 125mcg Synthroid at home. TSH 15, normal T4, similar to 10/2018 * Patient symptomatic. 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 Hold AC given anemia CODE: FULL CODE, pt verbalized yes to CPR & intubation HCP: great granddaughter DISPOSITION: Monitor on telemetry & H&H. PT/OT. VS,Fishbone, I+O VS, Fishbone, I+O Laboratory Tests 05/08/19 23:56 05/09/19 05:39 Vital Signs Date Time Temp Pulse Resp B/P (MAP) Pulse Ox O2 Delivery O2 Flow Rate FiO2 05/09/19 12:00 98.8 72 17 132/60 (84) 98 Room Air 05/09/19 00:00 2.0 I&O- Last 24 Hours up to 6 AM 05/09/19 06:00 Intake Total 812 ml Output Total 900 ml Balance -88 ml GME ATTESTATION GME ATTESTATION My faculty preceptor for this patient encounter was physically present during the encounter and was fully available. All aspects of the patient interview, examination, medical decision making process, and medical care plan development were reviewed and approved by the faculty preceptor. The faculty preceptor is aware and concurs with the plan as stated in the body of this note and will attest to such by his/her cosignature. COURTNEY WALDROP DO May 09, 2019 19:01
[2019-05-10 04:00] VITALS: BP 144/70
[2019-05-10] MEDS: LEVOTHYROXINE 137MCG TABLET (0.137MG) PO SCH (05:33)
[2019-05-10 06:12] LABS: HEMATOCRIT 33.5 % (42.0-52.0); HEMOGLOBIN 10.4 g/dl (13.5-17.5); MEAN CORPUSCULAR HEMOGLOBIN 29.3 pg (27.0-33.0); MEAN CORPUSCULAR VOLUME 94.4 fl (80.0-96.0); PLATELET COUNT, AUTOMATED 178 10^3/uL (150-450); RED BLOOD COUNT 3.55 10^6/uL (4.30-6.10); WHITE BLOOD COUNT 9.4 10^3/uL (4.0-10.0)
[2019-05-10 06:34] LABS: CALCIUM LEVEL 7.9 MG/DL (8.8-10.2); CREATININE FOR GFR 1.47 MG/DL (0.70-1.30); GLOMERULAR FILTRATION RATE 48.1 (>35); POTASSIUM SERUM 4.4 MEQ/L (3.5-5.1)
[2019-05-10 08:00] VITALS: BP 143/67
[2019-05-10 08:47] VITALS: BP 144/70
[2019-05-10] MEDS: ROSUVASTATIN 10 MG TAB (CRESTOR) PO SCH (08:47)
[2019-05-10] MEDS: OMEPRAZOLE 20 MG CAP PO SCH (08:47)
[2019-05-10] MEDS: CETIRIZINE (ZyrTEC) 10 MG TAB PO SCH (08:47)
[2019-05-10] MEDS: amLODIPine 10 MG TAB PO SCH (08:47)
[2019-05-10] MEDS: allopurinoL 300 MG TAB PO SCH (08:48)
[2019-05-10] MEDS ORDERED: SYNT137T7 PO (09:44)
[2019-05-10] MEDS ORDERED: METO1TAB32 PO (09:44)
--- NOTE | 2019-05-10 09:57 | DS.PDOC ---
Discharge Summary General Date of Admission May 07, 2019 at 15:02 Date of Discharge 05/10/2019 Primary Care Physician: Josefa Mesa Attending Physician: SHANTANU CLINE MD Discharge Summary PROCEDURES PERFORMED DURING STAY: 2D-echo, 2U PRC transfused DISCHARGE DIAGNOSES: 1. Generalized weakness/presyncope 2. Bifascicular block, chronic 3. Hyperkalemia, resolved 4. Elevated creatinine 5. Acute on Chronic anemia 6. Hypothyroidism, uncontrolled 7. 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 He reports he usually feels weak when waking up, however it usually improves throughout the day. However today, weakness has been gradually worsening. Denies any loss of consciousness or any other symptoms. Denies chest pain, shortness of breath, nausea, vomiting, blurred vision, paresthesias. States his oral intake has been stable without any changes. Per report, systolic BP obtained by EMS was in the 70s. They gave him IV fluids, and he improved to systolic in the 90s upon arrival to the ER. Per reports, he was pale and ill-appearing, however not tachycardic. Ultimately his blood pressure gradually improved to now hypertensive in the 160s over 90s without any additional intervention in the ER. Of note, he was also found to have a bifascicular block on EKG: Sinus rhythm with RBBB and LAFB. This was present when compared to 10/2018 EKG, but does not appear he had any intervention. In ER, he was also found to have hemoglobin of 8.6, with his baseline 10-11. He was heme-negative in the ER. Also found to have slightly el evated creatinine 1.66, with baseline 1.3. Potassium also elevated at 5.3. At time of admission, he states he feels much improved and almost back to his baseline. Denies any symptoms currently. Denies any recent changes in meds, travel, sick contacts. Of note, he was recently discharged from [place] for Pseudomonas pneumonia about one month ago, and a few months prior to that, was found to have ischemic bowel, requiring grafting of the SMA. He will be admitted for further workup and monitoring. HOSPITAL COURSE: Pt was admitted, given IVF hydration with close watch of bp & monitored on tele. No events on tele. The day after admission, Hgb went from 8.6 to 7.1. Consent obtained and pt transfused 2U PRBC, after which he felt much improved. Potassium improved with supportive care. Pt had no episodes of complete block on tele or any complications during stay. Spoke with Dental Scheduler Dr. Wyman regarding pre/syncopal episodes with hx of bifascicular block, and per Cardio: nothing to do currently, unless pt has documented complete heart block; should f/u o/p with his regular Cardio. Pt cleared PT & OT, and requested to go home, here he lives with support of great granddaughter and her fiance. Medically stable and was informed to follow up with his PCP & Cardio within 1 week of d/c. Of note, during stay, TSh 15. Also notd to be around this range in 10/2018. Dose of Synthroid increased to 137mcg on d/c, and his bp med reduced in half to prevent further hypotensive episodes. All qs answered. DISCHARGE MEDICATIONS: Please see below. ALLERGIES: Please see below. PHYSICAL EXAMINATION ON DISCHARGE: VITAL SIGNS: Please see below. General exam: A&Ox3, NAD, resting comfortably, speaking full sentences HEENT: NCAT, EOMI, MMM, no JVD, neck supple, no scleral icterus Cardiac: distant sounds, RRR, no appreciable murmurs Respiratory: Diminished throughout. Clear in all lung brown. No accessory muscle use Abdomen: soft, NT, ND, normoactive bowel sounds Extremity: 2+ radial and dorsalis pedis pulses, no edema or calf tenderness Skin: [place], warm, dry, no visible rash. No jaundice or pallor Msk: strength 5/5 x4, normal tone Neuro: normal speech, no focal deficits Psych: Normal mood and affect LABORATORY DATA: Please see below. IMAGING: * 05/07/19 CXR: No acute cardiopulmonary process. * 05/07/19 2D echo: 1. Moderate global left ventricular systolic dysfunction with diffuse hypokinesis. There are some features of grade 1 left ventricular diastolic dysfunction manifested by abnormal relaxation. 2. Aortic valve sclerosis without stenosis or aortic regurgitation. 3. Isolated mitral annulus calcification. 4. A small pericardial effusion was noted, no evidence of cardiac tamponade. 5. No significant valvular heart disease detected. PROGNOSIS: good ACTIVITY: As tolerated. DIET: low cholesterol DISPOSITION: home DISCHARGE INSTRUCTIONS: 1. Follow-up with PCP & cardio within a week, Onc 2-3 weeks 2. Return to ER for emergency DISCHARGE CONDITION: Stable. TIME SPENT ON DISCHARGE: Greater than 35 minutes. Vital Signs/I&Os Vital Signs Date Time Temp Pulse Resp B/P (MAP) Pulse Ox O2 Delivery O2 Flow Rate FiO2 05/10/19 08:47 144/70 05/10/19 08:00 97.8 71 16 94 Room Air 05/09/19 00:00 2.0 I&O- Last 24 Hours up to 6 AM 05/10/19 06:00 Intake Total 480 ml Output Total 1475 ml Balance -995 ml Laboratory Data Labs 24H Laboratory Tests 2 05/10/19 05:51: Nucleated Red Blood Cells % (auto) 0.0, Anion Gap 9, Glomerular Filtration Rate 48.1, Calcium Level 7.9L CBC/BMP Laboratory Tests 05/10/19 05:51 Microbiology Microbiology 05/07/19 Blood Culture - Preliminary, Resulted No Growth after 48 hours. All Specime... 05/07/19 Blood Culture - Preliminary, Resulted No Growth after 48 hours. All Specime... Discharge Medications Scheduled Allopurinol (Zyloprim) 300 Mg Tab, 150 MG PO DAILY, (Reported) Cetirizine HCl (Cetirizine HCl) 10 Mg Tablet, 10 MG PO DAILY, (Reported) Esomeprazole Magnesium (Esomeprazole Magnesium) 20 Mg Capsule.dr, 20 MG PO BID, (Reported) Levothyroxine Sodium (Synthroid) 137 Mcg Tablet, 137 MCG PO DAILY@06 Metoprolol Succinate (Metoprolol Succinate) 25 Mg Tab.er.24h, 12.5 MG PO DAILY Rosuvastatin Calcium (Rosuvastatin Calcium) 20 Mg Tablet, 20 MG PO DAILY, (Reported) Scheduled PRN Albuterol Sulf (Albuterol Sulfate) 2.5 Mg/3 Ml Nebu, 2.5 MG INH Q4H PRN for SHORTNESS OF BREATH, (Reported) Albuterol Sulfate (Ventolin Hfa) 108 Mcg/Act Aer, 2 PUFFS INH Q4H PRN for SHOR TNESS OF BREATH, (Reported) Nitroglycerin (Nitrostat) 0.4 Mg Subl, 0.4 MG SL Q5MP PRN for CHEST PAIN, (Reported) Allergies Coded Allergies: ascorbic acid (Verified Adverse Reaction, Unknown, VIT C- NAUSEA, 03/21/19) iron (Verified Adverse Reaction, Unknown, MADE "SICKER THAN A DOG", 03/21/19) GME ATTESTATION GME ATTESTATION My faculty preceptor for this patient encounter was physically present during the encounter and was fully available. All aspects of the patient interview, examination, medical decision making process, and medical care plan development were reviewed and approved by the faculty preceptor. The faculty preceptor is aware and concurs with the plan as stated in the body of this note and will attest to such by his/her cosignature. COURTNEY WALDROP DO May 10, 2019 09:57
== END 2019-05-10 13:25 | disposition home or self-care (01) | DRG 315 ==
LOC: M ED 11:37 → M ED INP 15:02 → M PCU 05-08 11:53
PROVIDERS: ADMIT Internal Medicine; ATTEND Internal Medicine
PROC: 30233N1 Transfusion of Nonautologous Red Blood Cells into Peripheral Vein, Percutaneous Approach (ICD-10-PCS; principal; 2019-05-08)
DX: I95.9 Hypotension, unspecified (principal); I45.2 Bifascicular block; E87.2 Acidosis; I25.10 Atherosclerotic heart disease of native coronary artery without angina pectoris; I25.2 Old myocardial infarction; J44.9 Chronic obstructive pulmonary disease, unspecified; N18.3 Chronic kidney disease, stage 3 (moderate); E03.9 Hypothyroidism, unspecified; I12.9 Hypertensive chronic kidney disease with stage 1 through stage 4 chronic kidney disease, or unspecified chronic kidney disease; R53.1 Weakness; D63.1 Anemia in chronic kidney disease; I73.9 Peripheral vascular disease, unspecified; R55 Syncope and collapse; E87.5 Hyperkalemia; D72.829 Elevated white blood cell count, unspecified; M10.9 Gout, unspecified; K22.70 Barrett's esophagus without dysplasia; Z90.2 Acquired absence of lung [part of]; Z95.5 Presence of coronary angioplasty implant and graft; Z85.118 Personal history of other malignant neoplasm of bronchus and lung; Z85.47 Personal history of malignant neoplasm of testis; Z90.49 Acquired absence of other specified parts of digestive tract; Z95.820 Peripheral vascular angioplasty status with implants and grafts; Z79.899 Other long term (current) drug therapy; Z88.8 Allergy status to other drugs, medicaments and biological substances

== ENCOUNTER → 2019-07-10 | Outpatient (CLI) | payer MEDICARE, OTHER ==
[~2019-07-10] MED LIST changes: +ESOM0.1C PO; +LEVO125T4 PO; +METO1TAB32 PO; +ONDA-83 PO; -ONDA4TAB5 PO; +ROSU20TA5 PO; +SYNT137T7 PO
--- NOTE | 2019-07-10 10:56 | REP ---
RENAL ULTRASOUND: Real-time sonographic evaluation of the kidneys performed. Right kidney is normal in size and echotexture 10.3 x 4.0 x 5.0 cm with no hydronephrosis. A cyst in the upper pole of the right kidney measures 3.2 x 2.8 x 2.9 cm. There is a stent seen in the visualized right renal pelvis. Left kidney is again noted to be atrophic as noted on prior study of 01/06/2019. It is hyperechoic. There is no hydronephrosis or mass. Urinary bladder is empty and demonstrates a Ahumada balloon catheter. IMPRESSION: No hydronephrosis right kidney, with ureteral stent seen in the right renal pelvis. Atrophic left kidney demonstrates no hydronephrosis. Electronically Signed by Dante Edwards MD 07/10/2019 01:04 P
== END ==
LOC: M RAD 09:52
PROVIDERS: ATTEND Nurse Practitioner Family
DX: N13.5 Crossing vessel and stricture of ureter without hydronephrosis (principal); Z96.0 Presence of urogenital implants
CPT/HCPCS: 76775; G0463

== ENCOUNTER 2019-08-08 16:37 | Inpatient (IN) | payer MEDICARE, OTHER ==
[~2019-08-08] VITALS: Ht 175.3 cm; Wt 46.4 kg
[2019-08-08 19:00] VITALS: BP 172/80
--- NOTE | 2019-08-08 20:56 | HPEPDOC ---
[facility] Medical History & Physical Date of Admission Aug 08, 2019 Date of Service: Aug 08, 2019 Attending Physician: NYLA JARQUIN MD History and Physical CHIEF COMPLAINT: Transferred from [facility] for endoscopy HISTORY OF PRESENT ILLNESS: 89-year-old male with extensive past medical history including congestive heart failure, coronary artery disease, COPD, CLL, chronic kidney disease, hypothyroidism and Antunez's esophagus who presents from [facility] for an EGD. Patient has been experiencing decreased appetite, profound weight loss, fatigue and malaise for the past few months, which is why he was admitted to [facility] yesterday. Upper GI series showed a suspicious lesion which may indicate an ulcerated mass requiring further evaluation with an upper endoscopy. Dr. Ivan was consulted by [facility] physician and he has agreed to perform the EGD. Patient is seen on the floor, comfortable, experiencing fatigue and malaise along with mild epigastric pain, no other complaints. He denies any shortness of breath, chest pain, nausea, vomiting, diarrhea or constipation. 10 point review of system is negative except for above PAST MEDICAL HISTORY: 1. COPD. 2. Coronary artery disease. 3. CHF. 4. Hypothyroidism. 5. CLL. 6. Testicular cancer. 7. Antunez's esophagus. 8. Chronic kidney disease PAST SURGICAL HISTORY: 1. Appendectomy. 2. Multiple vascular procedures. SOCIAL HISTORY: Previous heavy smoker, quit many years ago. Track excessive amount of alcohol in the past, quit many years ago. Denies drug use FAMILY HISTORY: Positive for heart disease ALLERGIES: Please see below. HOME MEDICATIONS: Please see below. PHYSICAL EXAMINATION: VITAL SIGNS: Please see below. GENERAL: No distress, frail HEENT: Normocephalic, atraumatic, moist mucous membranes NECK: Supple CARDIOVASCULAR EXAMINATION: S1, S2 RESPIRATORY EXAMINATION: Slightly diminished with poor air movement, no wheezing ABDOMINAL EXAMINATION: Soft, mild epigastric tenderness to palpation, nondistended, positive bowel sounds EXTREMITIES: Range of motion intact SKIN: No rash NEUROLOGICAL EXAMINATION: Alert and oriented 3, no focal deficits PSYCHIATRIC EXAMINATION: Calm and cooperative LABORATORY DATA: See below. IMAGING: Upper GI series performed to [facility] is suspicious for ulcerated stomach mass MICROBIOLOGY: Please see below. ASSESSMENT: 89-year-old male with an extensive medical history is transferred from [facility] requiring an EGD for suspicious ulcerated mass seen on upper GI series. . PLAN: 1. Possible ulcerated stomach mass. Transferred for an EGD, Dr. Birch is aware and will perform the procedure, consultation placed, clear liquid diet for now, Protonix 40 mg twice a day, gentle IV hydration. 2. Acute on chronic kidney disease Creatinine improving with IV hydration, close to baseline, we'll continue gentle IV hydration for now. 3. CHF. Recent echocardiogram showed heart failure with reduced ejection fraction, will monitor fluid status with IV hydration, no signs of fluid overload at this time, clinically appears dry. 4. COPD Stable, continue home regimen. 5. Hypothyroidism. Continue levothyroxine DVT prophylaxis: Heparin subcutaneous GI prophylaxis: Protonix Home Medications Scheduled Allopurinol (Zyloprim) 300 Mg Tab, 150 MG PO DAILY Cetirizine HCl (Cetirizine HCl) 10 Mg Tablet, 10 MG PO DAILY Esomeprazole Magnesium (Esomeprazole Magnesium) 20 Mg Capsule.dr, 20 MG PO BID Levothyroxine Sodium (Synthroid) 137 Mcg Tablet, 137 MCG PO DAILY@06 Metoprolol Succinate (Metoprolol Succinate) 25 Mg Tab.er.24h, 12.5 MG PO DAILY Rosuvastatin Calcium (Rosuvastatin Calcium) 20 Mg Tablet, 20 MG PO DAILY Scheduled PRN Albuterol Sulf (Albuterol Sulfate) 2.5 Mg/3 Ml Nebu, 2.5 MG INH Q4H PRN for SHORTNESS OF BREATH Albuterol Sulfate (Ventolin Hfa) 108 Mcg/Act Aer, 2 PUFFS INH Q4H PRN for SHORTNESS OF BREATH Nitroglycerin (Nitrostat) 0.4 Mg Subl, 0.4 MG SL Q5MP PRN for CHEST PAIN Allergies Coded Allergies: ascorbic acid (Verified Adverse Reaction, Unknown, VIT C- NAUSEA, 03/21/19) iron (Verified Adverse Reaction, Unknown, MADE "SICKER THAN A DOG", 03/21/19) A-FIB/CHADSVASC A-FIB History Current/History of A-Fib/PAF?: No NYLA JARQUIN MD Aug 08, 2019 20:56
[2019-08-08] MEDS: PANTOPRAZOLE 40MG INJ (PROTONIX) (C9113) IV SCH (21:00)
[2019-08-08] MEDS ORDERED: HEPARIN SOD (PORCINE) 5000 UNITS/ML VIAL (J1644 PER 1000UNITS) SC SCH (21:00)
[2019-08-08] MEDS ORDERED: IPRA0.00 INH (21:40)
[2019-08-08] MEDS ORDERED: SUCR1TAB56 PO (21:40)
[2019-08-08] MEDS ORDERED: SYNT125T PO (21:40)
[2019-08-08] MEDS ORDERED: MAG-LIQ2 PO (21:40)
[2019-08-08] MEDS ORDERED: ENOX30IN3 SC (21:40)
[2019-08-08] MEDS ORDERED: ENOX40IN3 SC (21:40)
[2019-08-08] MEDS ORDERED: BUDE0.5S6 INH (21:40)
[2019-08-08] MEDS ORDERED: PANT-23 PO (21:40)
[2019-08-08] MEDS ORDERED: ONDA1INJ2 IJ (21:40)
[2019-08-08] MEDS ORDERED: METO25TA4 PO (21:40)
[2019-08-08] MEDS ORDERED: NS 0.45% 1,000 ML IV SCH (22:45)
[2019-08-09] VITALS (14 sets, daily range): BP systolic 140–180; BP diastolic 61–77
[2019-08-09 05:38] LABS: HEMATOCRIT 23.2 % (42.0-52.0); HEMOGLOBIN 7.3 g/dl (13.5-17.5); MEAN CORPUSCULAR HEMOGLOBIN 30.4 pg (27.0-33.0); MEAN CORPUSCULAR HGB CONC 31.5 g/dl (32.0-36.5); MEAN CORPUSCULAR VOLUME 96.7 fl (80.0-96.0); PLATELET COUNT, AUTOMATED 164 10^3/uL (150-450); WHITE BLOOD COUNT 9.7 10^3/uL (4.0-10.0)
[2019-08-09 06:06] LABS: ALBUMIN 1.8 GM/DL (3.2-5.2); BILIRUBIN,TOTAL 0.1 MG/DL (0.2-1.0); CREATININE FOR GFR 1.58 MG/DL (0.70-1.30); GLOMERULAR FILTRATION RATE 44.3 (>35); MAGNESIUM LEVEL 1.9 MG/DL (1.8-2.4); POTASSIUM SERUM 4.2 MEQ/L (3.5-5.1); TOTAL PROTEIN 5.2 GM/DL (6.4-8.2)
[2019-08-09] MEDS: PANTOPRAZOLE 40MG INJ (PROTONIX) (C9113) IV SCH ×2 (09:03→21:07)
--- NOTE | 2019-08-09 11:03 | CR.PDOC ---
General Surgery Consultation Date of Consultation 08/09/19 History and Physical CONSULT REPORT FOR: hospitalist service REASON FOR CONSULTATION: consideration for UGI endoscopy for abnormal UGIS HISTORY OF PRESENT ILLNESS: Patient is an 89 M transferred from [facility] where he was admitted for weakness and on their workup had a malignant appearing ulcer on the stomach and I am being asked to perform an endoscopy to verify the findings. He has a long standing history of anemia and has had endoscopies done on 2018 and 2019 here in our hospital. PAST MEDICAL HISTORY: 1. . PAST SURGICAL HISTORY: INCLUDES: 1. . PREVIOUS ANESTHESIA REACTIONS: ALLERGIES: Please see below. FAMILY HISTORY: . HOME MEDICATIONS: Please see below. REVIEW OF SYSTEMS: GENERAL: [Denies chills, reports weight gain, reports feeling febrile yesterday]. HEENT: [Denies blurred vision and double vision. Denies ear symptoms. Denies hoarseness]. NECK: Denies any neck pain]. CARDIOVASCULAR: [Denies chest pain and palpitations]. MUSCULOSKELETAL: [Denies arthralgias, back pain and thrombophlebitis]. SKIN: [Denies rash]. NEUROLOGIC: [Denies headache, stroke and transient ischemic attack]. PSYCHIATRIC: [Denies anxiety and depression]. ENDOCRINE: [Denies thyroid disease]. HEMATOLOGY/ONCOLOGY: [Denies bleeding or clotting disorder]. HEART: [Denies any chest pains, palpitations, paroxysmal dyspnea, orthopnea]. PULMONARY: [Denies chronic cough, dyspnea and wheezing]. GASTROINTESTINAL: [Denies rectal bleeding, family history of colon cancer, constipation, diarrhea, dysphagia, heartburn and jaundice]. GENITOURINARY: [Denies dysuria, frequency, hematuria and nocturia]. ENDOCRINE: [Denies polydipsia, polyphagia, polyuria, heat or cold intolerance]. INFECTIOUS: [Denies any recent upper respiratory tract infection, UTI, need for use of antibiotics]. NUTRITION: [Reports good appetite]. PHYSICAL EXAMINATION: VITALS SIGNS: Please see below. GENERAL APPEARANCE:[Patient seen, laying in bed, awake, alert, and oriented. Comfortable, in no acute distress]. SKIN: [Warm and moist]. HEENT: [Normocephalic, atraumatic. Iselin palpebral conjunctiva, anicteric sclerae. Lips and mucosa appear moist]. NECK: [Supple, no thyromegaly. No obvious jugular venous distention]. LUNGS: [Clear to auscultation bilaterally. No wheezing appreciated]. HEART: [No chest wall abnormalities. Regular rate and rhythm with no murmurs appreciated]. ABDOMEN: Abdomen is , soft, . [No hepatosplenomegaly. No umbilical or groin herniations, nondistended. No noticeable rebound or guarding. No grimacing with palpation. No rebound tenderness. No masses appreciated]. EXTREMITIES: [Extremities have no deformities. No edema identified] ANCILLARIES: . LABORATORY DATA: Please see below. IMAGING STUDIES: UGIS at [facility] (08/08/19) i do not have copy of the imaging just the reading Poor motility of te stomach with marked fold thickening suggesting severe underlying gastritis. Suspicion for a lesion and may indicate an ulcerate mass. Moderate hiatal hernia with large amount of gastroesophagel reflux. CT abdomen and pelvis without contrast - again no imaging copy just reading. no acute abdominal or pelvic findings. Stable atrophic left kidney. Stable exophytic right renal cyst. right ureteral stent. No hydronephrosis. IMPRESSION AND PLAN: abnormal imaging UGIS needing visual confirmation with possiblity of malignancy will set him up for upper endoscopy. Vital Signs Vital Signs Date Time Temp Pulse Resp B/P (MAP) Pulse Ox O2 Delivery O2 Flow Rate FiO2 08/09/19 10:40 97.3 73 18 148/66 93 Room Air I&Os I&O- Last 24 Hours up to 6 AM 08/09/19 06:00 Intake Total 350 ml Output Total 225 ml Balance 125 ml Laboratory Data Labs 24H Laboratory Tests 2 08/09/19 05:16: Nucleated Red Blood Cells % (auto) 0.0, Anion Gap 5L, Glomerular Filtration Rate 44.3, Calcium Level 8.0L, Magnesium Level 1.9, Total Bilirubin 0.1L, Aspartate Amino Transf (AST/SGOT) 7, Alanine Aminotransferase (ALT/SGPT) 9L, Alkaline Phosphatase 56, Total Protein 5.2L, Albumin 1.8L, Albumin/Globulin Ratio 0.53L CBC/BMP Laboratory Tests 08/09/19 05:16 Home Medications Scheduled Allopurinol (Zyloprim) 300 Mg Tab, 150 MG PO DAILY, (Reported) Budesonide (Budesonide) 0.5 Mg/2 Ml Ampul.neb, 1 INHALATION INH BID, (Reported) Enoxaparin Sodium (Enoxaparin Sodium) 30 Mg/0.3 Ml Syringe, 30 MG SC Q24H, (Reported) Esomeprazole Magnesium (Esomeprazole Magnesium) 20 Mg Capsule.dr, 20 MG PO BID, (Reported) Levothyroxine Sodium (Synthroid) 125 Mcg Tablet, 125 MCG PO DAILY, (Reported) Mag Hydrox/Aluminum Hyd/Simeth (Mag-Al Plus Xs Suspension) 30 Ml Oral.susp, 30 ML PO TID, (Reported) Metoprolol Tartrate (Metoprolol Tartrate) 25 Mg Tablet, 12.5 MG PO BID, (Reported) Pantoprazole Sodium (Pantoprazole Sodium) 40 Mg Tablet.dr, 40 MG PO DAILY, (Reported) Rosuvastatin Calcium (Rosuvastatin Calcium) 20 Mg Tablet, 20 MG PO DAILY, (Reported) Sucralfate (Sucralfate) 1 Gm Tablet, 1 GM PO BID, (Reported) Scheduled PRN Albuterol Sulf (Albuterol Sulfate) 2.5 Mg/3 Ml Nebu, 2.5 MG INH Q4H PRN for SHORTNESS OF BREATH, (Reported) Ipratropium/Albuterol Sulfate (Iprat-Albut 0.5-3(2.5) mg/3 ml) 3 Ml Ampul.neb, 1 INH INH BID PRN for SOB/WHEEZING, (Reported) Nitroglycerin (Nitrostat) 0.4 Mg Subl, 0.4 MG SL Q5MP PRN for CHEST PAIN, (Reported) Allergies Coded Allergies: ascorbic acid (Verified Adverse Reaction, Unknown, VIT C- NAUSEA, 03/21/19) iron (Verified Adverse Reaction, Unknown, MADE "SICKER THAN A DOG", 03/21/19) ELKIN MARTINEZ MD Aug 09, 2019 11:03
[2019-08-09 15:11] LABS: HEMATOCRIT 27.6 % (42.0-52.0); HEMOGLOBIN 8.6 g/dl (13.5-17.5)
--- NOTE | 2019-08-09 17:36 | IPNPDOC ---
Date Seen The patient was seen on 08/09/19. Progress Note SUBJECTIVE: 89-year-old male with extensive past medical history including congestive heart failure, coronary artery disease, COPD, CLL, chronic kidney disease, hypothyroidism and Antunez's esophagus who presents from [facility] for an EGD. Patient has been experiencing decreased appetite, profound weight loss, fatigue and malaise for the past few months, which is why he was admitted to [place] yesterday. Upper GI series showed a suspicious lesion which may indicate an ulcerated mass requiring further evaluation with an upper endoscopy. Dr. Ivan was consulted by [facility] physician and he has agreed to perform the EGD. Patient is seen on the floor, comfortable, experi encing fatigue and malaise along with mild epigastric pain, no other complaints. He denies any shortness of breath, chest pain, nausea, vomiting, diarrhea or constipation. 08/09/19 Patient comfortable in bed, no acute events overnight, has no complaints at this time. Patient had a significant drop in hemoglobin overnight, scheduled for EGD later today. 10 point review of system is negative except for above PHYSICAL EXAMINATION: VITAL SIGNS: Please see below. GENERAL: No distress, frail HEENT: Normocephalic, atraumatic, moist mucous membranes NECK: Supple CARDIOVASCULAR EXAMINATION: S1, S2 RESPIRATORY EXAMINATION: Slightly diminished with poor air movement, no wheezing ABDOMINAL EXAMINATION: Soft, mild epigastric tenderness to palpation, nondistended, positive bowel sounds EXTREMITIES: Range of motion intact SKIN: No rash NEUROLOGICAL EXAMINATION: Alert and oriented 3, no focal deficits PSYCHIATRIC EXAMINATION: Calm and cooperative LABORATORY DATA: See below. MICROBIOLOGY: Please see below. ASSESSMENT: 89-year-old male with an extensive medical history is transferred from [facility] requiring an EGD for suspicious ulcerated mass seen on upper GI series. . PLAN: 1. Possible ulcerated stomach mass. Scheduled for EGD later today, transfuse 2 units of packed blood cells prior to procedure, nothing by mouth, Protonix 40 mg twice a day. 2. Acute on chronic kidney disease Improved with IV hydration, creatinine close to baseline, discontinue fluids. 3. CHF. Recent echocardiogram showed heart failure with reduced ejection fraction, clinically euvolemic, will monitor. 4. COPD Stable, continue home regimen. 5. Hypothyroidism. Continue levothyroxine DVT prophylaxis: Heparin subcutaneous GI prophylaxis: Protonix VS, I&O, 24H, Fishbone Vital Signs/I&O Vital Signs Date Time Temp Pulse Resp B/P (MAP) Pulse Ox O2 Delivery O2 Flow Rate FiO2 08/09/19 16:35 97.5 63 18 169/73 97 Room Air I&O- Last 24 Hours up to 6 AM 08/09/19 05:59 Intake Total 50 ml Output Total 225 ml Balance -175 ml Laboratory Data 24H LABS Laboratory Tests 2 08/09/19 05:16: Nucleated Red Blood Cells % (auto) 0.0, Anion Gap 5L, Glomerular Filtration Rate 44.3, Calcium Level 8.0L, Magnesium Level 1.9, Total Bilirubin 0.1L, Aspartate Amino Transf (AST/SGOT) 7, Alanine Aminotransferase (ALT/SGPT) 9L, Alkaline Phosphatase 56, Total Protein 5.2L, Albumin 1.8L, Albumin/Globulin Ratio 0.53L CBC/BMP Laboratory Tests 08/09/19 05:16 08/09/19 14:54 NYLA JARQUIN MD Aug 09, 2019 17:36
--- NOTE | 2019-08-09 19:35 | ROOR ---
Patient Name: Yahir Turner Procedure Date: 08/09/2019 5:22 PM Date of : 1930 Age: 89 Gender: Male Note Status: Finalized Procedure: Upper GI endoscopy Indications: Iron deficiency anemia, Abnormal UGI series Providers: Danny Stacy MD Referring MD: 2. Inpatient 2. Inpatient Requesting Provider: Medicines: Monitored Anesthesia Care Complications: No immediate complications. Procedure: Pre-Anesthesia Assessment: - Prior to the procedure, a History and Physical was performed, and patient medications and allergies were reviewed. The patient is competent. The risks and benefits of the procedure and the sedation options and risks were discussed with the patient. All questions were answered and informed consent was obtained. Patient identification and proposed procedure were verified by the physician, the nurse and the legal biller in the procedure room. Mental Status Examination: alert and oriented. Airway Examination: normal oropharyngeal airway and neck mobility. Respiratory Examination: clear to auscultation. CV Examination: normal. Prophylactic Antibiotics: The patient does not require prophylactic antibiotics. Prior Anticoagulants: The patient has taken no previous anticoagulant or antiplatelet agents. ASA Grade Assessment: III - A patient with severe systemic disease. After reviewing the risks and benefits, the patient was deemed in satisfactory condition to undergo the procedure. The anesthesia plan was to use monitored anesthesia care (MAC). Immediately prior to administration of medications, the patient was re-assessed for adequacy to receive sedatives. The heart rate, respiratory rate, oxygen saturations, blood pressure, adequacy of pulmonary ventilation, and response to care were monitored throughout the procedure. The physical status of the patient was re-assessed after the procedure. The Endoscope was introduced through the mouth, and advanced to the second part of duodenum. The upper GI endoscopy was somewhat difficult due to poor endoscopic visualization from presence of whitish substance (carafate?) especially at the duodenal bulb where it was thick, only minimal and scattered at the stomach. Successful completion of the procedure was aided by copious lavage. The patient tolerated the procedure well. Findings: There is no endoscopic evidence of bleeding, erythema or inflammatory changes suggestive of gastritis, inflammation, mucosal abnormalities or ulceration in the entire examined stomach. The Upper GI series reading was of an ulceration related to possible malignancy at the mid body of the stomach. Particular attention given to the mid body of the stomach. There are prominent rugal folds but no evidence for any intraluminal mass or distortion of the shape or anatomy inside to suggest of any masses associated with the wall of the stomach, no ulcers seen either. Thick milky white substance which is probably the carafate covering the duodenal bulb which was copiously irrigated. No evidence of any masses at the first and second portion of the duodenum A hiatal hernia was found. The Z-line was 37 cm from the incisors. Impression: - Hiatal hernia. - No specimens collected. Recommendation: - Admit the patient to [facility] for ongoing care. - Resume previous diet. Danny Stacy MD Danny Stacy MD 08/09/2019 7:34:50 PM Electronically signed by Danny Stacy MD Number of Addenda: 0 Note Initiated On: 08/09/2019 11:55 AM Estimated Blood Loss: Estimated blood loss: none.
[2019-08-09] MEDS ORDERED: ONDANSETRON 4MG/2ML VIAL (J2405) IV PRN (19:45)
[2019-08-09] MEDS ORDERED: LR 1,000 ML IV SCH (19:45)
[2019-08-10] VITALS: BP 138/53
[2019-08-10 01:00] VITALS: BP 140/57
[2019-08-10 02:00] VITALS: BP 138/60
[2019-08-10 05:56] LABS: HEMATOCRIT 32.7 % (42.0-52.0); MEAN CORPUSCULAR HEMOGLOBIN 30.3 pg (27.0-33.0); MEAN CORPUSCULAR HGB CONC 32.7 g/dl (32.0-36.5); MEAN CORPUSCULAR VOLUME 92.6 fl (80.0-96.0); PLATELET COUNT, AUTOMATED 155 10^3/uL (150-450); RED BLOOD COUNT 3.53 10^6/uL (4.30-6.10); WHITE BLOOD COUNT 11.5 10^3/uL (4.0-10.0)
[2019-08-10 06:00] VITALS: BP 145/66
[2019-08-10 06:03] LABS: HEMOGLOBIN 10.7 g/dl (13.5-17.5)
[2019-08-10 06:27] LABS: CALCIUM LEVEL 8.3 MG/DL (8.8-10.2); CREATININE FOR GFR 1.76 MG/DL (0.70-1.30); GLOMERULAR FILTRATION RATE 39.1 (>35); MAGNESIUM LEVEL 1.8 MG/DL (1.8-2.4); PHOSPHORUS LEVEL 2.9 MG/DL (2.5-4.9); POTASSIUM SERUM 4.1 MEQ/L (3.5-5.1)
[2019-08-10] MEDS: PANTOPRAZOLE 40MG INJ (PROTONIX) (C9113) IV SCH (08:35)
[2019-08-10 10:00] VITALS: BP 139/56
[2019-08-10 14:00] VITALS: BP 165/78
--- NOTE | 2019-08-10 21:57 | DS.PDOC ---
Discharge Summary General Date of Admission Aug 08, 2019 at 18:59 Date of Discharge 08/10/19 Attending Physician: NYLA JARQUIN MD Discharge Summary PROCEDURES PERFORMED DURING STAY: EGD ADMITTING DIAGNOSES: 1. suspicious stomach lesion requiring EGD DISCHARGE DIAGNOSES: 1. suspicious stomach lesion requiring EGD COMPLICATIONS/CHIEF COMPLAINT: Stomach Mass Ulceration. HISTORY OF PRESENT ILLNESS: 89 y.o male w/ transferred from [facility] because an upper GI series showed a possible ulcerated stomach mass requiring EGD. He had an EGD performed by Dr. Stacy which did not show any suspicious mass. Patient was transfused two units of PRBC for anemia. He is asymptomatic today, clinically and hemodynamically stable for discharge and outpatient follow up w/ PCP & GI. HOSPITAL COURSE: As above DISCHARGE MEDICATIONS: Please see below. ALLERGIES: Please see below. PHYSICAL EXAMINATION: VITAL SIGNS: Please see below. GENERAL: No distress, frail HEENT: Normocephalic, atraumatic, moist mucous membranes NECK: Supple CARDIOVASCULAR EXAMINATION: S1, S2 RESPIRATORY EXAMINATION: Slightly diminished, no wheezing ABDOMINAL EXAMINATION: Soft, non-tender, non-distended, positive bowel sounds EXTREMITIES: Range of motion intact SKIN: No rash NEUROLOGICAL EXAMINATION: Alert and oriented 3, no focal deficits PSYCHIATRIC EXAMINATION: Calm and cooperative LABORATORY DATA: Please see below. PROGNOSIS: Guarded ACTIVITY: As tolerated DIET: Cardiac DISCHARGE PLAN: Follow up w/ PCP & GI in 1-2 weeks DISPOSITION: 01 Home, Self-Care. DISCHARGE INSTRUCTIONS: 1. As above DISCHARGE CONDITION: Stable TIME SPENT ON DISCHARGE: Greater than 27 minutes. Vital Signs/I&Os Vital Signs Date Time Temp Pulse Resp B/P (MAP) Pulse Ox O2 Delivery O2 Flow Rate FiO2 08/10/19 14:00 98.4 75 16 165/78 (107) 98 Nasal Cannula 1.0 I&O- Last 24 Hours up to 6 AM 08/10/19 06:00 Intake Total 1895 ml Output Total 1950 ml Balance -55 ml Laboratory Data Labs 24H Laboratory Tests 2 08/10/19 05:40: Nucleated Red Blood Cells % (auto) 0.3H, Anion Gap 3L, Glomerular Filtration Rate 39.1, Calcium Level 8.3L, Phosphorus Level 2.9, Magnesium Level 1.8 CBC/BMP Laboratory Tests 08/10/19 05:40 Discharge Medications Scheduled Allopurinol (Zyloprim) 300 Mg Tab, 150 MG PO DAILY, (Reported) Budesonide (Budesonide) 0.5 Mg/2 Ml Ampul.neb, 1 INHALATION INH BID, (Reported) Esomeprazole Magnesium (Esomeprazole Magnesium) 20 Mg Capsule.dr, 20 MG PO BID, (Reported) Levothyroxine Sodium (Synthroid) 125 Mcg Tablet, 125 MCG PO DAILY, (Reported) Mag Hydrox/Aluminum Hyd/Simeth (Mag-Al Plus Xs Suspension) 30 Ml Oral.susp, 30 ML PO TID, (Reported) Metoprolol Tartrate (Metoprolol Tartrate) 25 Mg Tablet, 12.5 MG PO BID, ( Reported) Pantoprazole Sodium (Pantoprazole Sodium) 40 Mg Tablet.dr, 40 MG PO DAILY, (Reported) Rosuvastatin Calcium (Rosuvastatin Calcium) 20 Mg Tablet, 20 MG PO DAILY, (Reported) Sucralfate (Sucralfate) 1 Gm Tablet, 1 GM PO BID, (Reported) Scheduled PRN Ipratropium/Albuterol Sulfate (Iprat-Albut 0.5-3(2.5) mg/3 ml) 3 Ml Ampul.neb, 1 INH INH BID PRN for SOB/WHEEZING, (Reported) Nitroglycerin (Nitrostat) 0.4 Mg Subl, 0.4 MG SL Q5MP PRN for CHEST PAIN, (Reported) Allergies Coded Allergies: ascorbic acid (Verified Adverse Reaction, Unknown, VIT C- NAUSEA, 03/21/19) iron (Verified Adverse Reaction, Unknown, MADE "SICKER THAN A DOG", 03/21/19) NYLA JARQUIN MD Aug 10, 2019 21:57
== END 2019-08-10 14:54 | disposition home or self-care (01) | DRG 392 ==
LOC: M PCU 18:59 → M MSPAV 08-09 14:24
PROVIDERS: ADMIT Internal Medicine; ATTEND Internal Medicine
PROC: 30233N1 Transfusion of Nonautologous Red Blood Cells into Peripheral Vein, Percutaneous Approach (ICD-10-PCS; 2019-08-09)
PROC: 0DJ08ZZ Inspection of Upper Intestinal Tract, Via Natural or Artificial Opening Endoscopic (ICD-10-PCS; principal; 2019-08-09 13:00)
DX: R19.09 Other intra-abdominal and pelvic swelling, mass and lump (principal); J44.9 Chronic obstructive pulmonary disease, unspecified; I25.10 Atherosclerotic heart disease of native coronary artery without angina pectoris; I50.9 Heart failure, unspecified; E03.9 Hypothyroidism, unspecified; K44.9 Diaphragmatic hernia without obstruction or gangrene; K22.70 Barrett's esophagus without dysplasia; R63.4 Abnormal weight loss; R63.0 Anorexia; K21.9 Gastro-esophageal reflux disease without esophagitis; N18.9 Chronic kidney disease, unspecified; Z85.49 Personal history of malignant neoplasm of other male genital organs; Z90.49 Acquired absence of other specified parts of digestive tract; Z87.891 Personal history of nicotine dependence; Z79.899 Other long term (current) drug therapy; Z88.8 Allergy status to other drugs, medicaments and biological substances; Z85.79 Personal history of other malignant neoplasms of lymphoid, hematopoietic and related tissues

== ENCOUNTER → 2019-10-08 | Outpatient (CLI) | payer MEDICARE, OTHER ==
[~2019-10-08] MED LIST changes: +BUDE0.5S6 INH; +ENOX30IN3 SC; +ENOX40IN3 SC; +IPRA0.00 INH; +MAG-LIQ2 PO; +METO25TA4 PO; +ONDA1INJ2 IJ; +PANT-23 PO; +SUCR1TAB56 PO; +SYNT125T PO; +VITA-243 PO; -VITA500T PO
--- NOTE | 2019-10-08 15:39 | REP ---
RENAL ULTRASOUND: Real-time sonographic evaluation of the kidneys performed and compared to a prior study of 07/10/2019. Left kidney is atrophic. Right kidney measures 11.6 x 4.5 x 5.0 cm and left kidney 7.9 x 3.8 x 4.3 cm. Both kidneys appear somewhat echogenic suggesting medical renal disease. There is no hydronephrosis bilaterally. A stent is seen in the right renal pelvis. A cyst is seen in the right upper pole, 3.7 x 3.1 x 2.8 cm. Another cyst in the right kidney mid to lower aspect measures 1 cm in diameter. Ahumada catheter is seen in the urinary bladder. IMPRESSION: No hydronephrosis. Left renal atrophy. Hyperechoic kidneys suggest medical renal disease. There is a stent seen in the right renal pelvis. Two right renal cysts are seen. Electronically Signed by Dante Edwards MD 10/08/2019 04:33 P
== END ==
LOC: M RAD 14:07
PROVIDERS: ATTEND Nurse Practitioner Family
DX: Q61.02 Congenital multiple renal cysts (principal); N26.1 Atrophy of kidney (terminal); N13.5 Crossing vessel and stricture of ureter without hydronephrosis

== ENCOUNTER → 2019-11-04 | Outpatient (REF) | payer MEDICARE, OTHER ==
[~2019-11-04] MED LIST changes: +NITR0.4D6 TD
[2019-11-05 13:47] LABS: PTH INTACT 147.8 PG/ML (18.5-88.0)
== END ==
LOC: M LAB REF 13:21
PROVIDERS: ATTEND Nurse Practitioner Family
DX: N25.81 Secondary hyperparathyroidism of renal origin (principal); E83.42 Hypomagnesemia